=== PATIENT | female | born 1955 | race Caucasian/White ===

== ENCOUNTER → 2017-01-09 | Outpatient (CLI) | payer BC ==
--- NOTE | 2017-01-09 16:51 | CT ---
EXAMINATION TYPE: CT angio chest DATE OF EXAM: 01/09/2017 4:35 PM COMPARISON: NONE HISTORY: Follow-up study for pulmonary embolism. CT DLP: 325.30 mGycm Automated exposure control for dose reduction was used. CONTRAST: CTA scan of the thorax is performed with IV Contrast, patient injected with 80 mL of Omnipaque 350, p ulmonary embolism protocol. . FINDINGS: LUNGS: Subpleural nodule left lower lobe measuring 4 mm. Subsegmental changes are seen at both lung b ases. Changes of COPD with emphysematous changes particularly involving the upper lungs. Subsegmental changes involving the left upper lobe likely related atelectasis. MEDIASTINUM: There is satisfactory enhancement of the pulmonary artery and its branches, there is no CT evidence for pulmonary embolism. There are no greater than 1 cm hilar or mediastinal lymph nodes. No pericardial effusion is seen. OTHER: Hypertrophic and degenerative change of the spine noted. Surgical clips in the gallbladder fo ssa noted. Less than 1 cm nodularity of the left adrenal gland. IMPRESSION: 1. INTERVAL RESOLUTION OF PULMONARY EMBOLISM. 2. COPD AND PLEURAL BASED THICKENING AND AREAS OF ATELECTASIS. PLEURAL-BASED NODULE IN THE LEFT LOWER LOBE LIKELY IS POSTINFLAMMATORY.
== END | disposition home or self-care (01) ==
LOC: RADCTMAIN 16:11
PROVIDERS: ATTEND Internal Medicine Critical Care Medicine
DX: I26.99 Other pulmonary embolism without acute cor pulmonale (principal); J44.9 Chronic obstructive pulmonary disease, unspecified; J92.9 Pleural plaque without asbestos; J98.11 Atelectasis; R91.1 Solitary pulmonary nodule
CPT/HCPCS: 71275; Q9967

== ENCOUNTER → 2019-07-08 | Outpatient (CLI) | payer BC ==
--- NOTE | 2019-07-09 02:57 | MR ---
EXAMINATION TYPE: MR knee LT wo con DATE OF EXAM: 07/08/2019 COMPARISON: None HISTORY: Pain in left knee / Derangement TECHNIQUE: Multiplanar, multisequence imaging of the left knee is performed without IV contrast. FINDINGS: There is a very large knee joint effusion. The posterior cruciate ligament is intact. There is some d eformity and thickening of the anterior cruciate ligament at the attachment on the tibia. There is pr obably a complete tear at the attachment on the tibia spine. There is hypertrophic spurring on the pa tella. There is moderate hypertrophic spurring of the medial and lateral femoral and tibial condyles. There is a 1 cm area of increased fluid signal in the subchondral medial tibial condyle consistent w ith a degenerative cyst formation. There is thinning and deformity of the anterior horn of the medial meniscus. There is minimal tear of the superior surface of the posterior horn medial meniscus. There is some degenerative mild thinning of the lateral meniscus. There is horizontal tear of the ant erior horn lateral meniscus. There is subcutaneous edema over the anterior infrapatellar tendon. The collateral ligaments appear intact. There is a small 2 x 1 cm popliteal cyst. 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 Degenerative cyst in the medial tibial condyle. Complete tear of the anterior cruciate ligament. Tear of the anterior horn of the lateral meniscus. Tear of the superior surface posterior horn medial meniscus. Large complex tear of the anterior horn of the medial meniscus. Very large knee joint effusion. Moderate hypertrophic osteoarthritis at the patellofemoral joint.
== END | disposition home or self-care (01) ==
LOC: RADMRIMAIN 14:47
PROVIDERS: ATTEND Family Medicine
DX: M17.12 Unilateral primary osteoarthritis, left knee (principal); S83.512A Sprain of anterior cruciate ligament of left knee, initial encounter; S83.282A Other tear of lateral meniscus, current injury, left knee, initial encounter; S83.232A Complex tear of medial meniscus, current injury, left knee, initial encounter; M85.68 Other cyst of bone, other site

== ENCOUNTER → 2019-12-11 | Outpatient (CLI) | payer BC ==
--- NOTE | 2019-12-11 13:33 | XR ---
EXAMINATION TYPE: XR knee complete LT DATE OF EXAM: 12/11/2019 COMPARISON: NONE HISTORY: Pain TECHNIQUE: Four views are submitted. FINDINGS: Joint spaces are preserved. Postsurgical changes noted with a large suprapatellar bursal fluid collec tion.. No acute fracture seen. IMPRESSION: 1. Postsurgical change with a large suprapatellar bursal fluid collection
== END | disposition home or self-care (01) ==
LOC: RADXRYALE 13:04
PROVIDERS: ATTEND Orthopaedic Surgery
DX: Z47.1 Aftercare following joint replacement surgery (principal); Z96.652 Presence of left artificial knee joint

== ENCOUNTER → 2019-12-31 | Outpatient (CLI) | payer BC ==
--- NOTE | 2019-12-31 20:56 | CONS ---
CONSULTATION DATE OF SERVICE: 12/31/2019 64-year-old lady has been evaluated in [facility] because her oximetry showed bruxism drops during sleep. Possible obstructive sleep apnea-hypopnea syndrome. HISTORY OF PRESENT ILLNESS/SLEEP-WAKE EVALUATION: SLEEP SCHEDULE: Patient's usual sleep schedule from 8 to 10 pm to 5:30 am. FALLING ASLEEP: Sometimes patient has problems with falling asleep, has TV set in bedroom. DURING SLEEP: She snores. She wakes up from sleep about 3 times to go to bathroom at night and has gone on for many years. No history of hypnagogic hallucinations, sleep paralysis or cataplexy. DURING THE DAY/SLEEP WAKE EVALUATION: During the day the patient usually does not take any naps because she is busy and no time for it. Sparks Sleepiness Scale is 2. PAST MEDICAL HISTORY: Positive for hypertension, hyperlipidemia. PAST SURGICAL HISTORY: Total replacement of left knee in October of 2019, cholecystectomy, bladder suspension. MEDICATIONS: Metoprolol extended release, atorvastatin, Naprosyn, vitamin D, fish oil. SOCIAL HISTORY: Positive for smoking for about 20 years. Quit about 20 years ago. Alcohol consumption none at the present time. REVIEW OF SYSTEMS: No chest pain. No headache. No shortness of breath, awakenings from sleep during. PHYSICAL EXAM: A lady without distress BP more than 200/77, HR 69, RR 16, height 5 and 7, weight 197.4, body mass index 30.8, temperature 98.0, oxygen saturation at room air around 93%. Oropharynx extremely low position of soft palate. Mallampati 4. NECK: 15- 1/3 inches in circumference. Supple, no JVD. Thyroid is not palpable. LUNGS: Clear to percussion and to auscultation. Good air exchange. No wheezing or rhonchi. HEART: S1, S2 regular. No murmurs, gallops, or rubs. ABDOMEN: Soft and nontender. Bowel sounds are present. No organomegaly appreciated. EXTREMITIES: Extremities very minimal 1+. Bilateral ankle edema. INSPECTOR PLATING: Awake, alert, and oriented X3. Cranial nerves 2 to 7 intact. There is no fasciculation or atrophy. noted. No focal deficits observed. IMPRESSION: 1. Snoring, multiple awakenings from sleep, extremely low position of soft palate. The patient sometimes feels sleepy during the day, but usually does not take naps and that is probably why her Sparks Sleepiness Scale is in low range. Possible obstructive sleep apnea-hypopnea syndrome. 2. History of smoking for about 20 pack years, quit about 20 years ago. 3. Hypertension not on good control with 1 medication. 4. Hyperlipidemia. 5. Status post left knee total replacement. 6. Status post cholecystectomy. 7. Bladder suspension .. PLAN: 1. Polysomnography for evaluation of patient's breathing during sleep. 2. CPAP/BiPAP titration if sleep study confirms obstructive sleep apnea-hypopnea syndrome. 3. Preferable position during sleep on the side. 4. No driving if patient feels any sleepiness. 5. I will see patient for follow up visit to explain results of testing and following plan. Thank you very much for referring this patient for consultation. Sincerely, Serafin Ledesma MD, PhD, FAASM Diplomat of [place] [employer] [place] [employer] of [facility] MMODL / IJN: [id number] /
== END | disposition home or self-care (01) ==
LOC: SLEEP 16:03
PROVIDERS: ATTEND Internal Medicine
DX: G47.8 Other sleep disorders (principal); R06.83 Snoring; I10 Essential (primary) hypertension; E78.5 Hyperlipidemia, unspecified; Z96.652 Presence of left artificial knee joint; Z87.891 Personal history of nicotine dependence; Z90.49 Acquired absence of other specified parts of digestive tract; Z98.890 Other specified postprocedural states; Z79.1 Long term (current) use of non-steroidal anti-inflammatories (NSAID); Z79.899 Other long term (current) drug therapy
CPT/HCPCS: 99211

== ENCOUNTER → 2021-12-07 | Outpatient (CLI) | payer BC ==
--- NOTE | 2021-12-08 15:02 | MM ---
Reason for exam: screening (asymptomatic). Last mammogram was performed 6 years and 2 months ago. History: Patient is postmenopausal and has history of other cancer at age 57. Family history of breast cancer in sister at age 58. Took hormonal contraceptives for 2 years beginning at age 25. Physical Findings: A clinical breast exam by your physician is recommended on an annual basis and results should be correlated with mammographic findings. MG 3D Screening Mammo W/Cad Bilateral CC and MLO view(s) were taken. Prior study comparison: October 13, 2015, bilateral MG screening mammo w CAD. February 10, 2014, bilateral digital screening mammo w/CAD. The breast tissue is extremely dense which could obscure a lesion on mammography. There are benign appearing round calcifications bilaterally. There is no discrete abnormality. ASSESSMENT: Benign, BI-RAD 2 RECOMMENDATION: Routine screening mammogram of both breasts in 1 year.
== END | disposition home or self-care (01) ==
LOC: RADMAMWWP 07:06
PROVIDERS: ATTEND Family Medicine
DX: Z12.31 Encounter for screening mammogram for malignant neoplasm of breast (principal)
CPT/HCPCS: 77063; 77067

== ENCOUNTER → 2023-06-26 | Outpatient (CLI) | payer MEDICARE ==
--- NOTE | 2023-06-27 18:20 | MM ---
Reason for Exam: Screening (asymptomatic). Last mammogram was performed 1 year(s) and 7 month(s) ago. Patient History: Menarche at age 16. First Full-Term at age 25. Postmenopausal. Patient has history of breast feeding. Hormonal Contraceptives for 2 years from age 25 until age 27. Sister had breast cancer, age 58. Risk Values: Marina 5 year model risk: 2.9%. NCI Lifetime model risk: 10.3%. Prior Study Comparison: 02/10/2014 Bilateral Screening Mammogram, [facility]. 10/13/2015 Bilateral Screening Mammogram, [facility]. 12/07/2021 Bilateral Screening Mammogram, [facility]. Tissue Density: The breast tissue is extremely dense which could obscure a lesion on mammography. Findings: Analyzed By CAD. Pattern appears symmetrical and stable. Benign scattered punctate calcifications are present bilaterally. No significant interval changes are evident. No suspicious groups of microcalcifications, spiculated or lobular masses, architectural distortion or other secondary signs of malignancy are mammographically apparent. Overall Assessment: Benign, BI-RAD 2 Management: Screening Mammogram of both breasts in 1 year. A negative mammogram report should not preclude additional follow up of suspicious palpable abnormalities. Patient should continue monthly self breast exam. A clinical breast exam by your physician is recommended on an annual basis and results should be correlated with mammographic findings. Electronically signed and approved by: Isrrael Platt D.O. Radiologis
== END | disposition home or self-care (01) ==
LOC: RADMAMWWP 06:55
PROVIDERS: ATTEND Family Medicine
DX: Z12.31 Encounter for screening mammogram for malignant neoplasm of breast (principal); Z78.0 Asymptomatic menopausal state; Z80.3 Family history of malignant neoplasm of breast
CPT/HCPCS: 77063; 77067

== ENCOUNTER 2024-02-19 18:42 | Emergency (ER) | payer MEDICARE ==
[2024-02-19 19:03] LABS: Basophils % (A) 0 %; Eosinophils # (A) 0.3 k/uL (0-0.7); Eosinophils % (A) 2 %; HCT 53.2 % (34.0-46.0); HGB 16.8 gm/dL (11.4-16.0); Lymphocytes # (A) 2.1 k/uL (1.0-4.8); Lymphocytes % (A) 15 %; MCH 29.5 pg (25.0-35.0); MCHC 31.6 g/dL (31.0-37.0); MCV 93.6 fL (80.0-100.0); Mean Platelet Volume 8.5; Monocytes # (A) 0.7 k/uL (0-1.0); Monocytes % (A) 5 %; Neutrophils # (A) 10.9 k/uL (1.3-7.7); Neutrophils % (A) 77 %; Platelet Count 210 k/uL (150-450); RBC 5.69 m/uL (3.80-5.40); RDW 13.9 % (11.5-15.5); WBC 14.2 k/uL (3.8-10.6)
--- NOTE | 2024-02-19 19:17 | ED ---
Neuro HPI - General Chief Complaint: Neuro Symptoms/Deficit Stated Complaint: Neuro Symptoms Source: EMS Mode of arrival: EMS Limitations: physical limitation - History of Present Illness Is the patient presenting with stroke symptoms?: Yes Last Known Well Date: 02/19/24 Last Known Well Time: 14:00 Onset/Timin -: hour(s) Initial Comments: Patient is a 68-year-old woman who was brought to have evaluation for suspected stroke. The patient reportedly was texting with her who was at work at 2 PM and then shortly after that stopped texting. He arrived home at 5:30 PM and found her lying on the floor she appeared unable to move her right side and she was not speaking. He called EMS who brings the patient here. The patient is not able to add any additional history. Time: 19:07 Last Observed Normal: 14:00 Location: speech, right face, right arm, right leg, altered History of same: No Place: home Severity: severe Quality: weak Improves With: none Worsens With: none Context: sudden onset - Related Data Home Medications: Home Medications Medication Instructions Recorded Confirmed Metoprolol Succinate (ER) [Toprol 50 mg PO HS 09/06/16 09/06/16 Xl] Simvastatin [Zocor] 40 mg PO HS 09/06/16 09/06/16 Previous Rx's Medication Instructions Recorded Levofloxacin [Levaquin] 500 mg PO DAILY #5 tab 09/09/16 Allergies/Adverse Reactions: Allergies Allergy/AdvReac Type Severity Reaction Status Date / Time No Known Allergies Allergy Verified 09/06/16 18:01 Review of Systems ROS Statement: Those systems with pertinent positive or pertinent negative responses have been documented in the HPI. ROS Other: All systems not noted in ROS Statement are negative. Limitations: ROS unobtainable due to patients medical condition General Exam General appearance: alert Head exam: Present: atraumatic, normocephalic Eye exam: Present: PERRL, other (Gaze is deviated to the left). Absent: EOMI, scleral icterus, conjunctival injection ENT exam: Present: normal oropharynx, mucous membranes moist Neck exam: Present: normal inspection, full ROM. Absent: meningismus Respiratory exam: Present: respiratory distress (There is mild tachypnea), rhonchi. Absent: wheezes, rales, stridor, accessory muscle use Cardiovascular Exam: Present: regular rate, normal rhythm, normal heart sounds. Absent: systolic murmur, diastolic murmur, rubs, gallop GI/Abdominal exam: Present: soft. Absent: distended, tenderness, guarding, rebound, rigid, mass Extremities exam: Present: normal inspection, normal capillary refill. Absent: pedal edema, calf tenderness Back exam: Present: normal inspection. Absent: CVA tenderness (R), CVA tenderness (L) Neurological exam: Present: alert. Absent: oriented X3 Expanded Cranial nerves: EOM's Intact: Abnormal Right, Gag Reflex: Normal Motor strength exam: RUE: 0, LUE: 2/1, RLE: 0, LLE: 2/1 Eye Response: (4) open spontaneously Motor Response: (5) localizes to pain Verbal Response: incomprehensible sounds Skin exam: Present: warm, dry, intact, normal color. Absent: rash Stroke MDM - Lab Data Result diagrams: 02/19/24 18:54 02/19/24 19:12 Lab Results 02/19/24 02/19/24 02/19/24 Range/Units 18:46 18:54 18:54 WBC 14.2 H (3.8-10.6) k/uL RBC 5.69 H (3.80-5.40) m/uL Hgb 16.8 H (11.4-16.0) gm/dL Hct 53.2 H (34.0-46.0) % MCV 93.6 (80.0-100.0) fL MCH 29.5 (25.0-35.0) pg MCHC 31.6 (31.0-37.0) g/dL RDW 13.9 (11.5-15.5) % Plt Count 210 (150-450) k/uL MPV 8.5 Neutrophils % 77 % Lymphocytes % 15 % Monocytes % 5 % Eosinophils % 2 % Basophils % 0 % Neutrophils # 10.9 H (1.3-7.7) k/uL Lymphocytes # 2.1 (1.0-4.8) k/uL Monocytes # 0.7 (0-1.0) k/uL Eosinophils # 0.3 (0-0.7) k/uL Basophils # 0.0 (0-0.2) k/uL PT 10.6 (10.0-12.5) sec INR 1.0 (<1.2) APTT 22.8 (22.0-30.0) sec Sodium (137-145) mmol/L Potassium (3.5-5.1) mmol/L Chloride (98-107) mmol/L Carbon Dioxide (22-30) mmol/L Anion Gap mmol/L BUN (7-17) mg/dL Creatinine (0.52-1.04) mg/dL Est GFR (CKD-EPI)AfAm (>60 ml/min/1.73 sqM) Est GFR (CKD-EPI)NonAf (>60 ml/min/1.73 sqM) Glucose (74-99) mg/dL POC Glucose (mg/dL) 130 H (70-110) mg/dL POC Glu Transmitter Engineer In Charge ID Whitney Peña Calcium (8.4-10.2) mg/dL Total Bilirubin (0.2-1.3) mg/dL AST (14-36) U/L ALT (4-34) U/L Alkaline Phosphatase (38-126) U/L Creatine Kinase (30-135) U/L Total Creatine Kinase (30-223) u/L CK-MM (CK-3) (96.7-100.0) % CK-MB (CK-2) (0.0-3.3) % CK-BB (CK-1) (0.0) % Troponin I (0.000-0.034) ng/mL Total Protein (6.3-8.2) g/dL Albumin (3.5-5.0) g/dL 02/19/24 02/19/24 02/19/24 Range/Units 19:06 19:12 19:12 WBC (3.8-10.6) k/uL RBC (3.80-5.40) m/uL Hgb (11.4-16.0) gm/dL Hct (34.0-46.0) % MCV (80.0-100.0) fL MCH (25.0-35.0) pg MCHC (31.0-37.0) g/dL RDW (11.5-15.5) % Plt Count (150-450) k/uL MPV Neutrophils % % Lymphocytes % % Monocytes % % Eosinophils % % Basophils % % Neutrophils # (1.3-7.7) k/uL Lymphocytes # (1.0-4.8) k/uL Monocytes # (0-1.0) k/uL Eosinophils # (0-0.7) k/uL Basophils # (0-0.2) k/uL PT (10.0-12.5) sec INR (<1.2) APTT (22.0-30.0) sec Sodium 141 (137-145) mmol/L Potassium 4.2 (3.5-5.1) mmol/L Chloride 107 (98-107) mmol/L Carbon Dioxide 26 (22-30) mmol/L Anion Gap 8 mmol/L BUN 23 H (7-17) mg/dL Creatinine 0.88 (0.52-1.04) mg/dL Est GFR (CKD-EPI)AfAm 79 (>60 ml/min/1.73 sqM) Est GFR (CKD-EPI)NonAf 69 (>60 ml/min/1.73 sqM) Glucose 131 H (74-99) mg/dL POC Glucose (mg/dL) (70-110) mg/dL POC Glu Transmitter Engineer In Charge ID Calcium 9.4 (8.4-10.2) mg/dL Total Bilirubin 0.8 (0.2-1.3) mg/dL AST 68 H (14-36) U/L ALT 75 H (4-34) U/L Alkaline Phosphatase 142 H (38-126) U/L Creatine Kinase 72 (30-135) U/L Total Creatine Kinase 72 (30-223) u/L CK-MM (CK-3) 98.5 (96.7-100.0) % CK-MB (CK-2) 0.0 (0.0-3.3) % CK-BB (CK-1) 1.5 H (0.0) % Troponin I <0.012 (0.000-0.034) ng/mL Total Protein 7.3 (6.3-8.2) g/dL Albumin 4.1 (3.5-5.0) g/dL - Medical Decision Making Patient is 68-year-old woman brought to have evaluation for suspected stroke. On arrival she does have right-sided neglect and flaccid paralysis. The patient not able to follow commands for the remainder of the neuroexam though does have some movement to left side, however does not resist gravity. Patient sent directly to CT following the initial exam. Case discussed with Dr. Serrano, who did look at the CT scans, phoned back and requested patient to be sent directly to the interventional suite at [facility]. The patient is outside of the [facility] window. Transfer team is contacted to facilitate transfer. The patient had CT of the brain which I interpreted as negative for acute intracranial hemorrhage and negative for acute bony injury The patient had chest x-ray which I interpreted as negative for acute infiltrate, pneumothorax, congestive heart failure Was pt. sent in by a medical professional or institution (, PA, DATER ASSEMBLER, urgent care, hospital, or intermediate...) When possible be specific @ -[No] Did you speak to anyone other than the patient for history (EMS, parent, family, police, friend...)? What history was obtained from this source @ -[EMS gave history. Family gave history Did you review nursing and triage notes (agree or disagree)? Why? @ -[I reviewed and agree with nursing and triage notes] Were old charts reviewed (outside hosp., previous admission, EMS record, old EKG, old radiological studies, urgent care reports/EKG's, intermediate records)? Report findings @ -[No old charts were reviewed] Differential Diagnosis (chest pain, altered mental status, abdominal pain women, abdominal pain men, vaginal bleeding, weakness, fever, dyspnea, syncope, headache, dizziness, GI bleed, back pain, seizure, CVA, palpatations, mental health, musculoskeletal)? @ -[Differential CVA Ischemic stroke, hemorrhagic stroke, brain tumor, atypical migraine, Wernicke's encephalopathy, seizure, multiple sclerosis, meningitis, encephalitis, hypoglycemia, Guillain-Arias, electrolytes disturbance, myasthenia gravis.... This is not meant to be an all-inclusive list EKG interpreted by me (3pts min.). @ -[I interpreted as above] X-rays interpreted by me (1pt min.). @ -[I interpreted as above CT interpreted by me (1pt min.). @ -[I interpreted as above U/S interpreted by me (1pt. min.). @ -[None done] What testing was considered but not performed or refused? (CT, X-rays, U/S, l abs)? Why? @ -[None] What meds were considered but not given or refused? Why? @ -[The patient is outside of the window for thrombolytic Did you discuss the management of the patient with other professionals (professionals i.e. , PA, DATER ASSEMBLER, lab, RT, psych nurse, social studies department chair, manager perioperative, teacher, project control officer, comp field case manager)? Give summary @ -Yes, see the above notes for discussion with interventional stroke team Was smoking cessation discussed for >3mins.? @ -[No] Was critical care preformed (if so, how long)? @ -[Yes 40 minutes Were there social determinants of health that impacted care today? How? (Homelessness, low income, unemployed, alcoholism, drug addiction, transportation, low edu. Level, literacy, decrease access to med. care, nursing home, rehab)? @ -[No] Was there de-escalation of care discussed even if they declined (Discuss DNR or withdrawal of care, Hospice)? DNR status @ -[No] What co-morbidities impacted this encounter? (DM, HTN, Smoking, COPD, CAD, Cancer, CVA, ARF, Chemo, Hep., AIDS, mental health diagnosis, sleep apnea, morbid obesity)? @ -[Hypertension, hypercholesterolemia Was patient admitted / discharged? Hospital course, mention meds given and route, prescriptions, significant lab abnormalities, going to OR and other pertinent info. @ -[See above note Undiagnosed new problem with uncertain prognosis? @ -[No] Drug Therapy requiring intensive monitoring for toxicity (Heparin, Nitro, Insulin, Cardizem)? @ -[No] Were any procedures done? @ -[No] Diagnosis/symptom? @ -[Acute ischemic stroke Acute, or Chronic, or Acute on Chronic? @ -[Acute Uncomplicated (without systemic symptoms) or Complicated (systemic symptoms)? @ -[Uncomplicated Side effects of treatment? @ -[No] Exacerbation, Progression, or Severe Exacerbation? @ -[No] Poses a threat to life or bodily function? How? (Chest pain, USA, NM, pneumonia, PE, COPD, DKA, ARF, appy, cholecystitis, CVA, Diverticulitis, Homicidal, Suicidal, threat to staff... and all critical care pts) @ -[Yes patient requires further treatment for acute ischemic stroke to preserve brain function and will be transferred - EKG Data -: EKG Interpreted by Sd EKG shows normal: sinus rhythm, axis (Normal), intervals (QT interval prolonged.) Rate: normal (Rate 65 bpm) Past Medical History Past Medical History: Hyperlipidemia, Hypertension, Pneumonia Additional Past Medical History / Comment(s): MURMUR WHEN YOUNGER, MILD URINARY INCONT-WEARS A PAD. History of Any Multi-Drug Resistant Organisms: None Reported Past Surgical History: Bladder Surgery, Cholecystectomy Additional Past Surgical History / Comment(s): bladder suspension ,EGD Past Anesthesia/Blood Transfusion Reactions: No Reported Reaction Additional Past Anesthesia/Blood Transfusion Reaction / Comment(s): HAD BLOOD TRANSFUSION AFTER CHILDBIRTH-NO REACTION Past Psychological History: No Psychological Hx Reported Past Alcohol Use History: None Reported Additional Past Alcohol Use History / Comment(s): STARTED SMOKING AT AGE 15(1968_ AND QUIT 2000,SMOKED 2 PPD Past Drug Use History: None Reported - Past Family History Mother Family Medical History: Cancer Father Family Medical History: Congestive Heart Failure (CHF) Course Vital Signs 02/19/24 02/19/24 02/19/24 18:42 18:51 18:54 Pulse Rate 68 68 Respiratory 24 Rate Blood Pressure 230/128 203/81 170/136 O2 Sat by Pulse 94 L Oximetry 02/19/24 02/19/24 02/19/24 19:00 19:08 19:31 Pulse Rate 71 66 Respiratory 20 16 Rate Blood Pressure 185/89 168/141 175/92 O2 Sat by Pulse 94 L 95 Oximetry - Reevaluation(s) Reevaluation #1: 02/19/24 19:48 Case discussed with patient and with patient's family regarding transfer and patient's family is in agreement. Critical Care Time Critical Care Time: Yes (40 minutes) Disposition Clinical Impression: Cerebrovascular accident (CVA) Disposition: OTHER INSTITUTION NOT DEFINED Condition: Critical Is patient prescribed a controlled substance at d/c from ED?: No Referrals: Farzad Deluca DO [Primary Care Provider] - 1-2 days - Out of Hospital Transfer - Req. Specs Out of Hospital Transfer - Requested Specifics: Neurological ICU
[2024-02-19 19:19] LABS: Partial Thromboplastin Time 22.8 sec (22.0-30.0); Prothrombin Time 10.6 sec (10.0-12.5)
--- NOTE | 2024-02-19 19:26 | CT ---
EXAMINATION TYPE: CODE STROKE: CT brain wo contr CT DLP: 1246.6 mGycm, Automated exposure control for dose reduction was used. DATE OF EXAM: 02/19/2024 7:14 PM COMPARISON: None. CLINICAL INDICATION:Female, 68 years old with history of Neuro deficit, acute, stroke suspected, Neur o deficit, acute, stroke suspected. unresponsive TECHNIQUE: Brain: Axial CT images of the brain were obtained with coronal and sagittal reformats created and rev iewed. Contrast used: None. Oral contrast used: None. FINDINGS: Extra-axial spaces: No abnormal extra-axial fluid collections. Ventricular system: Ventricles appear dilated in proportion to the degree of cerebral atrophy. Cerebral parenchyma: No increased attenuation to suggest acute intraparenchymal hemorrhage. The gra y-white matter interface appears maintained. Mild/moderate generalized brain atrophy. Scattered hyp oattenuating areas are seen within the cerebral white matter, nonspecific but most often seen with ch ronic microvascular ischemic changes; mild/moderate in degree. Cerebellum: No acute abnormality. Mass effect: No evidence of mass effect or midline shift. Intracranial vasculature: Atherosclerotic calcifications of the larger arteries near the skull base. Soft tissues: No acute or concerning abnormality. Visualized orbits: Orbital contents appear grossly intact. Calvarium/osseous structures: No evidence of calvarial fracture. Paranasal sinuses and mastoid air cells: Mild scattered paranasal sinus mucosal thickening. No signif icant fluid. MRI is more sensitive for detecting acute processes such as infarct, and may be considered if clinica lly warranted. IMPRESSION: 1. No CT evidence of an acute intracranial abnormality. 2. Atrophy and chronic microvascular ischemic white matter changes.
[2024-02-19 19:39] LABS: ALT 75 U/L (4-34); AST 68 U/L (14-36); African American GFR (CKD) 79 (>60 ml/min/1.73 sqM); Albumin 4.1 g/dL (3.5-5.0); Alkaline Phosphatase 142 U/L (38-126); Anion Gap 8 mmol/L; Blood Urea Nitrogen 23 mg/dL (7-17); Calcium 9.4 mg/dL (8.4-10.2); Carbon Dioxide 26 mmol/L (22-30); Chloride 107 mmol/L (98-107); Creatine Kinase 72 U/L (30-135); Glucose 131 mg/dL (74-99); Non-African American GFR(CKD) 69 (>60 ml/min/1.73 sqM); Potassium 4.2 mmol/L (3.5-5.1); Sodium 141 mmol/L (137-145); Total Bilirubin 0.8 mg/dL (0.2-1.3); Total Protein 7.3 g/dL (6.3-8.2)
[2024-02-19 19:48] VITALS: BP 175/92; PULSE 66; RESP 16
--- NOTE | 2024-02-19 19:53 | CT ---
EXAMINATION TYPE: CT angio head neck DATE OF EXAM: 02/19/2024 7:21 PM COMPARISON: Same date CT head. CLINICAL INDICATION:Female, 68 years old with history of Neuro deficit, acute, stroke suspected; [facility], TECHNIQUE: Axially acquired helical CT angiogram of the head and neck was obtained with contrast. Axi al images are supplemented with 3D reconstructions [facility] NAS[facility]ET criteria used. Contrast used: 65 mL Isovue 370 IV Oral contrast used: None. CT DLP: 691.4 mGycm, Automated exposure control for dose reduction was used. FINDINGS: CTA Neck: A 3 vessel aortic arch is shown. Atherosclerotic plaque is present in the aortic arch and at the [place] gin of the left subclavian artery with about 50% diameter stenosis. No dissection flap. Right carotid system: The common carotid is patent. No significant plaque. There is no hemodynamicall y significant diameter stenosis, dissection, nor pseudoaneurysm present. Left carotid system: The common carotid is patent. Small amount of mostly calcified plaque at the bif urcation, proximal ECA and ICA. There is no hemodynamically significant diameter stenosis, dissection , nor pseudoaneurysm present. Vertebral arteries: Mild atherosclerotic calcification without significant stenosis in the proximal l eft vertebral artery. No significant plaque or significant stenosis of the proximal right vertebral a rtery. The vertebrals are then otherwise patent to the skull base. The left vertebral artery is dominant. Other: Visualized neck soft tissues show no concerning abnormality. Visualized thyroid is heterogeneo usly enhancing with subcentimeter nodule along the right-sided isthmus suggested approximately 11 mm in size. Cervical spine shows mild/moderate degenerative changes with preserved alignment and no crit ical canal/foraminal stenosis. Imaged portions of the lung apices show scarring and senescent changes . No acute infiltrate or pneumothorax.. CTA Head: There are some calcifications of the cavernous portions of the ICAs without significant stenosis. On the right, supraclinoid ICA, bifurcation, SHANEL, MCA appear normally patent. It appears the right AC A supplies both of the ACAs farther distally. Proximal left SHANEL is relatively hypoplastic. On the left, the supraclinoid ICA is patent. Hypoplastic A1 segment of the left SHANEL. Left MCA is not seen to be opacified in its M1 and M2 segments, likely occluded with thrombosis. Some reconstitution of flow seen in distal MCA branches but the MCA territory appears relatively hyperperfused. No hemorr sada is suggested. The intracranial vertebral arteries enhance normally, left is dominant and right essentially ends as the PICA. Basilar artery is patent and mildly tortuous. Normal basilar bifurcation without evidence o f aneurysm. Visualized proximal cancer program consultant are patent. Posterior communicating arteries are not clearly identified. No hemodynamically significant stenosis, aneurysm, dissection, or arteriovenous malformation is shown . The dural venous sinuses appear grossly patent without evidence of thrombosis. Other: Please refer to same-day CT head report.. IMPRESSION: CTA neck: 1. Patent CTA neck. 2. No occlusion, hemodynamically significant diameter stenosis, dissection, or pseudoaneurysm in the carotid or vertebral arteries in the neck. CTA head: OCCLUDED PROXIMAL TO MID LEFT MIDDLE CEREBRAL ARTERY.
[2024-02-19 19:55] LABS: Glucose,Whole Blood 130 mg/dL (70-110)
[2024-02-19] MEDS: LABETALOL 5 MG/ML VIAL MDV IVP STA (19:55)
--- NOTE | 2024-02-19 20:43 | XR ---
EXAMINATION TYPE: XR chest 1V portable DATE OF EXAM: 02/19/2024 7:48 PM CLINICAL INDICATION:Female, 68 years old with history of altered mental status; [facility] COMPARISON: Chest radiographs from 09/07/2016. TECHNIQUE: XR chest 1V portable Frontal view of the chest. FINDINGS: Lungs/Pleura: There is flattening of the diaphragm with increased lucency of the lungs. No evidence o f pneumothorax, pleural effusion or focal consolidation. Pulmonary vascularity: Unremarkable. Heart/mediastinum: Cardiomediastinal silhouette is unremarkable. Musculoskeletal: No acute osseous pathology. IMPRESSION: Mild pulmonary vascular congestion superimposed on COPD.
== END 2024-02-19 19:58 | disposition other institution (70) ==
LOC: EC 18:42
DX: I63.9 Cerebral infarction, unspecified (principal); I67.82 Cerebral ischemia; I10 Essential (primary) hypertension; E78.00 Pure hypercholesterolemia, unspecified; Z87.891 Personal history of nicotine dependence; Z90.49 Acquired absence of other specified parts of digestive tract
CPT/HCPCS: 36415; 93005; 82552; 80053; 82550 ×2; 84484; 85025; 85610; 85730; 71045; 70496; 70450; 70498; 99291; Q9967; J1920

== ENCOUNTER → 2024-03-11 | Outpatient (CLI) | payer MEDICARE, BC ==
--- NOTE | 2024-03-11 23:21 | CT ---
EXAMINATION TYPE: CT brain wo con DATE OF EXAM: 03/11/2024 COMPARISON: 02/19/2024 INDICATION: left mca ischemic stroke DLP: 1150.50 mGycm, Automated exposure control for dose reduction was used. CONTRAST: None CT of the brain is performed utilizing 3 mm thick sections through the posterior fossa and 3 mm thick sections through the remaining calvarium. Study is performed within 24 hours of arrival to the hosp ital. No abnormal hyperdensity is present to suggest an acute intracranial hemorrhage. No mass lesion is evident. No acute infarcts are evident. There is hypodensity within the left middle cerebral artery distributi on within the subcortical white matter. Exvacuo effect is evident on regional sulci. No mass effect i s evident. Findings can be compatible with prior subcortical infarct. Ventricles and sulci are prominent for the patient age. Paranasal sinuses and mastoid air cells within the [id number] are clear. IMPRESSION: 1. 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
== END | disposition home or self-care (01) ==
LOC: RADCTMAIN 13:43
PROVIDERS: ATTEND Psychiatry & Neurology Vascular Neurology
DX: I63.412 Cerebral infarction due to embolism of left middle cerebral artery (principal); R13.12 Dysphagia, oropharyngeal phase; E78.2 Mixed hyperlipidemia; E87.1 Hypo-osmolality and hyponatremia; G47.33 Obstructive sleep apnea (adult) (pediatric); I10 Essential (primary) hypertension; I48.0 Paroxysmal atrial fibrillation; Z86.73 Personal history of transient ischemic attack (TIA), and cerebral infarction without residual deficits
CPT/HCPCS: 70450

== ENCOUNTER 2024-03-22 04:25 | Inpatient (IN) | payer MEDICARE, BC ==
--- NOTE | 2024-03-22 05:02 | ED ---
SOB HPI - General Chief Complaint: Shortness of Breath Stated Complaint: Low oxygen saturations Time Seen by Provider: 03/22/24 04:34 Source: patient, EMS Mode of arrival: EMS Limitations: no limitations - History of Present Illness Initial Comments: This patient is a 68-year-old woman who arrives from retirement to have evaluation for dyspnea. The patient is in retirement for rehabilitation after having had stroke with right-sided weakness and expressive aphasia. The patient developed marked shortness of breath, the retirement staff noted that she was laboring somewhat and that she was appearing dusky. EMS arrived and found that the oxygen saturations were in the upper 70s. The patient was placed on oxygen and transported here. Patient had not noted fever or cough. No chest pain. In addition the patient had reportedly tested positive for COVID infection 2 days ago at the retirement. Patient appears to have history of bilateral PE in 2015, does not appear to be currently taking coagulant medication MD Complaint: shortness of breath -: hour(s) Severity: severe Severity scale (1-10): 0 Consistency: constant Improves With: oxygen Worsens With: nothing Associated Symptoms: denies other symptoms Treatments Prior to Arrival: oxygen - Related Data Home Medications Medication Instructions Recorded Confirmed Acetaminophen [Tylenol Arthritis] 650 mg PO Q4H PRN 03/22/24 03/22/24 Amiodarone [Cordarone] 200 mg PO BID@0800,17003/22/24 03/22/24 Ascorbic Acid [Vitamin C] 1,000 mg PO DAILY@0803/22/24 03/22/24 Aspirin 81 mg PO DAILY@0800 03/22/24 03/22/24 Cholecalciferol (Vitamin D3) 50 mcg PO DAILY@0803/22/24 03/22/24 [Vitamin D3 (50 Mcg = 2000 Iu)] Losartan Potassium [Cozaar] 100 mg PO DAILY@0800 03/22/24 03/22/24 Magic Cup 1 dose PO BID@1200,1700 03/22/24 03/22/24 Magnesium Hydroxide [Milk of 7,200 mg PO Q48H PRN 03/22/24 03/22/24 Magnesia Concentrate] Na Phos,M-B/Na Phos,Di-Ba [Fleet 133 ml RECTAL DAILY PRN 03/22/24 03/22/24 Adult] Zinc Sulfate [Orazinc] 220 mg PO DAILY@0800 03/22/24 03/22/24 amLODIPine [Norvasc] 5 mg PO BID@0800,1700 03/22/24 03/22/24 bisacodyL [Dulcolax] 10 mg RECTAL DAILY PRN 03/22/24 03/22/24 carvediloL [Coreg] 25 mg PO BID@0800,1700 03/22/24 03/22/24 polyethylene glycoL 3350 [Miralax] 17 gm PO DAILY@0800 03/22/24 03/22/24 Previous Rx's Medication Instructions Recorded Albuterol Inhaler [Ventolin Hfa 2 puff INHALATION RT-Q2H PRN each 04/01/24 Inhaler] Apixaban [Eliquis] 5 mg PO BID tab 04/01/24 Famotidine [Pepcid] 20 mg PO BID tab 04/01/24 Furosemide [Lasix] 40 mg PO DAILY tab 04/01/24 Pantoprazole [Protonix] 40 mg PO AC-BRKFST tab 04/01/24 predniSONE See Taper PO DIRECTED #30 tab 04/01/24 Allergies Allergy/AdvReac Type Severity Reaction Status Date / Time No Known Allergies Allergy Verified 03/22/24 10:12 Review of Systems ROS Statement: Those systems with pertinent positive or pertinent negative responses have been documented in the HPI. ROS Other: All systems not noted in ROS Statement are negative. Constitutional: Denies: fever, chills, weakness Respiratory: Reports: dyspnea. Denies: cough, wheezes, hemoptysis Cardiovascular: Denies: chest pain, palpitations, orthopnea, edema, syncope Gastrointestinal: Denies: abdominal pain, vomiting, diarrhea Genitourinary: Denies: dysuria, hematuria Musculoskeletal: Denies: back pain Skin: Denies: rash Neurological: Denies: headache, weakness, numbness Past Medical History Past Medical History: Hyperlipidemia, Hypertension, Pneumonia Additional Past Medical History / Comment(s): MURMUR WHEN YOUNGER, MILD URINARY INCONT-WEARS A PAD. History of Any Multi-Drug Resistant Organisms: None Reported Past Surgical History: Bladder Surgery, Cholecystectomy Additional Past Surgical History / Comment(s): bladder suspension ,EGD Past Anesthesia/Blood Transfusion Reactions: No Reported Reaction Additional Past Anesthesia/Blood Transfusion Reaction / Comment(s): HAD BLOOD TR ANSFUSION AFTER CHILDBIRTH-NO REACTION Past Psychological History: No Psychological Hx Reported Past Alcohol Use History: None Reported Past Drug Use History: None Reported - Past Family History Mother Family Medical History: Cancer Father Family Medical History: Congestive Heart Failure (CHF) General Exam General appearance: alert, in distress Head exam: Present: atraumatic, normocephalic Eye exam: Present: normal appearance. Absent: scleral icterus, conjunctival injection ENT exam: Present: normal oropharynx Neck exam: Present: normal inspection Respiratory exam: Present: respiratory distress, wheezes. Absent: rales, rhonchi, stridor, chest wall tenderness, accessory muscle use, decreased breath sounds Cardiovascular Exam: Present: regular rate, normal rhythm, normal heart sounds. Absent: systolic murmur, diastolic murmur, rubs, gallop GI/Abdominal exam: Present: soft. Absent: distended, tenderness, guarding, rebound, rigid, mass Extremities exam: Present: normal inspection, normal capillary refill. Absent: pedal edema, calf tenderness Back exam: Present: normal inspection. Absent: CVA tenderness (R), CVA tenderness (L) Neurological exam: Present: alert Skin exam: Present: warm, dry, intact, normal color. Absent: rash Course Vital Signs 03/22/24 03/22/24 03/22/24 04:38 04:39 04:52 Temperature 98.0 F Pulse Rate 62 61 Respiratory 20 19 Rate Blood Pressure 148/79 144/52 O2 Sat by Pulse 99 99 Oximetry Fraction of 100 Inspired Oxygen (FIO2) 03/22/24 03/22/24 03/22/24 06:23 07:18 12:45 Temperature 97.7 F Pulse Rate 60 60 63 Respiratory 17 20 18 Rate Blood Pressure 141/48 134/51 135/60 O2 Sat by Pulse 100 96 98 Oximetry Fraction of Inspired Oxygen (FIO2) 03/22/24 03/22/24 03/22/24 17:02 21:01 22:56 Temperature Pulse Rate 67 56 L 58 L Respiratory 16 14 13 Rate Blood Pressure 143/66 129/49 123/59 O2 Sat by Pulse 98 96 92 L Oximetry Fraction of Inspired Oxygen (FIO2) 03/23/24 03/23/24 03/23/24 00:44 03:00 04:30 Temperature Pulse Rate 58 L 59 L 69 Respiratory 18 13 12 Rate Blood Pressure 126/58 126/51 135/47 O2 Sat by Pulse 95 92 L 95 Oximetry Fraction of Inspired Oxygen (FIO2) 03/23/24 03/23/24 03/23/24 06:23 06:26 07:44 Temperature 97.7 F 97.7 F Pulse Rate 66 71 Respiratory 12 12 Rate Blood Pressure 138/53 138/53 O2 Sat by Pulse 95 95 96 Oximetry Fraction of Inspired Oxygen (FIO2) 03/23/24 03/23/24 03/23/24 08:25 13:37 14:00 Temperature 97.2 F L Pulse Rate 75 63 Respiratory 18 20 Rate Blood Pressure 146/60 142/53 O2 Sat by Pulse 93 L 93 L 93 L Oximetry Fraction of Inspired Oxygen (FIO2) Medical Decision Making - Medical Decision Making The patient had chest x-ray that I interpreted as negative for acute infiltrate, pneumothorax. The patient had CT scan of the chest that I interpreted as positive for pulmonary embolism. Was pt. sent in by a medical professional or institution (, PA, WAVE SOLDER OFFBEARER, urgent care, hospital, or retirement...) When possible be specific @ -Yes sent from long-term care facility to have further evaluation Did you speak to anyone other than the patient for history (EMS, parent, family, police, friend...)? What history was obtained from this source @ -[No] Did you review nursing and triage notes (agree or disagree)? Why? @ -[I reviewed and agree with nursing and triage notes] Were old charts reviewed (outside hosp., previous admission, EMS record, old EKG, old radiological studies, urgent care reports/EKG's, retirement records)? Report findings @ -[Transfer records were reviewed] Differential Diagnosis (chest pain, altered mental status, abdominal pain women, abdominal pain men, vaginal bleeding, weakness, fever, dyspnea, syncope, headache, dizziness, GI bleed, back pain, seizure, CVA, palpatations, mental health, musculoskeletal)? @ -[Differential Dyspnea: Coronary syndrome, arrhythmia, tamponade, asthma, COPD, pulmonary embolism, pneumonia, pneumothorax, pulmonary effusion, anaphylaxis, diabetic ketoacidosis, flailed chest, pulmonary contusion, diaphragmatic rupture, anemia, neuromuscular, this is not meant to be an all-inclusive list. EKG interpreted by me (3pts min.). @ -[I interpreted as above] X-rays interpreted by me (1pt min.). @ -[I interpreted as above CT interpreted by me (1pt min.). @ -[I interpreted as above U/S interpreted by me (1pt. min.). @ -[None done] What testing was considered but not performed or refused? (CT, X-rays, U/S, lab s)? Why? @ -[None] What meds were considered but not given or refused? Why? @ -[None] Did you discuss the management of the patient with other professionals (professionals i.e. , PA, WAVE SOLDER OFFBEARER, lab, RT, psych nurse, clinical social worker, gluing machine operator electronic, teacher, light armored reconnaissance officer, upper caser)? Give summary @ -[Case discussed with admitting physician and treatment recommendations incorporated Was smoking cessation discussed for >3mins.? @ -[No] Was critical care preformed (if so, how long)? @ -[Yes, 35 minutes Were there social determinants of health that impacted care today? How? (Homelessness, low income, unemployed, alcoholism, drug addiction, transportation, low edu. Level, literacy, decrease access to med. care, fci, rehab)? @ -[No] Was there de-escalation of care discussed even if they declined (Discuss DNR or withdrawal of care, Hospice)? DNR status @ -[No] What co-morbidities impacted this encounter? (DM, HTN, Smoking, COPD, CAD, Cancer, CVA, ARF, Chemo, Hep., AIDS, mental health diagnosis, sleep apnea, morbid obesity)? @ -[COPD.-Hypertension. Stroke. Was patient admitted / discharged? Hospital course, mention meds given and route, prescriptions, significant lab abnormalities, going to OR and other pertinent info. @ -[Patient is 68-year-old woman who is sent to have evaluation for dyspnea and low pulse oximetry readings. The patient does appear to have acute pulmonary embolism bilaterally. The patient is admitted and started on IV heparin and will have further pulmonology consultation, which is pending at the time of shift change. Undiagnosed new problem with uncertain prognosis? @ -[No] Drug Therapy requiring intensive monitoring for toxicity (Heparin, Nitro, Insulin, Cardizem)? @ -[IV heparin Were any procedures done? @ -[No] Diagnosis/symptom? @ -[Acute pulmonary embolism. Respiratory failure with hypoxemia Acute, or Chronic, or Acute on Chronic? @ -[Acute Uncomplicated (without systemic symptoms) or Complicated (systemic symptoms)? @ -[Complicated by hypoxemia Side effects of treatment? @ -[No] Exacerbation, Progression, or Severe Exacerbation? @ -[No] Poses a threat to life or bodily function? How? (Chest pain, USA, MD, pneumonia, PE, COPD, DKA, ARF, appy, cholecystitis, CVA, Diverticulitis, Homicidal, Suicidal, threat to staff... and all critical care pts) @ -[Yes - Lab Data Result diagrams: 03/29/24 07:59 03/29/24 07:59 Lab Results 03/22/24 03/22/24 03/22/24 Range/Units 04:46 04:46 04:46 WBC 8.2 (3.8-10.6) k/uL RBC 4.67 (3.80-5.40) m/uL Hgb 14.3 (11.4-16.0) gm/dL Hct 43.6 (34.0-46.0) % MCV 93.3 (80.0-100.0) fL MCH 30.7 (25.0-35.0) pg MCHC 32.9 (31.0-37.0) g/dL RDW 14.7 (11.5-15.5) % Plt Count 112 L (150-450) k/uL MPV 8.9 Neutrophils % 66 % Lymphocytes % 19 % Monocytes % 8 % Eosinophils % 5 % Basophils % 0 % Neutrophils # 5.5 (1.3-7.7) k/uL Lymphocytes # 1.6 (1.0-4.8) k/uL Monocytes # 0.7 (0-1.0) k/uL Eosinophils # 0.4 (0-0.7) k/uL Basophils # 0.0 (0-0.2) k/uL PT 11.3 (10.0-12.5) sec INR 1.0 (<1.2) APTT 22.1 (22.0-30.0) sec D-Dimer >35.00 H (<0.60) mg/L FEU Sodium 139 (137-145) mmol/L Potassium 5.1 (3.5-5.1) mmol/L Chloride 108 H (98-107) mmol/L Carbon Dioxide 24 (22-30) mmol/L Anion Gap 7 mmol/L BUN 41 H (7-17) mg/dL Creatinine 1.21 H (0.52-1.04) mg/dL Est GFR (CKD-EPI)AfAm 54 (>60 ml/min/1.73 sqM) Est GFR (CKD-EPI)NonAf 47 (>60 ml/min/1.73 sqM) Glucose 118 H (74-99) mg/dL Plasma Lactic Acid Adam (0.7-2.0) mmol/L Calcium 10.0 (8.4-10.2) mg/dL Total Bilirubin 0.7 (0.2-1.3) mg/dL AST 47 H (14-36) U/L ALT 90 H (4-34) U/L Alkaline Phosphatase 102 (38-126) U/L Troponin I (0.000-0.034) ng/mL NT-Pro-B Natriuret Pep 94 pg/mL Total Protein 7.4 (6.3-8.2) g/dL Albumin 3.9 (3.5-5.0) g/dL 03/22/24 03/22/24 Range/Units 04:46 04:46 WBC (3.8-10.6) k/uL RBC (3.80-5.40) m/uL Hgb (11.4-16.0) gm/dL Hct (34.0-46.0) % MCV (80.0-100.0) fL MCH (25.0-35.0) pg MCHC (31.0-37.0) g/dL RDW (11.5-15.5) % Plt Count (150-450) k/uL MPV Neutrophils % % Lymphocytes % % Monocytes % % Eosinophils % % Basophils % % Neutrophils # (1.3-7.7) k/uL Lymphocytes # (1.0-4.8) k/uL Monocytes # (0-1.0) k/uL Eosinophils # (0-0.7) k/uL Basophils # (0-0.2) k/uL PT (10.0-12.5) sec INR (<1.2) APTT (22.0-30.0) sec D-Dimer (<0.60) mg/L FEU Sodium (137-145) mmol/L Potassium (3.5-5.1) mmol/L Chloride (98-107) mmol/L Carbon Dioxide (22-30) mmol/L Anion Gap mmol/L BUN (7-17) mg/dL Creatinine (0.52-1.04) mg/dL Est GFR (CKD-EPI)AfAm (>60 ml/min/1.73 sqM) Est GFR (CKD-EPI)NonAf (>60 ml/min/1.73 sqM) Glucose (74-99) mg/dL Plasma Lactic Acid Adam 1.3 (0.7-2.0) mmol/L Calcium (8.4-10.2) mg/dL Total Bilirubin (0.2-1.3) mg/dL AST (14-36) U/L ALT (4-34) U/L Alkaline Phosphatase (38-126) U/L Troponin I <0.012 (0.000-0.034) ng/mL NT-Pro-B Natriuret Pep pg/mL Total Protein (6.3-8.2) g/dL Albumin (3.5-5.0) g/dL - EKG Data -: EKG Interpreted by Me EKG shows normal: sinus rhythm, axis (Normal), intervals (Normal), QRS complexes (Normal), ST-T waves (Normal) Rate: normal (Rate 61 bpm) Disposition Clinical Impression: COVID-19 virus infection Disposition: ADMITTED IP TO THIS [facility] Condition: Stable
[2024-03-22 05:06] LABS: Basophils % (A) 0 %; Eosinophils # (A) 0.4 k/uL (0-0.7); Eosinophils % (A) 5 %; HCT 43.6 % (34.0-46.0); HGB 14.3 gm/dL (11.4-16.0); Lymphocytes # (A) 1.6 k/uL (1.0-4.8); Lymphocytes % (A) 19 %; MCH 30.7 pg (25.0-35.0); MCHC 32.9 g/dL (31.0-37.0); MCV 93.3 fL (80.0-100.0); Mean Platelet Volume 8.9; Monocytes # (A) 0.7 k/uL (0-1.0); Monocytes % (A) 8 %; Neutrophils # (A) 5.5 k/uL (1.3-7.7); Neutrophils % (A) 66 %; Platelet Count 112 k/uL (150-450); RBC 4.67 m/uL (3.80-5.40); RDW 14.7 % (11.5-15.5); WBC 8.2 k/uL (3.8-10.6)
[2024-03-22 05:30] LABS: ALT 90 U/L (4-34); AST 47 U/L (14-36); African American GFR (CKD) 54 (>60 ml/min/1.73 sqM); Albumin 3.9 g/dL (3.5-5.0); Alkaline Phosphatase 102 U/L (38-126); Anion Gap 7 mmol/L; Blood Urea Nitrogen 41 mg/dL (7-17); Carbon Dioxide 24 mmol/L (22-30); Chloride 108 mmol/L (98-107); Glucose 118 mg/dL (74-99); Non-African American GFR(CKD) 47 (>60 ml/min/1.73 sqM); Potassium 5.1 mmol/L (3.5-5.1); Sodium 139 mmol/L (137-145); Total Bilirubin 0.7 mg/dL (0.2-1.3); Total Protein 7.4 g/dL (6.3-8.2)
[2024-03-22 05:37] LABS: NT-Pro-B-Type Natriuretic Pept 94 pg/mL
[2024-03-22 05:46] LABS: Partial Thromboplastin Time 22.1 sec (22.0-30.0); Prothrombin Time 11.3 sec (10.0-12.5)
--- NOTE | 2024-03-22 06:37 | XR ---
EXAM: XR Chest, 2 Views CLINICAL HISTORY: ITS.REASON XR Reason: difficulty breathing TECHNIQUE: Frontal and lateral views of the chest. COMPARISON: CT chest from 09/07/16. Chest radiograph from 02/19/24 FINDINGS: Lungs: Unremarkable. No consolidation. Pleural space: Unremarkable. Mediastinum: Unremarkable. Normal mediastinal contour. Bones/joints: No acute findings. IMPRESSION: No acute findings.
[2024-03-22] MEDS ORDERED: ONDANSETRON 4 MG/2 ML VIAL IVP PRN (07:45)
[2024-03-22] MEDS ORDERED: NALOXONE 0.4 MG/ML 1 ML VIAL IV PRN (07:45)
[2024-03-22] MEDS ORDERED: MAG HYDROX/AL HYDROX/SIMETH 30 ML CUP PO PRN (07:45)
--- NOTE | 2024-03-22 07:45 | CT ---
EXAMINATION TYPE: CT chest angio for PE DATE OF EXAM: 03/22/2024 COMPARISON: Radiograph 03/22/[address] 01/09/2017 HISTORY: 68-year-old female Pt presents to ED from [facility], via EMS for SOB. Elevated d-dimer >35.0 TECHNIQUE: Contiguous axial scanning of the chest performed with IV Contrast, patient injected with 8 0 mL of Isovue 370. Coronal and sagittal MIP reconstructions performed. CT DLP: 792.2 mGycm Automated exposure control for dose reduction was used. FINDINGS: Heart upper limits of normal size without pericardial effusion. No flattening of the interventricular septum or reflux of contrast into hepatic veins. Aorta normal caliber with mild atherosclerotic arch calcifications. [id number] narrowing at the origin of the left subclavian artery and also at the origin of the left vertebral artery. Large caliber to the main right and left pulmonary arteries measuring up to 2.8 cm. Exam is positive for pulmonary emboli to right upper lobar and more distal branches. Also left upper lobar, lingular, and more distal branches. Also, within the RML. No thoracic adenopathy by CT size criteria. Moderate to advanced emphysema. Patchy bibasilar dependent opacities likely reflecting prominent area s of atelectasis. Extensive motion artifact is present limiting the evaluation. No pleural effusion. Visualized upper abdomen is limited by motion. It shows cholecystectomy clips and a suspected small 7 mm right renal cortical cyst. Accentuated thoracic kyphosis. IMPRESSION: 1. EXAM POSITIVE FOR PULMONARY EMBOLI WITH OVERALL MODERATE BURDEN LOCALIZED TO THE BILATERAL UPPER L OBES WELL THE RIGHT MIDDLE LOBE. NO CT EVIDENCE FOR RIGHT STRAIGHTENING AT THIS TIME. 2. MODERATE TO ADVANCED EMPHYSEMA. DEPENDENT OPACITIES PROBABLY REPRESENTING PROMINENT DEPENDENT ATEL ECTASIS. Called to Dr. Pérez in the ER at 7:40 AM.
[2024-03-22] MEDS: HEPARIN SODIUM 1,000 UN/ML (10ML VL) IV ONE (08:07)
[2024-03-22] MEDS: HEPARIN SOD,PORK IN 0.45% NACL 25,000 UNIT in 0.45% NACL 1 250ML.BAG IV SCH (08:08)
[2024-03-22] MEDS: SODIUM CHLORIDE 0.9% 1,000 ML IV SCH (08:09)
[2024-03-22] MEDS: FAMOTIDINE 20 MG TAB PO SCH (08:19)
--- NOTE | 2024-03-22 12:46 | P.HPIM ---
History of Present Illness H&P Date: 03/22/24 History of Presenting Illness: Patient is a pleasant 68-year-old female with a past medical history of hypertension, hyperlipidemia, stage IIIa CKD and recent CVA. She is currently residing at [facility] undergoing rehab from recent stroke with deficits of right-sided weakness and expressive aphasia. While undergoing rehab, patient developed mild shortness of breath and cough and was diagnosed with COVID-19 infection on 03/18/2024. Patient reports her shortness of breath significantly worsened and nursing staff at [facility] called EMS to transport her to the emergency department. Per documentation in chart patient was found by EMS in respiratory distress on 2 L O2 with SpO2 of 80% requiring placement on nonrebreather mask at 15 L to maintain oxygen saturation in the 90s. Upon arrival to the emergency department, patient underwent evaluation. Vital signs upon arrival show blood pressure 148/79, heart rate 62, respiratory rate 20, temp 98.0 F, and SpO2 of 99% on 15 L supplemental oxygen. EKG was completed showing normal sinus rhythm at 61 bpm with no noted T wave or ST abnormalities showing no signs of acute ischemia upon personal review and interpretation. Chest x-ray completed negative for acute cardiopulmonary process. Labs were completed and reviewed. CBC showing thrombocytopenia with platelet count of 112. BMP revealing mild hyperchloremia with chloride of 108 and consistent with known stage IIIa CKD with BUN of 41, creatinine of 1.21, GFR 47. Blood glucose was 118. Troponin was negative at less than 0.012. proBNP 94. D-dimer was elevated at greater than 35. CTA chest completed showing pulmonary emboli with overall moderate burden localized to the bilateral upper lobes as well as right middle lobe with no CT evidence for right heart strain at this time along with moderate to advanced emphysema and dependent opacities reported to be likely representing prominent dependent atelectasis. Patient was started on high intensity heparin infusion for treatment of PE. She was admitted under [facility] with consultation to pulmonology. Upon evaluation at bedside, heparin was infusing. Patient now on high flow nasal cannula at 10 L/min. She reports breathing has improved since arrival to our facility. Patient was updated on findings and diagnoses received in the emergency department. All questions answered at this time. Patient denies having any headache, lightheadedness, dizziness, palpitations, nausea, vomiting, or experiencing any worsening or changes in numbness/tingling/weakness. Patient reports total flaccidity of right upper and right lower extremity from previous stroke and mild difficulties with speech. She also states chronic urinary incontinence. Review of systems: Pertinent positives and negatives as discussed in HPI, a complete review of systems was performed and all other systems are negative. Physical exam: Vital signs reviewed and stable. General: Nontoxic, no distress and appears stated age. Derm: Skin warm and dry, normal coloration for ethnicity. Head: Atraumatic, normocephalic and symmetric. Eyes: EOMs intact, no lid lag, and anicteric sclera Mouth: no lip lesions, mucus membranes moist Cardiovascular: regular rate and rhythm with normal S1S2, no murmur, positive posterior tibial pulses bilaterally, and cap refill < 2 seconds. Lungs: Respirations even, regular, and unlabored on 10 L high flow nasal cannula.. Lungs diminished, however no rhonchi, no rales, or wheezing noted. No accessory muscle usage. Abdominal: soft, nontender to palpation, no guarding, no appreciable organomegaly Ext: No gross muscle atrophy, no edema, no contractures. Right upper and lower extremity flaccidity. Neuro: Speech clear, face symmetrical and CN II-XII grossly intact with no noted focal neuro deficits Psych: Alert and oriented to person, place, time, and situation. Appropriate and pleasant affect. Assessment and Plan of Care: Acute respiratory failure with hypoxia Bilateral pulmonary emboli COVID-19 infection History of recent CVA with right-sided deficits Hypertension Hyperlipidemia -Oxygenation to be administered and titrated as needed to maintain SPO2 equal to or greater than 92% -Continuation of high intensity heparin infusion with repeat PTT every 6 hours to monitor for goal therapeutic range of 44 to 79 seconds. -Pulmonology consulted, appreciate recommendations -Telemetry monitoring. -Order placed for echocardiogram to rule out right heart strain. -Monitor pulse-oximetry -Duonebs scheduled 4 times daily and as needed for SOB and/or wheezing -Incentive Spirometry -Steroids: Solu-Medrol 40 mg IVP every 8 hours. -Patient to continue daily medication regimen with aspirin 81 mg daily, amiodarone 200 mg twice daily, amlodipine 5 mg twice daily, carvedilol 25 mg twice daily, and losartan 100 mg daily. Data and imaging reviewed: As stated above in HPI The patient is admitted with an anticipated greater than 2 midnight stay for evaluation of acute respiratory failure with hypoxia secondary to bilateral pulmonary emboli and current COVID-19 infection CODE STATUS: Full code DVT prophylaxis: Heparin Anticipated discharge date: Clinical course to determine Anticipated discharge place: Clinical course to determine Patient was seen independently by Nurse Practitioner. This document was prepared using [employer] dictation software. Please allow for errors in work checker while rare they do occur. Pan Argueta CONSUMER INSIGHT MANAGER rendered care for this patient independently, reviewed the findings and plan as documented in the note above. I did not physically speak with or examine the patient on this date. Past Medical History Past Medical History: Hyperlipidemia, Hypertension, Pneumonia Additional Past Medical History / Comment(s): MURMUR WHEN YOUNGER, MILD URINARY INCONT-WEARS A PAD. History of Any Multi-Drug Resistant Organisms: None Reported Past Surgical History: Bladder Surgery, Cholecystectomy Additional Past Surgical History / Comment(s): bladder suspension ,EGD Past Anesthesia/Blood Transfusion Reactions: No Reported Reaction Additional Past Anesthesia/Blood Transfusion Reaction / Comment(s): HAD BLOOD TRANSFUSION AFTER CHILDBIRTH-NO REACTION Past Psychological History: No Psychological Hx Reported Past Alcohol Use History: None Reported Past Drug Use History: None Reported - Past Family History Mother Family Medical History: Cancer Father Family Medical History: Congestive Heart Failure (CHF) Medications and Allergies Home Medications Medication Instructions Recorded Confirmed Type Acetaminophen [Tylenol Arthritis] 650 mg PO Q4H PRN 03/22/24 03/22/24 History Amiodarone [Cordarone] 200 mg PO BID@0800,1700 03/22/24 03/22/24 History Ascorbic Acid [Vitamin C] 1,000 mg PO DAILY@0803/22/24 03/22/24 History Aspirin 81 mg PO DAILY@79903/22/24 03/22/24 History Cholecalciferol (Vitamin D3) 50 mcg PO DAILY@0800 03/22/24 03/22/24 History [Vitamin D3 (50 Mcg = 2000 Iu)] Heparin Sodium,Porcine [Heparin 5,000 unit SQ TID@0600,1400,2200 03/22/24 03/22/24 History Sodium] Losartan Potassium [Cozaar] 100 mg PO DAILY@0800 03/22/24 03/22/24 History Magic Cup 1 dose PO BID@1200,1700 03/22/24 03/22/24 History Magnesium Hydroxide [Milk of 7,200 mg PO Q48H PRN 03/22/24 03/22/24 History Magnesia Concentrate] Na Phos,M-B/Na Phos,Di-Ba [Fleet 133 ml RECTAL DAILY PRN 03/22/24 03/22/24 History Adult] Zinc Sulfate [Orazinc] 220 mg PO DAILY@0800 03/22/24 03/22/24 History amLODIPine [Norvasc] 5 mg PO BID@0800,1700 03/22/24 03/22/24 History bisacodyL [Dulcolax] 10 mg RECTAL DAILY PRN 03/22/24 03/22/24 History carvediloL [Coreg] 25 mg PO BID@0800,1700 03/22/24 03/22/24 History polyethylene glycoL 3350 [Miralax] 17 gm PO DAILY@0800 03/22/24 03/22/24 History Allergies Allergy/AdvReac Type Severity Reaction Status Date / Time No Known Allergies Allergy Verified 03/22/24 10:12 Physical Exam Vitals: Vital Signs Temp Pulse Resp BP Pulse Ox FiO2 03/22/24 07:18 60 20 134/51 96 03/22/24 06:23 97.7 F 60 17 141/48 100 03/22/24 04:52 61 19 144/52 99 03/22/24 04:39 100 03/22/24 04:38 98.0 F 62 20 148/79 99 Intake and Output 03/21/24 03/22/24 03/22/24 22:59 06:59 14:59 Other: Weight 113.398 kg Results CBC & Chem 7: 03/23/24 05:20 03/22/24 04:46 Labs: Abnormal Lab Results - Last 24 Hours (Table) 03/22/24 03/22/24 03/22/24 Range/Units 04:46 04:46 04:46 Plt Count 112 L (150-450) k/uL D-Dimer >35.00 H (<0.60) mg/L FEU Chloride 108 H (98-107) mmol/L BUN 41 H (7-17) mg/dL Creatinine 1.21 H (0.52-1.04) mg/dL Glucose 118 H (74-99) mg/dL AST 47 H (14-36) U/L ALT 90 H (4-34) U/L
--- NOTE | 2024-03-22 14:14 | P.CNPUL ---
History of Present Illness Consult date: 03/22/24 Requesting physician: Farzad Deluca Reason for consult: dyspnea, hypoxemia, pulmonary embolism, abnormal CXR/CT, other Chief complaint: Shortness of breath. History of present illness: Pulmonary consult dated March 22, 2024. 68-year-old female brought in by EMS, [facility]. The patient apparently developed shortness of breath, and for that reason was sent in to be evaluated. [facility], having recently had a stroke, with right-sided weakness. The patient apparently developed marked shortness of breath, appeared dusky, with blue lips, and saturations in the upper 70s. The patient was placed on oxygen, and EMS was called, the patient w as transported here for further evaluation. She was seen in ER, room 3. Evaluation revealed evidence of bilateral pulmonary emboli. The patient recently tested positive for coronavirus infection, at the penitentiary, on March 20. Currently she is on IV heparin, saline at 75 cc an hour, and high flow nasal O2 at 10 L. She has a history of hyperlipidemia, hypertension, CVA, and recent coronavirus infection. Current labs include a white count 8.2, hemoglobin 14.3, hematocrit 43.6, and a platelet count of 112,000. D-dimer was greater than 35. Sodium 139, potassium 5.1, chlorides 108, CO2 24, BUN 41, and creatinine 1.21. Glucose was 118. AST 47. ALT 90. Troponin was less than 0.012. Albumin was 3.9. N-terminal proBNP was normal. Chest x-ray was unremarkable. CT angiogram was positive for bilateral pulmonary emboli, with moderate burden, localized to the bilateral upper lobes, as well as in the right middle lobe. There is no evidence on CT, of right heart strain. In addition, there was moderate to advanced emphysematous changes, with some basilar atelectasis. Review of Systems REVIEW OF SYSTEMS: CONSTITUTIONAL: [Negative.] NEUROLOGIC: [ Negative.] HEENT: [ Negative.] CARDIAC: [Negative.] PULMONARY: Shortness of breath, and low saturations. GI: [Negative.] : [Negative.] RHEUMATOLOGIC: [ Negative.] IMMUNOLOGIC: [ Negative.] ENDOCRINE: [Negative. ] DERMATOLOGIC: [Negative.] Past Medical History Past Medical History: Hyperlipidemia, Hypertension, Pneumonia Additional Past Medical History / Comment(s): MURMUR WHEN YOUNGER, MILD URINARY INCONT-WEARS A PAD. History of Any Multi-Drug Resistant Organisms: None Reported Past Surgical History: Bladder Surgery, Cholecystectomy Additional Past Surgical History / Comment(s): bladder suspension ,EGD Past Anesthesia/Blood Transfusion Reactions: No Reported Reaction Additional Past Anesthesia/Blood Transfusion Reaction / Comment(s): HAD BLOOD TRANSFUSION AFTER CHILDBIRTH-NO REACTION Past Psychological History: No Psychological Hx Reported Past Alcohol Use History: None Reported Past Drug Use History: None Reported - Past Family History Mother Family Medical History: Cancer Father Family Medical History: Congestive Heart Failure (CHF) Medications and Allergies Home Medications Medication Instructions Recorded Confirmed Type Acetaminophen [Tylenol Arthritis] 650 mg PO Q4H PRN 03/22/24 03/22/24 History Amiodarone [Cordarone] 200 mg PO BID@0800,1700 03/22/24 03/22/24 History Ascorbic Acid [Vitamin C] 1,000 mg PO DAILY@0800 03/22/24 03/22/24 History Aspirin 81 mg PO DAILY@0803/22/24 03/22/24 History Cholecalciferol (Vitamin D3) 50 mcg PO DAILY@0800 03/22/24 03/22/24 History [Vitamin D3 (50 Mcg = 2000 Iu)] Heparin Sodium,Porcine [Heparin 5,000 unit SQ TID@0600,1400,2200 03/22/24 03/22/24 History Sodium] Losartan Potassium [Cozaar] 100 mg PO DAILY@0800 03/22/24 03/22/24 History Magic Cup 1 dose PO BID@1200,1700 03/22/24 03/22/24 History Magnesium Hydroxide [Milk of 7,200 mg PO Q48H PRN 03/22/24 03/22/24 History Magnesia Concentrate] Na Phos,M-B/Na Phos,Di-Ba [Fleet 133 ml RECTAL DAILY PRN 03/22/24 03/22/24 History Adult] Zinc Sulfate [Orazinc] 220 mg PO DAILY@0800 03/22/24 03/22/24 History amLODIPine [Norvasc] 5 mg PO BID@0800,1700 03/22/24 03/22/24 History bisacodyL [Dulcolax] 10 mg RECTAL DAILY PRN 03/22/24 03/22/24 History carvediloL [Coreg] 25 mg PO BID@0800,1700 03/22/24 03/22/24 History polyethylene glycoL 3350 [Miralax] 17 gm PO DAILY@0800 03/22/24 03/22/24 History Allergies Allergy/AdvReac Type Severity Reaction Status Date / Time No Known Allergies Allergy Verified 03/22/24 10:12 Physical Exam Osteopathic Statement: *. No significant issues noted on an osteopathic structural exam other than those noted in the History and Physical/Consult. Vitals: Vital Signs Temp Pulse Resp BP Pulse Ox FiO2 03/22/24 12:45 63 18 135/60 98 03/22/24 07:18 60 20 134/51 96 03/22/24 06:23 97.7 F 60 17 141/48 100 03/22/24 04:52 61 19 144/52 99 03/22/24 04:39 100 03/22/24 04:38 98.0 F 62 20 148/79 99 Intake and Output 03/21/24 03/22/24 03/22/24 22:59 06:59 14:59 Other: Weight 113.398 kg No acute distress, oriented 3. No acute distress. Currently on 10 L high flow oxygen. The patient is a very poor historian. HEENT examination is grossly unremarkable. Mucous membranes are moist. No oral lesions. Lips are blue. Neck supple. Full range of motion. No adenopathy thyromegaly or neck vein distention. Cardiovascular examination reveals regular rhythm rate. S1-S2 normal. No S3 or S4. No discernible murmur noted. Heart rate 63 bpm. Heart sounds are distant. Lungs reveal clear breath sounds. Breath sounds are equal bilaterally. No adventitious lung sounds including wheezes rhonchi or crackles. Saturations are 98% on 10 L high flow nasal cannula. Abdomen soft bowel sounds are heard. No masses or tenderness. Extremities are intact. No cyanosis clubbing or edema. Skin is without rash or lesion. Neurologic examination is brief but nonfocal. Results - Laboratory Findings CBC and BMP: 03/22/24 04:46 03/22/24 04:46 PT/INR, D-dimer PT 11.3 sec (10.0-12.5) 03/22/24 04:46 INR 1.0 (<1.2) 03/22/24 04:46 D-Dimer >35.00 mg/L FEU (<0.60) H 03/22/24 04:46 Abnormal lab findings: Abnormal Labs 03/22/24 03/22/24 03/22/24 04:46 04:46 04:46 Plt Count 112 L D-Dimer >35.00 H Chloride 108 H BUN 41 H Creatinine 1.21 H Glucose 118 H AST 47 H ALT 90 H - Diagnostic Findings Chest x-ray: image reviewed CT scan - chest: image reviewed Assessment and Plan Assessment: Acute hypoxemic respiratory failure, secondary to bilateral pulmonary emboli. History of recent CVA with right-sided weakness. History of hypertension. History of hyperlipidemia. Plan: Plan dated March 22, 2024. The patient likely had a provoked pulmonary embolism, secondary to being sedentary, from her recent CVA, and right-sided weakness. Patient has not been moving around at all. Labs, x-rays, medications are reviewed. The patient is currently on IV heparin, via weight-based protocol, saline at 75 cc an hour, and oxygen on high flow nasal cannula 10 L. The patient recently also was apparently positive for coronavirus infection at the [facility], on March 20, which may have contributed to her developing pulmonary embolism. We will continue to follow and make recommendations along the way. Prognosis is certainly guarded. No additional recommendations. Once the patient is a bit more stable, she can be started on a factor Xa inhibitor, i.e. Xarelto or Eliquis. Time with Patient: Greater than 30
[2024-03-22] MEDS ORDERED: bisacodyL 10 MG SUPP RECTAL PRN (18:35)
[2024-03-22] MEDS ORDERED: IPRATROPIUM-ALBUTEROL 3 ML NEB INHALATION PRN (18:37)
[2024-03-22] MEDS: AMIODARONE 200 MG TAB PO SCH (19:35)
[2024-03-22] MEDS: amLODIPine 5 MG TAB PO SCH (19:35)
[2024-03-22] MEDS: carvediloL 12.5 MG TAB PO SCH (19:35)
[2024-03-22] MEDS: methylPREDNISolone SOD SUCCI 40 MG/ML 1 ML VIAL IV SCH (19:35)
[2024-03-22] MEDS ORDERED: ALBUTEROL HFA INHALER INHALATION PRN (20:56)
[2024-03-22] MEDS ORDERED: METOPROLOL SUCCINATE (ER) 50 MG TAB.ER.24H PO SCH (21:00)
[2024-03-22] MEDS ORDERED: ATORVASTATIN 20 MG TAB PO SCH (21:00)
[2024-03-22] MEDS: ALBUTEROL HFA INHALER INHALATION SCH (21:29)
[2024-03-22] MEDS: IPRATROPIUM-ALBUTEROL 3 ML NEB INHALATION SCH (21:36)
[2024-03-23 06:01] LABS: Basophils % (A) 0 %; Eosinophils % (A) 0 %; HCT 45.6 % (34.0-46.0); HGB 13.8 gm/dL (11.4-16.0); Hypochromasia Slight; Lymphocytes # (A) 0.6 k/uL (1.0-4.8); Lymphocytes % (A) 8 %; MCH 28.9 pg (25.0-35.0); MCHC 30.2 g/dL (31.0-37.0); MCV 95.8 fL (80.0-100.0); Mean Platelet Volume 8.4; Monocytes # (A) 0.1 k/uL (0-1.0); Monocytes % (A) 1 %; Neutrophils % (A) 89 %; Platelet Count 105 k/uL (150-450); RBC 4.77 m/uL (3.80-5.40); RDW 14.2 % (11.5-15.5); WBC 6.7 k/uL (3.8-10.6)
[2024-03-23] MEDS: polyethylene glycoL 3350 17 GM POWD.PACK PO SCH (08:28)
[2024-03-23] MEDS: ASCORBIC ACID 500 MG TAB PO SCH (08:29)
[2024-03-23] MEDS: CHOLECALCIFEROL 25 MCG (1000 IU) TABLET PO SCH (08:30)
[2024-03-23] MEDS: ASPIRIN 81 MG PO SCH (08:30)
[2024-03-23] MEDS: LOSARTAN 50 MG TAB PO SCH (08:31)
[2024-03-23] MEDS: ZINC SULFATE 220 MG CAP PO SCH (08:31)
--- NOTE | 2024-03-23 09:45 | CA ---
Transthoracic Echo Report Name: Emiliana Miles Age: 68 Gender: F : 1955 Exam Date: 03/22/2024 13:07 Exam Location: [facility] Ht (in): 70 Wt (lb): 250 Ordering Physician: Pan Argueta Attending/Referring Phys: Rigging Up Man Re Napier RDCS Procedure CPT: Indications: PE r/o R heart strain conc for PFO w/ recentCVA Cardiac Hx: Technical Quality: Very technically difficult study Contrast 1: Definity Total Dose (mL): 2 Contrast 2: Total Dose (mL): MEASUREMENTS (Male / Female) Normal Values 2D ECHO LVOT Diameter 2.3 cm LA Volume 80.2 cm??? 18 - 58 / 22 - 52 cm??? LA Volume Index 33.3 cm???/m??? 16 - 28 cm???/m??? DOPPLER AV Peak Velocity 148.6 cm/s AV Peak Gradient 8.8 mmHg AV Mean Velocity 98.5 cm/s AV Mean Gradient 4.5 mmHg AV Velocity Time Integral 29.8 cm LVOT Peak Velocity 126.2 cm/s LVOT Peak Gradient 6.4 mmHg LVOT Velocity Time Integral 25.3 cm LVOT Stroke Volume 105.5 cm??? LVOT Stroke Volume Index 46.0 ml/m??? LVOT Cardiac Index 2803.7 cm???/min???m??? AV Area Cont Eq vti 3.5 cm??? AV Area Cont Eq pk 3.5 cm??? MV Area PHT 2.8 cm??? Mitral E Point Velocity 71.3 cm/s Mitral A Point Velocity 86.7 cm/s Mitral E to A Ratio 0.8 MV Deceleration Time 274.1 ms FINDINGS Left Ventricle Left ventricular ejection fraction is estimated at 50-55 %. No obvious regional wall motion abnormalities. Right Ventricle Right ventricle not well visualized. Unable to estimate the right ventricular systolic pressure. Right Atrium Right atrium not well visualized. Left Atrium Mildly increased left atrial volume. Mildly increased left atrial area. Mitral Valve Structurally normal mitral valve. No mitral stenosis, regurgitation or prolapse. Aortic Valve Aortic valve not well visualized. No aortic valve stenosis or regurgitation. Tricuspid Valve Tricuspid valve not well visualized. No tricuspid stenosis, regurgitation or prolapse. Pulmonic Valve Pulmonic valve not well visualized. Pericardium No pericardial effusion. Aorta Aortic annulus normal. Ascending aorta not well visualized. CONCLUSIONS Normal LV function Right ventricle is not visualized well cannot comment on RV strain Please refer to CAT scan findings Previewed by: Dr. Bartolo Doty MD (Electronically Signed) Final Date: 23 March 2024 09:44
[2024-03-23] MEDS ORDERED: NON FORMULARY DRUG (Magic Cup 1 EACH Ml) PO SCH (12:00)
--- NOTE | 2024-03-23 13:40 | P.PN ---
Subjective Progress Note Date: 03/23/24 Principal diagnosis: Shortness of breath. Pulmonary consult dated March 22, 2024. 68-year-old female brought in by EMS, from a local skilled nursing. The patient apparently developed shortness of breath, and for that reason was sent in to be evaluated. She was in skilled nursing for rehabilitation, having recently had a stroke, with right-sided weakness. The patient apparently developed marked shortness of breath, appeared dusky, with blue lips, and saturations in the upper 70s. The patient was placed on oxygen, and EMS was called, the patient was transported here for further evaluation. She was seen in ER, room 3. Evaluation revealed evidence of bilateral pulmonary emboli. The patient recently tested positive for coronavirus infection, at the skilled nursing, on March 20. Currently she is on IV heparin, saline at 75 cc an hour, and high flow nasal O2 at 10 L. She has a history of hyperlipidemia, hypertension, CVA, and recent coronavirus infection. Current labs include a white count 8.2, hemoglobin 14.3, hematocrit 43.6, and a platelet count of 112,000. D-dimer was greater than 35. Sodium 139, potassium 5.1, chlorides 108, CO2 24, BUN 41, and creatinine 1.21. Glucose was 118. AST 47. ALT 90. Troponin was less than 0.012. Albumin was 3.9. N-terminal proBNP was normal. Chest x-ray was unremarkable. CT angiogram was positive for bilateral pulmonary emboli, with moderate burden, localized to the bilateral upper lobes, as well as in the right middle lobe. There is no evidence on CT, of right heart strain. In addition, there was moderate to advanced emphysematous changes, with some basilar atelectasis. Progress note dated March 23, 2024. The patient is seen today in ER 16, and she continues on 8 L high flow oxygen. She is receiving IV heparin. She did test positive for coronavirus, on March 19. The patient came from the skilled nursing. She is feeling better today, and feeling less short of breath. Current labs include a white count 6.7, hemoglobin 13.8, hematocrit 45.6, and a platelet count of 105,000. PTT is 84.3. Troponins were negative x 2. Objective - Vital Signs Vital signs: Vital Signs Temp 97.7 F 03/23/24 06:26 Pulse 75 04/28/24 08:25 Resp 18 03/23/24 08:25 BP 146/60 03/23/24 08:25 Pulse Ox 93 L 03/23/24 08:25 FiO2 100 03/22/24 04:39 Intake & Output 03/22/24 03/23/24 03/23/24 18:59 06:59 18:59 Intake Total 138.802 111.198 52.996 Balance 138.802 111.198 52.996 Intake: Intake, IV Titration 138.802 111.198 52.996 Amount Heparin Sod,Pork in 0.45% 138.802 111.198 52.996 NaCl 25,000 unit In 0.45 % NaCl 1 250ml.bag @ 18 UNITS/KG/HR 20.412 mls/hr IV .[id number] [facility] Rx#: [id number] - Exam No acute distress, oriented 3. Currently on 8 L high flow oxygen. No obvious respiratory distress. No conversational dyspnea. HEENT examination is grossly unremarkable. Mucous membranes are moist. No oral lesions. Neck supple. Full range of motion. No adenopathy thyromegaly or neck vein distention. Cardiovascular examination reveals regular rhythm rate. S1-S2 normal. No S3 or S4. No discernible murmur noted. Heart rate 75 bpm. Lungs reveal mild scattered rhonchi. Breath sounds equal bilaterally. No wheezes or crackles. Saturations are 96%, on 8 L high flow oxygen. Abdomen soft bowel sounds are heard. No masses or tenderness. Extremities are intact. No cyanosis clubbing or edema. Skin is without rash or lesion. Neurologic examination is brief but nonfocal. - Labs CBC & Chem 7: 03/23/24 05:20 03/22/24 04:46 Labs: Abnormal Lab Results - Last 24 Hours (Table) 03/22/24 03/22/24 03/23/24 Range/Units 13:12 22:35 05:20 MCHC 30.2 L (31.0-37.0) g/dL Plt Count 105 L (150-450) k/uL Lymphocytes # 0.6 L (1.0-4.8) k/uL APTT >200.0 H* >200.0 H* (22.0-30.0) sec 03/23/24 03/23/24 Range/Units 05:20 11:01 MCHC (31.0-37.0) g/dL Plt Count (150-450) k/uL Lymphocytes # (1.0-4.8) k/uL APTT 179.0 H* 84.3 H (22.0-30.0) sec Assessment and Plan Assessment: Acute hypoxemic respiratory failure, secondary to bilateral pulmonary emboli. History of recent CVA with right-sided weakness. History of hypertension. History of hyperlipidemia. Plan: Plan dated March 22, 2024. The patient likely had a provoked pulmonary embolism, secondary to being sede ntary, from her recent CVA, and right-sided weakness. Patient has not been moving around at all. Labs, x-rays, medications are reviewed. The patient is currently on IV heparin, via weight-based protocol, saline at 75 cc an hour, and oxygen on high flow nasal cannula 10 L. The patient recently also was apparently positive for coronavirus infection at the skilled nursing, on March 20, which may have contributed to her developing pulmonary embolism. We will continue to follow and make recommendations along the way. Prognosis is certainly guarded. No additional recommendations. Once the patient is a bit more stable, she can be started on a factor Xa inhibitor, i.e. Xarelto or Eliquis. Plan dated March 23, 2024. The patient is seen in the emergency department, room 16. She continues on IV heparin. She is getting oxygen by high flow nasal cannula at 8 L. She did test positive for coronavirus on March 19 at the skilled nursing. Labs, x-rays, and medications are reviewed. We will continue to follow the patient, and make recommendations along the way. The patient is feeling better, as mentioned above. Prognosis is certainly guarded in this patient. Time with Patient: Less than 30
--- NOTE | 2024-03-23 13:51 | P.PN ---
Subjective Progress Note Date: 03/23/24 Hospital Course: Patient is a pleasant 68-year-old female with a past medical history of hypertension, hyperlipidemia, stage IIIa CKD and recent CVA. She is currently residing at [facility] undergoing rehab from recent stroke with deficits of right-sided weakness and expressive aphasia. While undergoing rehab, patient developed mild shortness of breath and cough and was diagnosed with COVID-19 infection on 03/18/2024. Patient reports her shortness of breath significantly worsened and nursing staff at [facility] called EMS to transport her to the emergency department. Per documentation in chart patient was found by EMS in respiratory distress on 2 L O2 with SpO2 of 80% requiring placement on nonrebreather mask at 15 L to maintain oxygen saturation in the 90s. Upon arrival to the emergency department, patient underwent evaluation. Vital signs upon arrival show blood pressure 148/79, heart rate 62, respiratory rate 20, temp 98.0 F, and SpO2 of 99% on 15 L supplemental oxygen. EKG was completed showing normal sinus rhythm at 61 bpm with no noted T wave or ST abnormalities showing no signs of acute ischemia upon personal review and interpretation. Chest x-ray completed negative for acute cardiopulmonary process. Labs were com pleted and reviewed. CBC showing thrombocytopenia with platelet count of 112. BMP revealing mild hyperchloremia with chloride of 108 and consistent with known stage IIIa CKD with BUN of 41, creatinine of 1.21, GFR 47. Blood glucose was 118. Troponin was negative at less than 0.012. proBNP 94. D-dimer was elevated at greater than 35. CTA chest completed showing pulmonary emboli with overall moderate burden localized to the bilateral upper lobes as well as right middle lobe with no CT evidence for right heart strain at this time along with moderate to advanced emphysema and dependent opacities reported to be likely representing prominent dependent atelectasis. Patient was started on high intensity heparin infusion for treatment of PE. She was admitted under our services with consultation to pulmonology. Physical exam: Vital signs reviewed and stable. General: Nontoxic, no distress and appears stated age. Derm: Skin warm and dry, normal coloration for ethnicity. Head: Atraumatic, normocephalic and symmetric. Eyes: EOMs intact, no lid lag, and anicteric sclera Mouth: no lip lesions, mucus membranes moist Cardiovascular: regular rate and rhythm with normal S1S2, no murmur, positive posterior tibial pulses bilaterally, and cap refill < 2 seconds. Lungs: Respirations even, regular, and unlabored on 10 L high flow nasal cannul a.. Lungs diminished, however no rhonchi, no rales, or wheezing noted. No accessory muscle usage. Abdominal: soft, nontender to palpation, no guarding, no appreciable organomegaly Ext: No gross muscle atrophy, no edema, no contractures. Right upper and lower extremity flaccidity. Neuro: Speech clear, face symmetrical and CN II-XII grossly intact with no noted focal neuro deficits Psych: Alert and oriented to person, place, time, and situation. Appropriate and pleasant affect. Assessment and Plan of Care: Acute respiratory failure with hypoxia Bilateral pulmonary emboli COVID-19 infection History of recent CVA with right-sided deficits Hypertension Hyperlipidemia -Oxygenation to be administered and titrated as needed to maintain SPO2 equal to or greater than 92% -Continuation of high intensity heparin infusion with repeat PTT every 6 hours to monitor for goal therapeutic range of 44 to 79 seconds. -Pulmonology consulted, appreciate recommendations -Telemetry monitoring. -Order placed for echocardiogram to rule out right heart strain. -Monitor pulse-oximetry -Ventolin inhaler scheduled 4 times daily and as needed for SOB and/or wheezing -Incentive Spirometry -Steroids: Solu-Medrol 40 mg IVP every 8 hours. -Patient to continue daily medication regimen with aspirin 81 mg daily, amiodarone 200 mg twice daily, amlodipine 5 mg twice daily, carvedilol 25 mg twice daily, and losartan 100 mg daily. Data and imaging reviewed: Vital signs reviewed. Blood pressure 146/60, heart rate 75, respiratory rate 18, temp 97.7 F, and SpO2 of 93% on 8 L. Morning labs completed and reviewed. PTT slightly supratherapeutic at 84.3. CBC showing stable thrombocytopenia with platelet count of 105 otherwise normal findings. CODE STATUS: Full code DVT prophylaxis: Heparin Anticipated discharge date: Clinical course to determine Anticipated discharge place: Clinical course to determine Patient was seen independently by Nurse Practitioner. This document was prepared using [employer] dictation software. Please allow for errors in bow maker custom while rare they do occur. Pan Argueta NP rendered care for this patient independently, reviewed the findings and plan as documented in the note above. I did not physically speak with or examine the patient on this date. Objective - Vital Signs Vital signs: Vital Signs Temp 97.7 F 03/23/24 06:26 Pulse 71 03/23/24 06:26 Resp 12 03/23/24 06:26 BP 138/53 03/23/24 06:26 Pulse Ox 96 03/23/24 07:44 FiO2 100 03/22/24 04:39 Intake & Output 03/22/24 03/23/24 03/23/24 18:59 06:59 18:59 Intake Total 138.802 111.198 52.731 Balance 138.802 111.198 52.731 Intake: Intake, IV Titration 138.802 111.198 52.731 Amount Heparin Sod,Pork in 0.45% 138.802 111.198 52.731 NaCl 25,000 unit In 0.45 % NaCl 1 250ml.bag @ 18 UNITS/KG/HR 20.412 mls/hr IV .[id number] [facility] Rx#: [id number] - Labs CBC & Chem 7: 03/23/24 05:20 03/22/24 04:46 Labs: Abnormal Lab Results - Last 24 Hours (Table) 03/22/24 03/22/24 03/23/24 Range/Units 13:12 22:35 05:20 MCHC 30.2 L (31.0-37.0) g/dL Plt Count 105 L (150-450) k/uL Lymphocytes # 0.6 L (1.0-4.8) k/uL APTT >200.0 H* >200.0 H* (22.0-30.0) sec 03/23/24 Range/Units 05:20 MCHC (31.0-37.0) g/dL Plt Count (150-450) k/uL Lymphocytes # (1.0-4.8) k/uL APTT 179.0 H* (22.0-30.0) sec
[2024-03-24 07:06] LABS: HCT 39.6 % (34.0-46.0); HGB 12.6 gm/dL (11.4-16.0); MCH 30.2 pg (25.0-35.0); MCHC 31.8 g/dL (31.0-37.0); MCV 95.2 fL (80.0-100.0); Mean Platelet Volume 8.3; Platelet Count 131 k/uL (150-450); RBC 4.16 m/uL (3.80-5.40); RDW 14.4 % (11.5-15.5); WBC 11.2 k/uL (3.8-10.6)
[2024-03-24 07:49] LABS: ALT 74 U/L (4-34); AST 35 U/L (14-36); African American GFR (CKD) 72 (>60 ml/min/1.73 sqM); Albumin 3.3 g/dL (3.5-5.0); Alkaline Phosphatase 87 U/L (38-126); Anion Gap 7 mmol/L; Blood Urea Nitrogen 32 mg/dL (7-17); Calcium 9.5 mg/dL (8.4-10.2); Carbon Dioxide 21 mmol/L (22-30); Chloride 112 mmol/L (98-107); Glucose 158 mg/dL (74-99); Magnesium 1.9 mg/dL (1.6-2.3); Non-African American GFR(CKD) 63 (>60 ml/min/1.73 sqM); Potassium 4.9 mmol/L (3.5-5.1); Sodium 140 mmol/L (137-145); Total Bilirubin 0.4 mg/dL (0.2-1.3); Total Protein 6.3 g/dL (6.3-8.2)
--- NOTE | 2024-03-24 11:36 | P.PN ---
Subjective Progress Note Date: 03/24/24 Hospital Course: Patient is a pleasant 68-year-old female with a past medical history of hypertension, hyperlipidemia, stage IIIa CKD and recent CVA. She is currently residing at [facility] undergoing rehab from recent stroke with deficits of right-sided weakness and expressive aphasia. While undergoing rehab, patient developed mild shortness of breath and cough and was diagnosed with COVID-19 infection on 03/18/2024. Patient reports her shortness of breath significantly worsened and nursing staff at [facility] called EMS to transport her to the emergency department. Per documentation in chart patient was found by EMS in respiratory distress on 2 L O2 with SpO2 of 80% requiring placement on nonrebreather mask at 15 L to maintain oxygen saturation in the 90s. Upon arrival to the emergency department, patient underwent evaluation. Vital signs upon arrival show blood pressure 148/79, heart rate 62, respiratory rate 20, temp 98.0 F, and SpO2 of 99% on 15 L supplemental oxygen. EKG was completed showing normal sinus rhythm at 61 bpm with no noted T wave or ST abnormalities showing no signs of acute ischemia upon personal review and interpretation. Chest x-ray completed negative for acute cardiopulmonary process. Labs were com pleted and reviewed. CBC showing thrombocytopenia with platelet count of 112. BMP revealing mild hyperchloremia with chloride of 108 and consistent with known stage IIIa CKD with BUN of 41, creatinine of 1.21, GFR 47. Blood glucose was 118. Troponin was negative at less than 0.012. proBNP 94. D-dimer was elevated at greater than 35. CTA chest completed showing pulmonary emboli with overall moderate burden localized to the bilateral upper lobes as well as right middle lobe with no CT evidence for right heart strain at this time along with moderate to advanced emphysema and dependent opacities reported to be likely representing prominent dependent atelectasis. Patient was started on high intensity heparin infusion for treatment of PE. She was admitted under our services with consultation to pulmonology.Echocardiogram completed revealing an EF of 50 to 55%, right ventricle was not well-visualized on echocardiogram forklift technician recommending referring to CT scan findings showing no signs of RV strain. Physical exam: Patient seen and fully evaluated at the bedside this morning. Family member visiting at bedside. Patient remains on high flow nasal cannula. She reports continued weakness and shortness of breath this morning and overall just feeling poorly. She denies experiencing any pain or discomfort. Vital signs reviewed and stable. General: Nontoxic, no distress and appears stated age. Derm: Skin warm and dry, normal coloration for ethnicity. Head: Atraumatic, normocephalic and symmetric. Eyes: EOMs intact, no lid lag, and anicteric sclera Mouth: no lip lesions, mucus membranes moist Cardiovascular: regular rate and rhythm with normal S1S2, no murmur, positive posterior tibial pulses bilaterally, and cap refill < 2 seconds. Lungs: Respirations even, regular, and unlabored on high flow nasal cannula with FiO2 of 70%.. Lungs diminished, however no rhonchi, no rales, or wheezing noted. No accessory muscle usage. Abdominal: soft, nontender to palpation, no guarding, no appreciable organomegaly Ext: No gross muscle atrophy, no edema, no contractures. Right upper and lower extremity flaccidity. Neuro: Speech clear, face symmetrical and CN II-XII grossly intact with no noted focal neuro deficits Psych: Alert and oriented to person, place, time, and situation. Appropriate and pleasant affect. Assessment and Plan of Care: Acute respiratory failure with hypoxia Bilateral pulmonary emboli COVID-19 infection History of recent CVA with right-sided deficits Elevated liver enzymes Hypertension Hyperlipidemia -Oxygenation to be administered and titrated as needed to maintain SPO2 equal to or greater than 92% -Continuation of high intensity heparin infusion with repeat PTT every 6 hours to monitor for goal therapeutic range of 44 to 79 seconds. TTE currently therapeutic at 50.6. -Pulmonology following, reviewed documentation in chart. -Telemetry monitoring. -Echocardiogram completed revealing an EF of 50 to 55%, right ventricle was not well-visualized on echocardiogram forklift technician recommending referring to CT scan findings showing no signs of RV strain. -Monitor pulse-oximetry -Ventolin inhaler scheduled 4 times daily and as needed for SOB and/or wheezing -Incentive Spirometry -Steroids: Solu-Medrol 40 mg IVP every 8 hours. -Patient to continue daily medication regimen with aspirin 81 mg daily, amiodarone 200 mg twice daily, amlodipine 5 mg twice daily, carvedilol 25 mg twice daily, and losartan 100 mg daily. Acute kidney injury, resolved -Renal function initially showing BUN of 41, creatinine 1.21, GFR of 47. This is resolved with current BUN of 32, creatinine 0.95, and GFR of 63. Data and imaging reviewed: Vital signs reviewed. Blood pressure 137/66, heart rate 63, respiratory rate 19, temp 98.1 F, and SpO2 of 94% on high flow cannula with 70% FiO2 Morning labs completed and reviewed. PTT therapeutic at 50.6. CBC showing mild leukocytosis with WBC count of 11.2 likely reactive secondary to IV steroid use and stable thrombocytopenia with platelet count of 131. BMP showing hyperchloremia with chloride of 112 and hypocarbia with bicarb of 21. Renal function improving with BUN of 32, creatinine of 0.95, GFR of 63. Liver profile also showing improvement with AST of 35, ALT of 74, and alkaline phosphatase of 87. CODE STATUS: Full code DVT prophylaxis: Heparin Anticipated discharge date: Clinical course to determine Anticipated discharge place: Clinical course to determine Patient was seen independently by Nurse Practitioner. This document was prepared using Telly dictation software. Please allow for errors in assistant surveyor while rare they do occur. Pan Argueta KNITTING SUPERVISOR rendered care for this patient independently, reviewed the findings and plan as documented in the note above. I did not physically speak with or examine the patient on this date. Objective - Vital Signs Vital signs: Vital Signs Temp 98.1 F 03/24/24 04:00 Pulse 63 03/24/24 04:00 Resp 19 03/24/24 04:00 BP 137/66 03/24/24 04:00 Pulse Ox 94 L 03/24/24 04:00 FiO2 70 03/24/24 04:12 Intake & Output 03/23/24 03/24/24 03/24/24 18:59 06:59 18:59 Intake Total 228.017 Output Total 300 Balance 228.017 -300 Weight 113.398 kg Intake: Intake, IV Titration 110.017 Amount Heparin Sod,Pork in 0.45% 110.017 NaCl 25,000 unit In 0.45 % NaCl 1 250ml.bag @ 18 UNITS/KG/HR 20.412 mls/hr IV .[id number] [facility] Rx#: [id number] Oral 118 Output: Urine 300 - Labs CBC & Chem 7: 03/24/24 06:46 03/24/24 06:46 Labs: Abnormal Lab Results - Last 24 Hours (Table) 03/23/24 03/23/24 03/23/24 Range/Units 11:01 13:13 17:23 WBC (3.8-10.6) k/uL Plt Count (150-450) k/uL APTT 84.3 H 68.0 H 62.4 H (22.0-30.0) sec 03/23/24 03/24/24 03/24/24 Range/Units 23:56 06:46 06:46 WBC 11.2 H (3.8-10.6) k/uL Plt Count 131 L (150-450) k/uL APTT 55.1 H 50.6 H (22.0-30.0) sec
--- NOTE | 2024-03-24 12:57 | XR ---
EXAMINATION TYPE: XR chest 1V DATE OF EXAM: 03/24/2024 COMPARISON: 03/22/2024 HISTORY: Shortness of breath TECHNIQUE: Single frontal view of the chest is obtained. FINDINGS: Limited inspiration with bilateral lower lobe consolidation greater on the left with small effusions greater on the left. No pneumothorax or overt failure. Heart enlarged. Atherosclerotic prem nge aorta. Diffuse osteopenia, arthropathy of the shoulders and degenerative change spine. IMPRESSION: Bilateral lower lobe infiltrate and small effusion. No overt failure.
[2024-03-24 13:10] LABS: C Reactive Protein <0.5 mg/dL (<1.0); LDH 265 U/L (120-246)
--- NOTE | 2024-03-24 13:42 | US ---
EXAMINATION TYPE: US venous doppler duplex LE DATE OF EXAM: 03/24/2024 11:43 AM COMPARISON: NONE CLINICAL INDICATION: Female, 68 years old with history of PE; On heparin. Bilateral PE. SIDE PERFORMED: Bilateral TECHNIQUE: The lower extremity deep venous system is examined utilizing real time linear array sonog aquilino with graded compression, doppler sonography and color-flow sonography. VESSELS IMAGED: Common Femoral Vein Deep Femoral Vein Greater Saphenous Vein * Femoral Vein Popliteal Vein Small Saphenous Vein * Proximal Calf Veins (* superficial vessels) Right Leg: Positive for DVT from mid popliteal to calf veins. Report called to the patients nurse Micah keith at 1:38 PM 03/24/2024. Left Leg: Negative for DVT IMPRESSION: 1. Exam is positive acute DVT right mid popliteal vein extending into the calf veins.
--- NOTE | 2024-03-24 16:20 | P.PN ---
Subjective Progress Note Date: 03/24/24 68-year-old female brought in by EMS, from a local correction. The patient apparently developed shortness of breath, and for that reason was sent in to be evaluated. She was in correction for rehabilitation, having recently had a stroke, with right-sided weakness. The patient apparently developed marked shortness of breath, appeared dusky, with blue lips, and saturations in the upper 70s. The patient was placed on oxygen, and EMS was called, the patient was transported here for further evaluation. She was seen in ER, room 3. Evaluation revealed evidence of bilateral pulmonary emboli. The patient recently tested positive for coronavirus infection, at the correction, on March 20. Currently she is on IV heparin, saline at 75 cc an hour, and high flow nasal O2 at 10 L. She has a history of hyperlipidemia, hypertension, CVA, and recent coronavirus infection. Current labs include a white count 8.2, hemoglobin 14.3, hematocrit 43.6, and a platelet count of 112,000. D-dimer was greater than 35. Sodium 139, potassium 5.1, chlorides 108, CO2 24, BUN 41, and creatinine 1.21. Glucose was 118. AST 47. ALT 90. Troponin was less than 0.012. Albumin was 3.9. N-terminal proBNP was normal. Chest x-ray was unremarkable. CT angiogram was positive for bilateral pulmonary emboli, with moderate burden, localized to the bilateral upper lobes, as well as in the right middle lobe. There is no evidence on CT, of right heart strain. In addition, there was moderate to advanced emphysematous changes, with some basilar atelectasis. Progress note dated March 23, 2024. The patient is seen today in ER 16, and she continues on 8 L high flow oxygen. She is receiving IV heparin. She did test positive for coronavirus, on March 19. The patient came from the correction. She is feeling better today, and feeling less short of breath. Current labs include a white count 6.7, hem oglobin 13.8, hematocrit 45.6, and a platelet count of 105,000. PTT is 84.3. Troponins were negative x 2. On today's evaluation of 03/24/2024, the patient is being seen for a follow-up that has been progressive worsening in the patient's oxygenation since yesterday. This morning, the patient is on a high flow oxygen at 40 L with an FiO2 of Hearing 70%. The patient is running a pulse ox of 97% and according to her she was dropped down to 60%. She is hemodynamically stable. She has expressive aphasia has quite difficult to communicate with the patient. She does have bilateral pulmonary embolism as discussed on a CT scan of the chest and the patient also has a positive DVT in the right mid popliteal vein extending to the calfs. Based on that, the patient was admitted on IV heparin. She also has a component of COPD exacerbation. She has extensive bilateral emphysematous changes on the CAT scan of the chest and the patient is currently on a combination of bronchodilators and IV Solu-Medrol. She also tested positive for COVID 19. Her sodium level is at 140, potassium is 4.9, bicarb is 21 BUN of 32 with a creatinine of 0.9. WBC 11.2 with a hemoglobin 12.6. The patient is not using accessory muscles of breathing. She is quite comfortable at this point in time. Echocardiogram that was done on 03/22/2024 showed a normal ejection fraction. RV was not visualized to comment on this strain pattern. Objective - Vital Signs Vital signs: Vital Signs Temp 98.1 F 03/24/24 04:00 Pulse 63 03/24/24 04:00 Resp 19 03/24/24 04:00 BP 137/66 03/24/24 04:00 Pulse Ox 97 03/24/24 09:19 FiO2 70 03/24/24 09:19 Intake & Output 03/23/24 03/24/24 03/24/24 18:59 06:59 18:59 Intake Total 228.017 120 Output Total 300 Balance 228.017 -300 120 Weight 113.398 kg Intake: Intake, IV Titration 110.017 Amount Heparin Sod,Pork in 0.45% 110.017 NaCl 25,000 unit In 0.45 % NaCl 1 250ml.bag @ 18 UNITS/KG/HR 20.412 mls/hr IV .[id number] [facility] Rx#: [id number] Oral 118 120 Output: Urine 300 - Exam No acute distress, oriented 3. Currently on Airvo with 60 L and FiO2 of 80%, not using accessory muscles of breathing at this point in time. Head exam was generally normal. There was no scleral icterus or corneal arcus. Mucous membranes were moist. , HEENT examination is grossly unremarkable. Mucous membranes are moist. No oral lesions. Neck supple. Full range of motion. No adenopathy thyromegaly or neck vein distention. Cardiovascular examination reveals regular rhythm rate. S1-S2 normal. No S3 or S4. No discernible murmur noted. Lungs reveal mild scattered rhonchi. Breath sounds equal bilaterally. No wheezes or crackles. Abdomen soft bowel sounds are heard. No masses or tenderness. Extremities are intact. No cyanosis clubbing or edema. Skin is without rash or lesion. Neurologic examination is brief but nonfocal. - Labs CBC & Chem 7: 03/24/24 06:46 03/24/24 06:46 Labs: Abnormal Lab Results - Last 24 Hours (Table) 03/23/24 03/23/24 03/23/24 Range/Units 11:01 13:13 17:23 WBC (3.8-10.6) k/uL Plt Count (150-450) k/uL APTT 84.3 H 68.0 H 62.4 H (22.0-30.0) sec Chloride (98-107) mmol/L Carbon Dioxide (22-30) mmol/L BUN (7-17) mg/dL Glucose (74-99) mg/dL ALT (4-34) U/L Albumin (3.5-5.0) g/dL 03/23/24 03/24/24 03/24/24 Range/Units 23:56 06:46 06:46 WBC 11.2 H (3.8-10.6) k/uL Plt Count 131 L (150-450) k/uL APTT 55.1 H 50.6 H (22.0-30.0) sec Chloride (98-107) mmol/L Carbon Dioxide (22-30) mmol/L BUN (7-17) mg/dL Glucose (74-99) mg/dL ALT (4-34) U/L Albumin (3.5-5.0) g/dL 03/24/24 Range/Units 06:46 WBC (3.8-10.6) k/uL Plt Count (150-450) k/uL APTT (22.0-30.0) sec Chloride 112 H (98-107) mmol/L Carbon Dioxide 21 L (22-30) mmol/L BUN 32 H (7-17) mg/dL Glucose 158 H (74-99) mg/dL ALT 74 H (4-34) U/L Albumin 3.3 L (3.5-5.0) g/dL Assessment and Plan Plan: Acute hypoxic respiratory failure DVT. Multifactorial. The patient has bilateral pulm embolism and right lower extremity DVT addition to COPD exacerbation. No clear indication for COVID-19 related pneumonia. Acute right lower extremity DVT Acute bilateral pulmonary embolism, currently on IV heparin Acute s COPD exacerbation COVID 19, 03/19/2024, and apparently this is the patient's second COVID-19 infection. History of recent CVA with right-sided weakness. The patient has expressive aphasia History of hypertension. History of hyperlipidemia. Obesity Plan: Keep the patient on Airvo 40 L with FiO2 of 60% and gradually wean down FiO2 as tolerated Continue DuoNeb treatments [id number] IV Solu-Medrol 40 mg every 8 hours IV heparin Check CRP and LDH levels D-dimer has been quite elevated Provide the patient incentive spirometer Will monitor the patient's progress closely on the medical floor.
[2024-03-25] MEDS: HEPARIN SODIUM 1,000 UN/ML (10ML VL) IV PRN (09:53)
--- NOTE | 2024-03-25 12:37 | P.PN ---
Subjective Progress Note Date: 03/25/24 Hospital Course: Patient is a pleasant 68-year-old female with a past medical history of hypertension, hyperlipidemia, stage IIIa CKD and recent CVA. She is currently residing at [facility] undergoing rehab from recent stroke with deficits of right-sided weakness and expressive aphasia. While undergoing rehab, patient developed mild shortness of breath and cough and was diagnosed with COVID-19 infection on 03/18/2024. Patient reports her shortness of breath significantly worsened and nursing staff at [facility] called EMS to transport her to the emergency department. Per documentation in chart patient was found by EMS in respiratory distress on 2 L O2 with SpO2 of 80% requiring placement on nonrebreather mask at 15 L to maintain oxygen saturation in the 90s. Upon arrival to the emergency department, patient underwent evaluation. Vital signs upon arrival show blood pressure 148/79, heart rate 62, respiratory rate 20, temp 98.0 F, and SpO2 of 99% on 15 L supplemental oxygen. EKG was completed showing normal sinus rhythm at 61 bpm with no noted T wave or ST abnormalities showing no signs of acute ischemia upon personal review and interpretation. Chest x-ray completed negative for acute cardiopulmonary process. Labs were com pleted and reviewed. CBC showing thrombocytopenia with platelet count of 112. BMP revealing mild hyperchloremia with chloride of 108 and consistent with known stage IIIa CKD with BUN of 41, creatinine of 1.21, GFR 47. Blood glucose was 118. Troponin was negative at less than 0.012. proBNP 94. D-dimer was elevated at greater than 35. CTA chest completed showing pulmonary emboli with overall moderate burden localized to the bilateral upper lobes as well as right middle lobe with no CT evidence for right heart strain at this time along with moderate to advanced emphysema and dependent opacities reported to be likely representing prominent dependent atelectasis. Patient was started on high intensity heparin infusion for treatment of PE. She was admitted under our services with consultation to pulmonology.Echocardiogram completed revealing an EF of 50 to 55%, right ventricle was not well-visualized on echocardiogram block paver recommending referring to CT scan findings showing no signs of RV strain. Bilateral lower extremity Dopplers completed. Left lower extremity negative for DVT right leg positive for DVT from mid popliteal to calf veins. Physical exam: Patient seen and fully evaluated at the bedside this morning. She remains on high flow nasal cannula. She reports feeling miserable with continued weakness, fatigue and shortness of breath. She denies experiencing any pain or discomfort. Vital signs reviewed and stable. General: Nontoxic, no distress and appears stated age. Derm: Skin warm and dry, normal coloration for ethnicity. Head: Atraumatic, normocephalic and symmetric. Eyes: EOMs intact, no lid lag, and anicteric sclera Mouth: no lip lesions, mucus membranes moist Cardiovascular: regular rate and rhythm with normal S1S2, no murmur, positive posterior tibial pulses bilaterally, and cap refill < 2 seconds. Lungs: Respirations even, regular, and unlabored on Airvo at 40 L with FiO2 of 60%.. Lungs diminished with diffuse rhonchi, no rales, or wheezing noted. Abdominal: soft, nontender to palpation, no guarding, no appreciable organomegaly Ext: No gross muscle atrophy, no edema, no contractures. Right upper and lower extremity flaccidity. Neuro: Speech clear, face symmetrical and CN II-XII grossly intact with no noted focal neuro deficits Psych: Alert and oriented to person, place, time, and situation. Appropriate and pleasant affect. Assessment and Plan of Care: Acute respiratory failure with hypoxia Bilateral pulmonary emboli Right lower extremity DVT COVID-19 infection History of recent CVA with right-sided deficits Elevated liver enzymes Thrombocytopenia Hypertension Hyperlipidemia -Oxygenation to be administered and titrated as needed to maintain SPO2 equal to or greater than 92% -Bilateral lower extremity Dopplers completed. Left lower extremity negative for DVT right leg positive for DVT from mid popliteal to calf veins. -Continuation of high intensity heparin infusion with repeat PTT every 6 hours to monitor for goal therapeutic range of 44 to 79 seconds. PTT currently subtherapeutic at 36.8, heparin infusion increased from 7 units/kg/h to 9 units/kg/h. -Pulmonology following, reviewed documentation in chart. -Telemetry monitoring. -Echocardiogram completed revealing an EF of 50 to 55%, right ventricle was not well-visualized on echocardiogram block paver recommending referring to CT scan findings showing no signs of RV strain. -Monitor pulse-oximetry -Ventolin inhaler scheduled 4 times daily and as needed for SOB and/or wheezing -Incentive Spirometry -Steroids: Solu-Medrol 40 mg IVP every 8 hours. -Patient to continue daily medication regimen with aspirin 81 mg daily, amiodarone 200 mg twice daily, amlodipine 5 mg twice daily, carvedilol 25 mg twice daily, and losartan 100 mg daily. Acute kidney injury, resolved -Renal function initially showing BUN of 41, creatinine 1.21, GFR of 47. This is resolved with current BUN of 32, creatinine 0.95, and GFR of 63. Data and imaging reviewed: Vital signs reviewed. Blood pressure 131/62, heart rate 62, respiratory rate 18, temp 98.4 F, and SpO2 of 97% on Airvo at 40 L with FiO2 of 60%. Laboratory values reviewed. PTT subtherapeutic at 36.8. LDH elevated at 265. CBC showing mild leukocytosis with WBC count of 11.2 likely reactive secondary to IV steroid use and stable thrombocytopenia with platelet count of 131. BMP showing hyperchloremia with chloride of 112 and hypocarbia with bicarb of 21. Renal function improving with BUN of 32, creatinine of 0.95, GFR of 63. Liver profile also showing improvement with AST of 35, ALT of 74, and alkaline phosphatase of 87. Bilateral lower extremity Dopplers completed. Left lower extremity negative for DVT right leg positive for DVT from mid popliteal to calf veins. Prognosis is guarded. CODE STATUS: Full code DVT prophylaxis: Heparin Anticipated discharge date: Clinical course to determine Anticipated discharge place: Clinical course to determine Patient was seen independently by Nurse Practitioner. This document was prepared using wavecatch dictation software. Please allow for errors in sales enablement specialist while rare they do occur. Pan Argueta NP rendered care for this patient independently, reviewed the findings and plan as documented in the note above. I did not physically speak with or examine the patient on this date. Objective - Vital Signs Vital signs: Vital Signs Temp 98.4 F 03/25/24 04:00 Pulse 60 03/25/24 04:00 Resp 19 03/25/24 04:00 BP 135/55 03/25/24 04:00 Pulse Ox 96 03/25/24 04:49 FiO2 64 03/25/24 04:49 Intake & Output 03/24/24 03/25/24 03/25/24 18:59 06:59 18:59 Intake Total 401.126 Output Total 900 Balance 401.126 -900 Intake: Intake, IV Titration 163.126 Amount Heparin Sod,Pork in 0.45% 163.126 NaCl 25,000 unit In 0.45 % NaCl 1 250ml.bag @ 18 UNITS/KG/HR 20.412 mls/hr IV .[id number] [facility] Rx#: [id number] Oral 238 Output: Urine 900 - Labs CBC & Chem 7: 03/24/24 06:46 03/24/24 06:46 Labs: Abnormal Lab Results - Last 24 Hours (Table) 03/24/24 03/24/24 Range/Units 06:46 06:46 Chloride 112 H (98-107) mmol/L Carbon Dioxide 21 L (22-30) mmol/L BUN 32 H (7-17) mg/dL Glucose 158 H (74-99) mg/dL ALT 74 H (4-34) U/L Lactate Dehydrogenase 265 H (120-246) U/L Albumin 3.3 L (3.5-5.0) g/dL
--- NOTE | 2024-03-25 15:06 | P.PN ---
Subjective Progress Note Date: 03/25/24 68-year-old female brought in by EMS, from a local [facility]. The patient apparently developed shortness of breath, and for that reason was sent in to be evaluated. She was in [facility]dc for rehabilitation, having recently had a stroke, with right-sided weakness. The patient apparently developed marked shortness of breath, appeared dusky, with blue lips, and saturations in the upper 70s. The patient was placed on oxygen, and EMS was called, the patient was transported here for further evaluation. She was seen in ER, room 3. Evaluation revealed evidence of bilateral pulmonary emboli. The patient recently tested positive for coronavirus infection, at the [facility]dc, on March 20. Currently she is on IV heparin, saline at 75 cc an hour, and high flow nasal O2 at 10 L. She has a history of hyperlipidemia, hypertension, CVA, and recent coronavirus infection. Current labs include a white count 8.2, hemoglobin 14.3, hematocrit 43.6, and a platelet count of 112,000. D-dimer was greater than 35. Sodium 139, potassium 5.1, chlorides 108, CO2 24, BUN 41, and creatinine 1.21. Glucose was 118. AST 47. ALT 90. Troponin was less than 0.012. Albumin was 3.9. N-terminal proBNP was normal. Chest x-ray was unremarkable. CT angiogram was positive for bilateral pulmonary emboli, with moderate burden, localized to the bilateral upper lobes, as well as in the right middle lobe. There is no evidence on CT, of right heart strain. In addition, there was moderate to advanced emphysematous changes, with some basilar atelectasis. Progress note dated March 23, 2024. The patient is seen today in ER 16, and she continues on 8 L high flow oxygen. She is receiving IV heparin. She did test positive for coronavirus, on March 19. The patient came from the [facility]. She is feeling better today, and feeling less short of breath. Current labs include a white count 6.7, hem oglobin 13.8, hematocrit 45.6, and a platelet count of 105,000. PTT is 84.3. Troponins were negative x 2. On today's evaluation of 03/24/2024, the patient is being seen for a follow-up that has been progressive worsening in the patient's oxygenation since yesterday. This morning, the patient is on a high flow oxygen at 40 L with an FiO2 of Hearing 70%. The patient is running a pulse ox of 97% and according to her she was dropped down to 60%. She is hemodynamically stable. She has expressive aphasia has quite difficult to communicate with the patient. She does have bilateral pulmonary embolism as discussed on a CT scan of the chest and the patient also has a positive DVT in the right mid popliteal vein extending to the calfs. Based on that, the patient was admitted on IV heparin. She also has a component of COPD exacerbation. She has extensive bilateral emphysematous changes on the CAT scan of the chest and the patient is currently on a combination of bronchodilators and IV Solu-Medrol. She also tested positive for COVID 19. Her sodium level is at 140, potassium is 4.9, bicarb is 21 BUN of 32 with a creatinine of 0.9. WBC 11.2 with a hemoglobin 12.6. The patient is not using accessory muscles of breathing. She is quite comfortable at this point in time. Echocardiogram that was done on 03/22/2024 showed a normal ejection fraction. RV was not visualized to comment on this strain pattern. On today's evaluation of 03/25/2024, the patient is being seen for a follow-up. The patient has bilateral pulm embolism and right lower extremity DVT. The patient became progressively more hypoxic and the patient had to be placed on Airvo. On today's evaluation, she remains on Airvo at 40 L with an FiO2 of 60%. The patient is pulse oximetry 95 to 98%. Will try to utilize high flow oxygen at 15 L and discontinue therefore. Less bronchospastic and wheezy on today's evaluation. Remains on DuoNeb updrafts. Remains on IV Solu-Medrol. Remains on IV heparin. IV Solu-Medrol is being administered to 40 mg every 8 hours. WBC count is 11.2 with hemoglobin 12.6 and a platelet count of 131. Those labs are from yesterday. No new labs are available from today. Objective - Vital Signs Vital signs: Vital Signs Temp 98.4 F 03/25/24 04:00 Pulse 62 03/25/24 08:00 Resp 18 03/25/24 08:00 BP 131/62 03/25/24 08:00 Pulse Ox 98 03/25/24 09:17 FiO2 70 03/25/24 09:17 Intake & Output 03/24/24 03/25/24 03/25/24 18:59 06:59 18:59 Intake Total 401.126 290.784 Output Total 900 Balance 401.126 -900 290.784 Intake: Intake, IV Titration 163.126 172.784 Amount Heparin Sod,Pork in 0.45% 163.126 172.784 NaCl 25,000 unit In 0.45 % NaCl 1 250ml.bag @ 18 UNITS/KG/HR 20.412 mls/hr IV .[id number] [facility] Rx#: [id number] Oral 238 118 Output: Urine 900 - Exam No acute distress, oriented 3. Currently on Airvo with 40 L with an FiO2 of 60 %, not using accessory muscles of breathing at this point in time. Head exam was generally normal. There was no scleral icterus or corneal arcus. Mucous membranes were moist. , HEENT examination is grossly unremarkable. Mucous membranes are moist. No oral lesions. Neck supple. Full range of motion. No adenopathy thyromegaly or neck vein distention. Cardiovascular examination reveals regular rhythm rate. S1-S2 normal. No S3 or S4. No discernible murmur noted. Lungs reveal mild scattered rhonchi. Breath sounds equal bilaterally. No wheezes or crackles. Abdomen soft bowel sounds are heard. No masses or tenderness. Extremities are intact. No cyanosis clubbing or edema. Skin is without rash or lesion. Neurologic examination is brief but nonfocal. - Labs CBC & Chem 7: 03/24/24 06:46 03/24/24 06:46 Labs: Abnormal Lab Results - Last 24 Hours (Table) 03/24/24 03/25/24 Range/Units 06:46 09:09 APTT 36.8 H (22.0-30.0) sec Lactate Dehydrogenase 265 H (120-246) U/L Assessment and Plan Plan: Acute hypoxic respiratory failure DVT. Multifactorial. The patient has bilateral pulm embolism and right lower extremity DVT addition to COPD exa cerbation. No clear indication for COVID-19 related pneumonia. The patient is currently on Airvo 40 L with FiO2 of 60% Acute right lower extremity DVT Acute bilateral pulmonary embolism, currently on IV heparin Acute s COPD exacerbation COVID 19, 03/19/2024, and apparently this is the patient's second COVID-19 infection. History of recent CVA with right-sided weakness. The patient has expressive aphasia History of hypertension. History of hyperlipidemia. Obesity Plan: Keep the patient on Airvo 40 L with FiO2 of 60% and gradually wean down FiO2 as tolerated, will try the patient on high flow oxygen 15 L and appropriate instructions were given to the nursing staff and respiratory therapy. Continue DuoNeb treatments [id number] IV Solu-Medrol 40 mg every 8 hours and this will be continued for another 24 hours. IV heparin Check CRP and LDH levels and the levels were low. D-dimer has been quite elevated Provide the patient incentive spirometer Will monitor the patient's progress closely on the medical floor. Goal is to titrate FiO2 as tolerated to maintain saturation above 90%.
[2024-03-26 11:57] LABS: Glucose,Whole Blood 160 mg/dL (70-110)
[2024-03-26] MEDS: APIXABAN 5 MG TAB PO SCH (12:16)
--- NOTE | 2024-03-26 14:38 | P.PN ---
Subjective Progress Note Date: 03/26/24 68-year-old female brought in by EMS, from a local [facility]. The patient apparently developed shortness of breath, and for that reason was sent in to be evaluated. [facility] was in [facility] for [facility], having recently had a stroke, with right-sided weakness. The patient apparently developed marked shortness of breath, appeared dusky, with blue lips, and saturations in the upper 70s. The patient was placed on oxygen, and EMS was called, the patient was transported here for further evaluation. She was seen in ER, room 3. Evaluation revealed evidence of bilateral pulmonary emboli. The patient recently tested positive for coronavirus infection, at the [facility], on March 20. Currently she is on IV heparin, saline at 75 cc an hour, and high flow nasal O2 at 10 L. She has a history of hyperlipidemia, hypertension, CVA, and recent coronavirus infection. Current labs include a white count 8.2, hemoglobin 14.3, hematocrit 43.6, and a platelet count of 112,000. D-dimer was greater than 35. Sodium 139, potassium 5.1, chlorides 108, CO2 24, BUN 41, and creatinine 1.21. Glucose was 118. AST 47. ALT 90. Troponin was less than 0.012. Albumin was 3.9. N-terminal proBNP was normal. Chest x-ray was unremarkable. CT angiogram was positive for bilateral pulmonary emboli, with moderate burden, localized to the bilateral upper lobes, as well as in the right middle lobe. There is no evidence on CT, of right heart strain. In addition, there was moderate to advanced emphysematous changes, with some basilar atelectasis. Progress note dated March 23, 2024. The patient is seen today in ER 16, and she continues on 8 L high flow oxygen. She is receiving IV heparin. She did test positive for coronavirus, on March 19. The patient came from the [facility]. She is feeling better today, and feeling less short of breath. Current labs include a white count 6.7, hem oglobin 13.8, hematocrit 45.6, and a platelet count of 105,000. PTT is 84.3. Troponins were negative x 2. On today's evaluation of 03/24/2024, the patient is being seen for a follow-up that has been progressive worsening in the patient's oxygenation since yesterday. This morning, the patient is on a high flow oxygen at 40 L with an FiO2 of Hearing 70%. The patient is running a pulse ox of 97% and according to her she was dropped down to 60%. She is hemodynamically stable. She has expressive aphasia has quite difficult to communicate with the patient. She does have bilateral pulmonary embolism as discussed on a CT scan of the chest and the patient also has a positive DVT in the right mid popliteal vein extending to the calfs. Based on that, the patient was admitted on IV heparin. She also has a component of COPD exacerbation. She has extensive bilateral emphysematous changes on the CAT scan of the chest and the patient is currently on a combination of bronchodilators and IV Solu-Medrol. She also tested positive for COVID 19. Her sodium level is at 140, potassium is 4.9, bicarb is 21 BUN of 32 with a creatinine of 0.9. WBC 11.2 with a hemoglobin 12.6. The patient is not using accessory muscles of breathing. She is quite comfortable at this point in time. Echocardiogram that was done on 03/22/2024 showed a normal ejection fraction. RV was not visualized to comment on this strain pattern. On today's evaluation of 03/25/2024, the patient is being seen for a follow-up. The patient has bilateral pulm embolism and right lower extremity DVT. The patient became progressively more hypoxic and the patient had to be placed on Airvo. On today's evaluation, she remains on Airvo at 40 L with an FiO2 of 60%. The patient is pulse oximetry 95 to 98%. Will try to utilize high flow oxygen at 15 L and discontinue therefore. Less bronchospastic and wheezy on today's evaluation. Remains on DuoNeb updrafts. Remains on IV Solu-Medrol. Remains on IV heparin. IV Solu-Medrol is being administered to 40 mg every 8 hours. WBC count is 11.2 with hemoglobin 12.6 and a platelet count of 131. Those labs are from yesterday. No new labs are available from today. On 03/26/2024, the patient is being seen for a follow-up. The patient is doing well. No specific complaints. She has expressive aphasia. Unable to communicate effectively. Note that the patient was taken off the Airvo yesterday and the patient is currently on 8 L of oxygen by nasal cannula with a pulse ox of 92%. She remains on IV heparin. I am going to discontinue the IV heparin and start the patient on anticoagulation with Eliquis. She was started 2010 mg p.o. twice a day. She remains on bronchodilators. She remains on IV Solu-Medrol regarding her COPD exacerbation. No new labs are available from today. The patient is hemodynamically stable. No significant tachycardia. No fever. Objective - Vital Signs Vital signs: Vital Signs Temp 97.7 F 03/26/24 04:00 Pulse 58 L 03/26/24 04:00 Resp 18 03/26/24 04:00 BP 132/65 03/26/24 04:00 Pulse Ox 92 L 03/26/24 09:06 FiO2 60 03/25/24 12:20 Intake & Output 03/25/24 03/26/24 03/26/24 18:59 06:59 18:59 Intake Total 608.000 240 Output Total 800 675 Balance -192.000 -675 240 Intake: Intake, IV Titration 250.000 Amount Heparin Sod,Pork in 0.45% 250.000 NaCl 25,000 unit In 0.45 % NaCl 1 250ml.bag @ 18 UNITS/KG/HR 20.412 mls/hr IV .[id number] [facility] Rx#: [id number] Oral 358 240 Output: Urine 800 675 - Exam No acute distress, oriented 3. Currently on 8 L of oxygen by nasal cannula Head exam was generally normal. There was no scleral icterus or corneal arcus. Mucous membranes were moist. , HEENT examination is grossly unremarkable. Mucous membranes are moist. No oral lesions. Neck supple. Full range of motion. No adenopathy thyromegaly or neck vein distention. Cardiovascular examination reveals regular rhythm rate. S1-S2 normal. No S3 or S4. No discernible murmur noted. Lungs reveal mild scattered rhonchi. Breath sounds equal bilaterally. No wheezes or crackles. Abdomen soft bowel sounds are heard. No masses or tenderness. Extremities are intact. No cyanosis clubbing or edema. Skin is without rash or lesion. Neurologic examination is brief but nonfocal. - Labs CBC & Chem 7: 03/24/24 06:46 03/24/24 06:46 Labs: Abnormal Lab Results - Last 24 Hours (Table) 03/25/24 03/26/24 Range/Units 19:04 09:29 APTT 74.8 H 63.8 H (22.0-30.0) sec Assessment and Plan Plan: Acute hypoxic respiratory failure DVT. Multifactorial. The patient has bilateral pulm embolism and right lower extremity DVT addition to COPD exacerbation. No clear indication for COVID-19 related pneumonia. The patient is currently off Airvo and the patient is currently on high flow oxygen at 8 L Acute right lower extremity DVT Acute bilateral pulmonary embolism, currently on IV heparin Acute s COPD exacerbation COVID 19, 03/19/2024, and apparently this is the patient's second COVID-19 infection. History of recent CVA with right-sided weakness. The patient has expressive aphasia History of hypertension. History of hyperlipidemia. Obesity Plan: Oxygenation is improved and the patient is currently on 8 L of O2 nasal cannula and Airvo has been discontinued. Continue DuoNeb treatments [id number] IV Solu-Medrol 40 mg every 8 hours and this will be continued for another 24 hours. Start the patient on prednisone burst taper as of tomorrow. IV heparin To be discontinued and the patient will be started on Eliquis 10 mg p.o. twice a day. Check CRP and LDH levels and the levels were low. D-dimer has been quite elevated Provide the patient incentive spirometer Will monitor the patient's progress closely on the medical floor. Goal is to titrate FiO2 as tolerated to maintain saturation above 90%.
--- NOTE | 2024-03-26 15:46 | P.PN ---
Subjective Progress Note Date: 03/26/24 Hospital Course: Patient is a pleasant 68-year-old female with a past medical history of hypertension, hyperlipidemia, stage IIIa CKD and recent CVA. She is currently residing at [facility] undergoing rehab from recent stroke with deficits of right-sided weakness and expressive aphasia. While undergoing rehab, patient developed mild shortness of breath and cough and was diagnosed with COVID-19 infection on 03/18/2024. Patient reports her shortness of breath significantly worsened and nursing staff at [facility] called EMS to transport her to the emergency department. Per documentation in chart patient was found by EMS in respiratory distress on 2 L O2 with SpO2 of 80% requiring placement on nonrebreather mask at 15 L to maintain oxygen saturation in the 90s. Upon arrival to the emergency department, patient underwent evaluation. Vital signs upon arrival show blood pressure 148/79, heart rate 62, respiratory rate 20, temp 98.0 F, and SpO2 of 99% on 15 L supplemental oxygen. EKG was completed showing normal sinus rhythm at 61 bpm with no noted T wave or ST abnormalities showing no signs of acute ischemia upon personal review and interpretation. Chest x-ray completed negative for acute cardiopulmonary process. Labs were com pleted and reviewed. CBC showing thrombocytopenia with platelet count of 112. BMP revealing mild hyperchloremia with chloride of 108 and consistent with known stage IIIa CKD with BUN of 41, creatinine of 1.21, GFR 47. Blood glucose was 118. Troponin was negative at less than 0.012. proBNP 94. D-dimer was elevated at greater than 35. CTA chest completed showing pulmonary emboli with overall moderate burden localized to the bilateral upper lobes as well as right middle lobe with no CT evidence for right heart strain at this time along with moderate to advanced emphysema and dependent opacities reported to be likely representing prominent dependent atelectasis. Patient was started on high intensity heparin infusion for treatment of PE. She was admitted under our services with consultation to pulmonology.Echocardiogram completed revealing an EF of 50 to 55%, right ventricle was not well-visualized on echocardiogram chute tender recommending referring to CT scan findings showing no signs of RV strain. Bilateral lower extremity Dopplers completed. Left lower extremity negative for DVT right leg positive for DVT from mid popliteal to calf veins. Physical exam: Patient seen and fully evaluated at the bedside this morning. She remains on high flow nasal cannula. She reports feeling slightly better this morning but states continued weakness, fatigue and shortness of breath. She denies experiencing any pain or discomfort at this time. Vital signs reviewed and stable. General: Nontoxic, no distress and appears stated age. Derm: Skin warm and dry, normal coloration for ethnicity. Head: Atraumatic, normocephalic and symmetric. Eyes: EOMs intact, no lid lag, and anicteric sclera Mouth: no lip lesions, mucus membranes moist Cardiovascular: regular rate and rhythm with normal S1S2, no murmur, positive posterior tibial pulses bilaterally, and cap refill < 2 seconds. Lungs: Respirations even, regular, and unlabored on high flow nasal cannula 8 L.. Lungs diminished with diffuse rhonchi, no rales, or wheezing noted. Abdominal: soft, nontender to palpation, no guarding, no appreciable organomegaly Ext: No gross muscle atrophy, no edema, no contractures. Right upper and lower extremity flaccidity. Neuro: Speech clear mild expressive aphasia at times, right-sided facial droop. GCS 15. Psych: Alert and oriented to person, place, time, and situation. Appropriate and pleasant affect. Assessment and Plan of Care: Acute respiratory failure with hypoxia Bilateral pulmonary emboli Right lower extremity DVT COVID-19 infection History of recent CVA with right-sided deficits Elevated liver enzymes Thrombocytopenia Hypertension Hyperlipidemia -Oxygenation to be administered and titrated as needed to maintain SPO2 equal to or greater than 92% -Bilateral lower extremity Dopplers completed. Left lower extremity negative for DVT right leg positive for DVT from mid popliteal to calf veins. -Continuation of high intensity heparin infusion with repeat PTT every 6 hours to monitor for goal therapeutic range of 44 to 79 seconds. PTT therapeutic at 63.8 seconds.. -Pulmonology following, reviewed documentation in chart. -Telemetry monitoring. -Echocardiogram completed revealing an EF of 50 to 55%, right ventricle was not well-visualized on echocardiogram chute tender recommending referring to CT scan findings showing no signs of RV strain. -Monitor pulse-oximetry -Ventolin inhaler scheduled 4 times daily and as needed for SOB and/or wheezing -Incentive Spirometry -Steroids: Solu-Medrol 40 mg IVP every 8 hours. -Patient to continue daily medication regimen with aspirin 81 mg daily, amiodarone 200 mg twice daily, amlodipine 5 mg twice daily, carvedilol 25 mg twice daily, and losartan 100 mg daily. Acute kidney injury, resolved -Renal function initially showing BUN of 41, creatinine 1.21, GFR of 47. This is resolved with current BUN of 32, creatinine 0.95, and GFR of 63. Data and imaging reviewed: Vital signs reviewed. Blood pressure 153/71, heart rate 64, respiratory rate 18, temp 98.4 F, and SpO2 of 93% on 8 L high flow nasal cannula. Laboratory values reviewed. PTT therapeutic at 63.8 seconds.. Prognosis is guarded. CODE STATUS: Full code DVT prophylaxis: Heparin Anticipated discharge date: Clinical course to determine Anticipated discharge place: Clinical course to determine Patient was seen independently by Nurse Practitioner. This document was prepared using [employer] dictation software. Please allow for errors in printed circuit board panels developer while rare they do occur. Pan Argueta NP rendered care for this patient independently, reviewed the findings and plan as documented in the note above. I did not physically speak with or examine the patient on this date. Objective - Vital Signs Vital signs: Vital Signs Temp 97.7 F 03/26/24 04:00 Pulse 58 L 03/26/24 04:00 Resp 18 03/26/24 04:00 BP 132/65 03/26/24 04:00 Pulse Ox 93 L 03/26/24 04:00 FiO2 60 03/25/24 12:20 Intake & Output 03/25/24 03/26/24 03/26/24 18:59 06:59 18:59 Intake Total 608.000 Output Total 800 675 Balance -192.000 -675 Intake: Intake, IV Titration 250.000 Amount Heparin Sod,Pork in 0.45% 250.000 NaCl 25,000 unit In 0.45 % NaCl 1 250ml.bag @ 18 UNITS/KG/HR 20.412 mls/hr IV .[id number] [facility] Rx#: [id number] Oral 358 Output: Urine 800 675 - Labs CBC & Chem 7: 03/24/24 06:46 03/24/24 06:46 Labs: Abnormal Lab Results - Last 24 Hours (Table) 03/25/24 03/25/24 Range/Units 09:09 19:04 APTT 36.8 H 74.8 H (22.0-30.0) sec
[2024-03-26 17:05] LABS: Glucose,Whole Blood 184 mg/dL (70-110)
[2024-03-26 20:20] LABS: Glucose,Whole Blood 189 mg/dL (70-110)
[2024-03-27 06:25] LABS: Glucose,Whole Blood 147 mg/dL (70-110)
[2024-03-27 09:32] LABS: HCT 39.1 % (34.0-46.0); HGB 12.2 gm/dL (11.4-16.0); MCH 29.5 pg (25.0-35.0); MCHC 31.3 g/dL (31.0-37.0); MCV 94.5 fL (80.0-100.0); Mean Platelet Volume 8.5; Platelet Count 152 k/uL (150-450); RBC 4.13 m/uL (3.80-5.40); RDW 14.7 % (11.5-15.5)
[2024-03-27 10:27] LABS: ALT 119 U/L (4-34); AST 46 U/L (14-36); African American GFR (CKD) >90 (>60 ml/min/1.73 sqM); Albumin 3.1 g/dL (3.5-5.0); Alkaline Phosphatase 74 U/L (38-126); Anion Gap 4 mmol/L; Blood Urea Nitrogen 30 mg/dL (7-17); Calcium 9.7 mg/dL (8.4-10.2); Carbon Dioxide 26 mmol/L (22-30); Chloride 111 mmol/L (98-107); Glucose 144 mg/dL (74-99); Magnesium 2.1 mg/dL (1.6-2.3); Non-African American GFR(CKD) 90 (>60 ml/min/1.73 sqM); Potassium 4.5 mmol/L (3.5-5.1); Sodium 141 mmol/L (137-145); Total Bilirubin 0.7 mg/dL (0.2-1.3)
[2024-03-27 11:53] LABS: Glucose,Whole Blood 131 mg/dL (70-110)
[2024-03-27 13:07] VITALS: BMI 35.9
--- NOTE | 2024-03-27 15:43 | P.PN ---
Subjective Progress Note Date: 03/27/24 Pt is doing well, has no new complaints. Remains stable on 8L NC, saturating 94%. Plan is to titrate down oxygen as able. Gen: In NAD, non-toxic HEENT: normocephalic, atraumatic, hearing acuity is intant, mucous membranes moist CVS: perfusing all extremities well, no pitting edema, Respiratory: symmetric chest expansion, no accessory muscle use, GI: soft, NTTP, ND, : no suprapubic tenderness, no CVA tenderness MSK/Derm: no rashes, cyanosis Neuro: CN II-XII intact, no motor weakness, Psych: cooperative, euthymic mood, judgment and insight is intact Hospital Course: Patient is a pleasant 68-year-old female with a past medical history of hypertension, hyperlipidemia, stage IIIa CKD and recent CVA who presented for hypoxia and cyanosis. Upon arrival to the emergency department, patient underwent evaluation. Vital signs upon arrival show blood pressure 148/79, heart rate 62, respiratory rate 20, temp 98.0 F, and SpO2 of 99% on 15 L supple mental oxygen. EKG was completed showing normal sinus rhythm at 61 bpm with no noted T wave or ST abnormalities showing no signs of acute ischemia upon personal review and interpretation. Chest x-ray completed negative for acute cardiopulmonary process. Labs were completed and reviewed. CBC showing thrombocytopenia with platelet count of 112. BMP revealing mild hyperchloremia with chloride of 108 and consistent with known stage IIIa CKD with BUN of 41, creatinine of 1.21, GFR 47. Blood glucose was 118. Troponin was negative at less than 0.012. proBNP 94. D-dimer was elevated at greater than 35. CTA chest completed showing pulmonary emboli with overall moderate burden localized to the bilateral upper lobes as well as right middle lobe with no CT evidence for right heart strain at this time along with moderate to advanced emphysema and dependent opacities reported to be likely representing prominent dependent atelectasis. Patient was started on high intensity heparin infusion for treatment of PE. She was admitted under our services with consultation to pulmonology.Echocardiogram completed revealing an EF of 50 to 55%, right ventricle was not well-visualized on echocardiogram producer assistant recommending referring to CT scan findings showing no signs of RV strain. Bilateral lower extremity Dopplers completed. Left lower extremity negative for DVT right leg positive for DVT from mid popliteal to calf veins. Assessment and Plan of Care: Acute respiratory failure with hypoxia Bilateral pulmonary emboli Right lower extremity DVT -Oxygen as needed, target saturation 92% or higher, currently at 8 L of nasal cannula -Heparin drip transition to apixaban -Encourage PT/OT -Pulmonology following -Albuterol as needed, encourage incentive spirometry COVID-19 infection COPD exacerbation -Solu-Medrol -No indication for antibiotics History of recent CVA with right-sided deficits Elevated liver enzymes Thrombocytopenia Hypertension Hyperlipidemia -Patient to continue daily medication regimen with aspirin 81 mg daily, amiodarone 200 mg twice daily, amlodipine 5 mg twice daily, carvedilol 25 mg twice daily, and losartan 100 mg daily. Acute kidney injury, resolved CODE STATUS: Full code DVT prophylaxis: Heparin This document was prepared using [employer] dictation software. Please allow for errors in utility accounts director while rare they do occur. Objective - Vital Signs Vital signs: Vital Signs Temp 98.1 F 03/27/24 12:00 Pulse 66 03/27/24 12:00 Resp 19 03/27/24 12:00 BP 139/71 03/27/24 12:00 Pulse Ox 91 L 03/27/24 12:00 FiO2 60 03/25/24 12:20 Intake & Output 03/26/24 03/27/24 03/27/24 18:59 06:59 18:59 Intake Total 600 750 358 Output Total 400 1750 600 Balance 200 -1000 -242 Weight 113.398 kg Intake: Intake, IV Titration 750 Amount Sodium Chloride 0.9% 1, 750 000 ml @ 75 mls/hr IV . [id number] [facility] Rx#:[id number] Oral 600 358 Output: Urine 400 1750 600 Other: Voiding Method External Catheter External Catheter External Catheter # Bowel Movements 1 1 - Labs CBC & Chem 7: 03/27/24 08:46 03/27/24 08:46 Labs: Abnormal Lab Results - Last 24 Hours (Table) 03/26/24 03/26/24 03/27/24 Range/Units 17:03 20:19 06:24 WBC (3.8-10.6) k/uL Chloride (98-107) mmol/L BUN (7-17) mg/dL Glucose (74-99) mg/dL POC Glucose (mg/dL) 184 H 189 H 147 H (70-110) mg/dL AST (14-36) U/L ALT (4-34) U/L Total Protein (6.3-8.2) g/dL Albumin (3.5-5.0) g/dL 03/27/24 03/27/24 03/27/24 Range/Units 08:46 08:46 11:51 WBC 12.0 H (3.8-10.6) k/uL Chloride 111 H (98-107) mmol/L BUN 30 H (7-17) mg/dL Glucose 144 H (74-99) mg/dL POC Glucose (mg/dL) 131 H (70-110) mg/dL AST 46 H (14-36) U/L ALT 119 H (4-34) U/L Total Protein 6.0 L (6.3-8.2) g/dL Albumin 3.1 L (3.5-5.0) g/dL
[2024-03-27 16:43] LABS: Glucose,Whole Blood 189 mg/dL (70-110)
[2024-03-27 19:43] LABS: Glucose,Whole Blood 171 mg/dL (70-110)
--- NOTE | 2024-03-27 19:52 | P.PN ---
Subjective Progress Note Date: 03/27/24 68-year-old female brought in by EMS, from a local [facility]. The patient apparently developed shortness of breath, and for that reason was sent in to be evaluated. [facility] was in [facility] for [facility], having recently had a stroke, with right-sided weakness. The patient apparently developed marked shortness of breath, appeared dusky, with blue lips, and saturations in the upper 70s. The patient was placed on oxygen, and EMS was called, the patient was transported here for further evaluation. She was seen in ER, room 3. Evaluation revealed evidence of bilateral pulmonary emboli. The patient recently tested positive for coronavirus infection, at the [facility], on March 20. Currently she is on IV heparin, saline at 75 cc an hour, and high flow nasal O2 at 10 L. She has a history of hyperlipidemia, hypertension, CVA, and recent coronavirus infection. Current labs include a white count 8.2, hemoglobin 14.3, hematocrit 43.6, and a platelet count of 112,000. D-dimer was greater than 35. Sodium 139, potassium 5.1, chlorides 108, CO2 24, BUN 41, and creatinine 1.21. Glucose was 118. AST 47. ALT 90. Troponin was less than 0.012. Albumin was 3.9. N-terminal proBNP was normal. Chest x-ray was unremarkable. CT angiogram was positive for bilateral pulmonary emboli, with moderate burden, localized to the bilateral upper lobes, as well as in the right middle lobe. There is no evidence on CT, of right heart strain. In addition, there was moderate to advanced emphysematous changes, with some basilar atelectasis. Progress note dated March 23, 2024. The patient is seen today in ER 16, and she continues on 8 L high flow oxygen. She is receiving IV heparin. She did test positive for coronavirus, on March 19. The patient came from the [facility]. She is feeling better today, and feeling less short of breath. Current labs include a white count 6.7, hem oglobin 13.8, hematocrit 45.6, and a platelet count of 105,000. PTT is 84.3. Troponins were negative x 2. On today's evaluation of 03/24/2024, the patient is being seen for a follow-up that has been progressive worsening in the patient's oxygenation since yesterday. This morning, the patient is on a high flow oxygen at 40 L with an FiO2 of Hearing 70%. The patient is running a pulse ox of 97% and according to her she was dropped down to 60%. She is hemodynamically stable. She has expressive aphasia has quite difficult to communicate with the patient. She does have bilateral pulmonary embolism as discussed on a CT scan of the chest and the patient also has a positive DVT in the right mid popliteal vein extending to the calfs. Based on that, the patient was admitted on IV heparin. She also has a component of COPD exacerbation. She has extensive bilateral emphysematous changes on the CAT scan of the chest and the patient is currently on a combination of bronchodilators and IV Solu-Medrol. She also tested positive for COVID 19. Her sodium level is at 140, potassium is 4.9, bicarb is 21 BUN of 32 with a creatinine of 0.9. WBC 11.2 with a hemoglobin 12.6. The patient is not using accessory muscles of breathing. She is quite comfortable at this point in time. Echocardiogram that was done on 03/22/2024 showed a normal ejection fraction. RV was not visualized to comment on this strain pattern. On today's evaluation of 03/25/2024, the patient is being seen for a follow-up. The patient has bilateral pulm embolism and right lower extremity DVT. The patient became progressively more hypoxic and the patient had to be placed on Airvo. On today's evaluation, she remains on Airvo at 40 L with an FiO2 of 60%. The patient is pulse oximetry 95 to 98%. Will try to utilize high flow oxygen at 15 L and discontinue therefore. Less bronchospastic and wheezy on today's evaluation. Remains on DuoNeb updrafts. Remains on IV Solu-Medrol. Remains on IV heparin. IV Solu-Medrol is being administered to 40 mg every 8 hours. WBC count is 11.2 with hemoglobin 12.6 and a platelet count of 131. Those labs are from yesterday. No new labs are available from today. On 03/26/2024, the patient is being seen for a follow-up. The patient is doing well. No specific complaints. She has expressive aphasia. Unable to communicate effectively. Note that the patient was taken off the Airvo yesterday and the patient is currently on 8 L of oxygen by nasal cannula with a pulse ox of 92%. She remains on IV heparin. I am going to discontinue the IV heparin and start the patient on anticoagulation with Eliquis. She was started 2010 mg p.o. twice a day. She remains on bronchodilators. She remains on IV Solu-Medrol regarding her COPD exacerbation. No new labs are available from today. The patient is hemodynamically stable. No significant tachycardia. No fever. 03/27/2024, the patient is being seen for a follow-up. The patient is currently on 8 L of oxygen by nasal cannula. No significant interval improvement in oxygenation. I believe that the patient should be able to gradually wean off the FiO2. She remains on anticoagulation she is currently on Eliquis. She is on IV Solu-Medrol and bronchodilators. IV Solu-Medrol will be discontinued and the patient will be started on a prednisone burst taper today. She has expressive aphasia. Unable to communicate. White cell count of 12 with a hemoglobin 12.2, BUN is at 30 with a creatinine of 0.7. LFTs are unchanged. No fever. No chills. No other significant events. She is bedridden with right-sided hemiplegia and expressive aphasia related to a previous CVA. Objective - Vital Signs Vital signs: Vital Signs Temp 98.1 F 03/27/24 16:51 Pulse 65 03/27/24 16:51 Resp 18 03/27/24 16:51 BP 151/66 03/27/24 16:51 Pulse Ox 90 L 03/27/24 16:51 FiO2 60 03/25/24 12:20 Intake & Output 03/26/24 03/27/24 03/27/24 18:59 06:59 18:59 Intake Total 600 750 358 Output Total 400 1750 600 Balance 200 -1000 -242 Weight 113.398 kg Intake: Intake, IV Titration 750 Amount Sodium Chloride 0.9% 1, 750 000 ml @ 75 mls/hr IV . [id number] [facility] Rx#:[id number] Oral 600 358 Output: Urine 400 1750 600 Other: Voiding Method External Catheter External Catheter External Catheter # Bowel Movements 1 1 - Exam No acute distress, oriented 3. Currently on 8 L of oxygen by nasal cannula Head exam was generally normal. There was no scleral icterus or corneal arcus. Mucous membranes were moist. , HEENT examination is grossly unremarkable. Mucous membranes are moist. No oral lesions. Neck supple. Full range of motion. No adenopathy thyromegaly or neck vein distention. Cardiovascular examination reveals regular rhythm rate. S1-S2 normal. No S3 or S4. No discernible murmur noted. Lungs reveal mild scattered rhonchi. Breath sounds equal bilaterally. No wheezes or crackles. Abdomen soft bowel sounds are heard. No masses or tenderness. Extremities are intact. No cyanosis clubbing or edema. Skin is without rash or lesion. Neurologic examination is brief but nonfocal. - Labs CBC & Chem 7: 03/27/24 08:46 03/27/24 08:46 Labs: Abnormal Lab Results - Last 24 Hours (Table) 03/26/24 03/27/24 03/27/24 Range/Units 20:19 06:24 08:46 WBC 12.0 H (3.8-10.6) k/uL Chloride (98-107) mmol/L BUN (7-17) mg/dL Glucose (74-99) mg/dL POC Glucose (mg/dL) 189 H 147 H (70-110) mg/dL AST (14-36) U/L ALT (4-34) U/L Total Protein (6.3-8.2) g/dL Albumin (3.5-5.0) g/dL 03/27/24 03/27/24 03/27/24 Range/Units 08:46 11:51 16:41 WBC (3.8-10.6) k/uL Chloride 111 H (98-107) mmol/L BUN 30 H (7-17) mg/dL Glucose 144 H (74-99) mg/dL POC Glucose (mg/dL) 131 H 189 H (70-110) mg/dL AST 46 H (14-36) U/L ALT 119 H (4-34) U/L Total Protein 6.0 L (6.3-8.2) g/dL Albumin 3.1 L (3.5-5.0) g/dL Assessment and Plan Plan: Acute hypoxic respiratory failure DVT. Multifactorial. The patient has bilateral pulm embolism and right lower extremity DVT addition to COPD exacerbation. No clear indication for COVID-19 related pneumonia. The patient is currently off Airvo and the patient is currently on high flow oxygen at 8 L Acute right lower extremity DVT Acute bilateral pulmonary embolism, currently on IV heparin Acute s COPD exacerbation COVID 19, 03/19/2024, and apparently this is the patient's second COVID-19 infection. History of recent CVA with right-sided weakness. The patient has expressive aphasia History of hypertension. History of hyperlipidemia. Obesity Plan: Condition is essentially stable and remains on oxygen 80s per minute nasal cannula Oxygenation is improved and the patient is currently on 8 L of O2 nasal cannula and Airvo has been discontinued. Discontinued IV Solu-Medrol start the patient on oral prednisone 50 mg p.o. daily Continue Eliquis 10 mg p.o. twice a day. Check CRP and LDH levels and the levels were low. D-dimer has been quite elevated Provide the patient incentive spirometer Will monitor the patient's progress closely on the medical floor. Goal is to titrate FiO2 as tolerated to maintain saturation above 90%.
[2024-03-28 06:02] LABS: Glucose,Whole Blood 135 mg/dL (70-110)
--- NOTE | 2024-03-28 07:56 | XR ---
EXAMINATION TYPE: XR chest 1V portable DATE OF EXAM: 03/28/2024 COMPARISON: 03/24/2024 HISTORY: Hypoxia TECHNIQUE: Single frontal view of the chest is obtained. FINDINGS: Increasing infiltrate within the left lung. Stable subsegmental changes medial margin righ t lung. Underlying COPD. No sizable pneumothorax. Trace amount of pleural fluid not excluded. Heart i s enlarged. Osseous structures stable. IMPRESSION: Increasing patchy infiltrate in the left lung correlate for pneumonia or asymmetric veno us congestion.
[2024-03-28] MEDS: predniSONE 50 MG TAB PO SCH (08:23)
[2024-03-28] MEDS: FUROSEMIDE 10 MG/ML 4 ML VIAL IV SCH (11:48)
[2024-03-28 12:03] LABS: Glucose,Whole Blood 135 mg/dL (70-110)
--- NOTE | 2024-03-28 14:36 | P.PN ---
Subjective Progress Note Date: 03/28/24 68-year-old female brought in by EMS, from a local care home. The patient apparently developed shortness of breath, and for that reason was sent in to be evaluated. She was in care home for rehabilitation, having recently had a stroke, with right-sided weakness. The patient apparently developed marked shortness of breath, appeared dusky, with blue lips, and saturations in the upper 70s. The patient was placed on oxygen, and EMS was called, the patient was transported here for further evaluation. She was seen in ER, room 3. Evaluation revealed evidence of bilateral pulmonary emboli. The patient recently tested positive for coronavirus infection, at the care home, on March 20. Currently she is on IV heparin, saline at 75 cc an hour, and high flow nasal O2 at 10 L. She has a history of hyperlipidemia, hypertension, CVA, and recent coronavirus infection. Current labs include a white count 8.2, hemoglobin 14.3, hematocrit 43.6, and a platelet count of 112,000. D-dimer was greater than 35. Sodium 139, potassium 5.1, chlorides 108, CO2 24, BUN 41, and creatinine 1.21. Glucose was 118. AST 47. ALT 90. Troponin was less than 0.012. Albumin was 3.9. N-terminal proBNP was normal. Chest x-ray was unremarkable. CT angiogram was positive for bilateral pulmonary emboli, with moderate burden, localized to the bilateral upper lobes, as well as in the right middle lobe. There is no evidence on CT, of right heart strain. In addition, there was moderate to advanced emphysematous changes, with some basilar atelectasis. Progress note dated March 23, 2024. The patient is seen today in ER 16, and she continues on 8 L high flow oxygen. She is receiving IV heparin. She did test positive for coronavirus, on March 19. The patient came from the care home. She is feeling better today, and feeling less short of breath. Current labs include a white count 6.7, hem oglobin 13.8, hematocrit 45.6, and a platelet count of 105,000. PTT is 84.3. Troponins were negative x 2. On today's evaluation of 03/24/2024, the patient is being seen for a follow-up that has been progressive worsening in the patient's oxygenation since yesterday. This morning, the patient is on a high flow oxygen at 40 L with an FiO2 of Hearing 70%. The patient is running a pulse ox of 97% and according to her she was dropped down to 60%. She is hemodynamically stable. She has expressive aphasia has quite difficult to communicate with the patient. She does have bilateral pulmonary embolism as discussed on a CT scan of the chest and the patient also has a positive DVT in the right mid popliteal vein extending to the calfs. Based on that, the patient was admitted on IV heparin. She also has a component of COPD exacerbation. She has extensive bilateral emphysematous changes on the CAT scan of the chest and the patient is currently on a combination of bronchodilators and IV Solu-Medrol. She also tested positive for COVID 19. Her sodium level is at 140, potassium is 4.9, bicarb is 21 BUN of 32 with a creatinine of 0.9. WBC 11.2 with a hemoglobin 12.6. The patient is not using accessory muscles of breathing. She is quite comfortable at this point in time. Echocardiogram that was done on 03/22/2024 showed a normal ejection fraction. RV was not visualized to comment on this strain pattern. On today's evaluation of 03/25/2024, the patient is being seen for a follow-up. The patient has bilateral pulm embolism and right lower extremity DVT. The patient became progressively more hypoxic and the patient had to be placed on Airvo. On today's evaluation, she remains on Airvo at 40 L with an FiO2 of 60%. The patient is pulse oximetry 95 to 98%. Will try to utilize high flow oxygen at 15 L and discontinue therefore. Less bronchospastic and wheezy on today's evaluation. Remains on DuoNeb updrafts. Remains on IV Solu-Medrol. Remains on IV heparin. IV Solu-Medrol is being administered to 40 mg every 8 hours. WBC count is 11.2 with hemoglobin 12.6 and a platelet count of 131. Those labs are from yesterday. No new labs are available from today. On 03/26/2024, the patient is being seen for a follow-up. The patient is doing well. No specific complaints. She has expressive aphasia. Unable to communicate effectively. Note that the patient was taken off the Airvo yesterday and the patient is currently on 8 L of oxygen by nasal cannula with a pulse ox of 92%. She remains on IV heparin. I am going to discontinue the IV heparin and start the patient on anticoagulation with Eliquis. She was started 2010 mg p.o. twice a day. She remains on bronchodilators. She remains on IV Solu-Medrol regarding her COPD exacerbation. No new labs are available from today. The patient is hemodynamically stable. No significant tachycardia. No fever. 03/27/2024, the patient is being seen for a follow-up. The patient is currently on 8 L of oxygen by nasal cannula. No significant interval improvement in oxygenation. I believe that the patient should be able to gradually wean off the FiO2. She remains on anticoagulation she is currently on Eliquis. She is on IV Solu-Medrol and bronchodilators. IV Solu-Medrol will be discontinued and the patient will be started on a prednisone burst taper today. She has expressive aphasia. Unable to communicate. White cell count of 12 with a hemoglobin 12.2, BUN is at 30 with a creatinine of 0.7. LFTs are unchanged. No fever. No chills. No other significant events. She is bedridden with right-sided hemiplegia and expressive aphasia related to a previous CVA. On today's evaluation of 03/28/2024, the patient is being seen for a follow-up. She remains on 8 L of oxygen by nasal cannula. A repeat chest x-ray was done today and shows a component of pulm vascular congestion and increased patchy in filtrate in the left and this could be potentially an asymmetric venous congestion. The patient remains on oral anticoagulation. The patient was taken off the IV heparin. The patient was also taken off the IV Solu-Medrol started on a prednisone burst taper. She has expressive aphasia. She is calm and comfortable. No signs of any significant respite distress. No labs are available from today. Yesterday labs were essentially within normal limits. Made recommendations to gradually wean off the FiO2 and I am going to diurese this patient with IV Lasix. Objective - Vital Signs Vital signs: Vital Signs Temp 98.6 F 03/28/24 08:21 Pulse 74 03/28/24 08:21 Resp 22 03/28/24 08:21 BP 147/69 03/28/24 08:21 Pulse Ox 91 L 03/28/24 08:21 FiO2 60 04/30/24 12:20 Intake & Output 03/27/24 03/28/24 03/28/24 18:59 06:59 18:59 Intake Total 358 240 Output Total 600 750 Balance -242 -750 240 Weight 113.398 kg Intake: Oral 358 240 Output: Urine 600 750 Other: Voiding Method External Catheter External Catheter External Catheter # Bowel Movements 1 - Exam No acute distress, oriented 3. Currently on 8 L of oxygen by nasal cannula Head exam was generally normal. There was no scleral icterus or corneal arcus. Mucous membranes were moist. , HEENT examination is grossly unremarkable. Mucous membranes are moist. No oral lesions. Neck supple. Full range of motion. No adenopathy thyromegaly or neck vein distention. Cardiovascular examination reveals regular rhythm rate. S1-S2 normal. No S3 or S4. No discernible murmur noted. Lungs reveal mild scattered rhonchi. Breath sounds equal bilaterally. No w heezes or crackles. Abdomen soft bowel sounds are heard. No masses or tenderness. Extremities are intact. No cyanosis clubbing or edema. Skin is without rash or lesion. Neurologic examination is brief but nonfocal. - Labs CBC & Chem 7: 03/27/24 08:46 03/27/24 08:46 Labs: Abnormal Lab Results - Last 24 Hours (Table) 03/27/24 03/27/24 03/27/24 Range/Units 11:51 16:41 19:41 POC Glucose (mg/dL) 131 H 189 H 171 H (70-110) mg/dL 03/28/24 Range/Units 06:01 POC Glucose (mg/dL) 135 H (70-110) mg/dL Assessment and Plan Plan: Acute hypoxic respiratory failure DVT. Multifactorial. The patient has bilateral pulm embolism and right lower extremity DVT addition to COPD exacerbation. No clear indication for COVID-19 related pneumonia. The patient is currently off Airvo and the patient is currently on high flow oxygen at 8 L, overall condition is stable and the chest x-ray from today was noted. Acute right lower extremity DVT Acute bilateral pulmonary embolism, currently on oral anticoagulation with Eliquis Acute s COPD exacerbation, currently improving and the patient remains on DuoNeb and prednisone burst taper COVID 19, 03/19/2024, and apparently this is the patient's second COVID-19 infection. History of recent CVA with right-sided weakness. The patient has expressive aphasia History of hypertension. History of hyperlipidemia. Obesity Plan: Start the patient on Lasix 40 mg IV every 12 hours. There may be some asymmet eduardo pulm vessel congestion/edema Condition is essentially stable and remains on oxygen 8 per minute nasal cannula Oxygenation is improved and the patient is currently on 8 L of O2 nasal cannula and Airvo has been discontinued. Continue prednisone 50 mg p.o. daily Continue Eliquis 10 mg p.o. twice a day. Check CRP and LDH levels and the levels were low. D-dimer has been quite elevated Provide the patient incentive spirometer Will monitor the patient's progress closely on the medical floor. Goal is to titrate FiO2 as tolerated to maintain saturation above 90%.
--- NOTE | 2024-03-28 15:29 | P.PN ---
Subjective Progress Note Date: 03/28/24 Pt is doing well, has no new complaints. Remains stable on 8L NC, saturating 91%. Plan is to titrate down oxygen as able. Pulm starting lasix 40mg IV q12h Gen: In NAD, non-toxic HEENT: normocephalic, atraumatic, hearing acuity is intant, mucous membranes moist CVS: perfusing all extremities well, no pitting edema, Respiratory: symmetric chest expansion, no accessory muscle use, GI: soft, NTTP, ND, : no suprapubic tenderness, no CVA tenderness MSK/Derm: no rashes, cyanosis Neuro: CN II-XII intact, no motor weakness, Psych: cooperative, euthymic mood, judgment and insight is intact Hospital Course: Patient is a pleasant 68-year-old female with a past medical history of hypertension, hyperlipidemia, stage IIIa CKD and recent CVA who presented for hypoxia and cyanosis. Upon arrival to the emergency department, patient underwent evaluation. Vital signs upon arrival show blood pressure 148/79, heart rate 62, respiratory rate 20, temp 98.0 F, and SpO2 of 99% on 15 L supplemental oxygen. EKG was completed showing normal sinus rhythm at 61 bpm with no noted T wave or ST abnormalities showing no signs of acute ischemia upon personal review and interpretation. Chest x-ray completed negative for acute cardiopulmonary process. Labs were completed and reviewed. CBC showing thrombocytopenia with platelet count of 112. BMP revealing mild hyperchloremia with chloride of 108 and consistent with known stage IIIa CKD with BUN of 41, creatinine of 1.21, GFR 47. Blood glucose was 118. Troponin was negative at less than 0.012. proBNP 94. D-dimer was elevated at greater than 35. CTA chest completed showing pulmonary emboli with overall moderate burden localized to the bilateral upper lobes as well as right middle lobe with no CT evidence for right heart strain at this time along with moderate to advanced emphysema and dependent opacities reported to be likely representing prominent dependent atelectasis. Patient was started on high intensity heparin infusion for treatment of PE. She was admitted under our services with consultation to pulmonology.Echocardiogram completed revealing an EF of 50 to 55%, right ventricle was not well-visualized on echocardiogram choir accompanist recommending referring to CT scan findings showing no signs of RV strain. Bilateral lower extremity Dopplers completed. Left lower extremity negative for DVT right leg positive for DVT from mid popliteal to calf veins. Assessment and Plan of Care: Acute respiratory failure with hypoxia Bilateral pulmonary emboli Right lower extremity DVT -Oxygen as needed, target saturation 92% or higher, currently at 8 L of nasal cannula -Continue apixaban -Encourage PT/OT -Pulmonology following, started lasix 40mg q12h -Albuterol as needed, encourage incentive spirometry COVID-19 infection COPD exacerbation -Solu-Medrol -No indication for antibiotics History of recent CVA with right-sided deficits Elevated liver enzymes Thrombocytopenia Hypertension Hyperlipidemia -Patient to continue daily medication regimen with aspirin 81 mg daily, amiodarone 200 mg twice daily, amlodipine 5 mg twice daily, carvedilol 25 mg twice daily, and losartan 100 mg daily. Acute kidney injury, resolved CODE STATUS: Full code DVT prophylaxis: Heparin This document was prepared using [employer] dictation software. Please allow for errors in barrel bung remover and dumper while rare they do occur. Objective - Vital Signs Vital signs: Vital Signs Temp 98.5 F 03/28/24 11:38 Pulse 69 03/28/24 11:38 Resp 22 03/28/24 11:38 BP 169/63 03/28/24 11:38 Pulse Ox 91 L 03/28/24 11:38 FiO2 60 03/25/24 12:20 Intake & Output 03/27/24 03/28/24 03/28/24 18:59 06:59 18:59 Intake Total 358 358 Output Total 600 750 Balance -242 -750 358 Weight 113.398 kg Intake: Oral 358 358 Output: Urine 600 750 Other: Voiding Method External Catheter External Catheter External Catheter # Bowel Movements 1 - Labs CBC & Chem 7: 03/27/24 08:46 03/27/24 08:46 Labs: Abnormal Lab Results - Last 24 Hours (Table) 03/27/24 03/27/24 03/28/24 Range/Units 16:41 19:41 06:01 POC Glucose (mg/dL) 189 H 171 H 135 H (70-110) mg/dL 03/28/24 Range/Units 12:01 POC Glucose (mg/dL) 135 H (70-110) mg/dL
[2024-03-28 16:16] LABS: Glucose,Whole Blood 184 mg/dL (70-110)
[2024-03-28 20:12] LABS: Glucose,Whole Blood 240 mg/dL (70-110)
[2024-03-28] MEDS: ACETAMINOPHEN TAB 325 MG TAB PO PRN (23:31)
[2024-03-29 06:22] LABS: Glucose,Whole Blood 116 mg/dL (70-110)
[2024-03-29 08:12] LABS: Basophils # (A) 0.1 k/uL (0-0.2); Basophils % (A) 0 %; Eosinophils # (A) 0.3 k/uL (0-0.7); Eosinophils % (A) 2 %; HCT 39.5 % (34.0-46.0); HGB 12.8 gm/dL (11.4-16.0); Lymphocytes # (A) 0.7 k/uL (1.0-4.8); Lymphocytes % (A) 5 %; MCH 30.3 pg (25.0-35.0); MCHC 32.3 g/dL (31.0-37.0); MCV 93.8 fL (80.0-100.0); Mean Platelet Volume 8.4; Monocytes # (A) 0.8 k/uL (0-1.0); Monocytes % (A) 7 %; Neutrophils # (A) 10.6 k/uL (1.3-7.7); Neutrophils % (A) 85 %; Platelet Count 184 k/uL (150-450); RBC 4.21 m/uL (3.80-5.40); RDW 14.9 % (11.5-15.5); WBC 12.6 k/uL (3.8-10.6)
[2024-03-29 08:37] LABS: African American GFR (CKD) >90 (>60 ml/min/1.73 sqM); Anion Gap 8 mmol/L; Blood Urea Nitrogen 41 mg/dL (7-17); Calcium 9.4 mg/dL (8.4-10.2); Carbon Dioxide 26 mmol/L (22-30); Chloride 107 mmol/L (98-107); Glucose 185 mg/dL (74-99); Non-African American GFR(CKD) 85 (>60 ml/min/1.73 sqM); Potassium 3.9 mmol/L (3.5-5.1); Sodium 141 mmol/L (137-145)
[2024-03-29 11:30] LABS: Glucose,Whole Blood 155 mg/dL (70-110)
--- NOTE | 2024-03-29 13:50 | P.PN ---
Subjective Progress Note Date: 03/29/24 Pt is doing well, has no new complaints. Remains stable on 6L NC, saturating 92%. Plan is to titrate down oxygen as able. Gen: In NAD, non-toxic HEENT: normocephalic, atraumatic, hearing acuity is intant, mucous membranes moist CVS: perfusing all extremities well, no pitting edema, Respiratory: symmetric chest expansion, no accessory muscle use, GI: soft, NTTP, ND, : no suprapubic tenderness, no CVA tenderness MSK/Derm: no rashes, cyanosis Neuro: CN II-XII intact, no motor weakness, Psych: cooperative, euthymic mood, judgment and insight is intact Hospital Course: Patient is a pleasant 68-year-old female with a past medical history of hyperte nsion, hyperlipidemia, stage IIIa CKD and recent CVA who presented for hypoxia and cyanosis. Upon arrival to the emergency department, patient underwent evaluation. Vital signs upon arrival show blood pressure 148/79, heart rate 62, respiratory rate 20, temp 98.0 F, and SpO2 of 99% on 15 L supplemental oxygen. EKG was completed showing normal sinus rhythm at 61 bpm with no noted T wave or ST abnormalities showing no signs of acute ischemia upon personal review and interpretation. Chest x-ray completed negative for acute cardiopulmonary process. Labs were completed and reviewed. CBC showing thrombocytopenia with platelet count of 112. BMP revealing mild hyperchloremia with chloride of 108 and consistent with known stage IIIa CKD with BUN of 41, creatinine of 1.21, GFR 47. Blood glucose was 118. Troponin was negative at less than 0.012. proBNP 94. D-dimer was elevated at greater than 35. CTA chest completed showing pulmonary emboli with overall moderate burden localized to the bilateral upper lobes as well as right middle lobe with no CT evidence for right heart strain at this time along with moderate to advanced emphysema and dependent opacities reported to be likely representing prominent dependent atelectasis. Patient was started on high intensity heparin infusion for treatment of PE. She was admitted under our services with consultation to pulmonology.Echocardiogram completed revealing an EF of 50 to 55%, right ventricle was not well-visualized on echocardiogram welder and fitter recommending referring to CT scan findings showing no signs of RV strain. Bilateral lower extremity Dopplers completed. Left lower extremity negative for DVT right leg positive for DVT from mid popliteal to calf veins. Assessment and Plan of Care: Acute respiratory failure with hypoxia Bilateral pulmonary emboli Right lower extremity DVT -Oxygen as needed, target saturation 92% or higher, currently at 8 L of nasal cannula -Continue apixaban -Encourage PT/OT -Pulmonology following, continue lasix 40mg q12h -Albuterol as needed, encouraged and educated on use of incentive spirometry COVID-19 infection COPD exacerbation -Solu-Medrol -No indication for antibiotics History of recent CVA with right-sided deficits Elevated liver enzymes Thrombocytopenia Hypertension Hyperlipidemia -Patient to continue daily medication regimen with aspirin 81 mg daily, amiodarone 200 mg twice daily, amlodipine 5 mg twice daily, carvedilol 25 mg twice daily, and losartan 100 mg daily. Acute kidney injury, resolved CODE STATUS: Full code DVT prophylaxis: Heparin This document was prepared using [employer] dictation software. Please allow for errors in real estate site analyst while rare they do occur. Objective - Vital Signs Vital signs: Vital Signs Temp 99.1 F 03/29/24 11:26 Pulse 71 03/29/24 11:26 Resp 20 03/29/24 11:26 BP 117/64 03/29/24 11:26 Pulse Ox 90 L 03/29/24 12:40 FiO2 60 03/25/24 12:20 Intake & Output 03/28/24 03/29/24 03/29/24 18:59 06:59 18:59 Intake Total 991 240 776 Output Total 700 1650 450 Balance 291 -1410 326 Intake: Intake, IV Titration 515 Amount Sodium Chloride 0.9% 1, 515 000 ml @ 75 mls/hr IV . [id number] [facility] Rx#:[id number] Oral 476 240 776 Output: Urine 700 1650 450 Other: Voiding Method External Catheter External Catheter External Catheter # Bowel Movements 1 - Labs CBC & Chem 7: 03/29/24 07:59 03/29/24 07:59 Labs: Abnormal Lab Results - Last 24 Hours (Table) 03/28/24 03/28/24 03/29/24 Range/Units 16:15 20:11 06:20 WBC (3.8-10.6) k/uL Neutrophils # (1.3-7.7) k/uL Lymphocytes # (1.0-4.8) k/uL BUN (7-17) mg/dL Glucose (74-99) mg/dL POC Glucose (mg/dL) 184 H 240 H 116 H (70-110) mg/dL 03/29/24 03/29/24 03/29/24 Range/Units 07:59 07:59 11:28 WBC 12.6 H (3.8-10.6) k/uL Neutrophils # 10.6 H (1.3-7.7) k/uL Lymphocytes # 0.7 L (1.0-4.8) k/uL BUN 41 H (7-17) mg/dL Glucose 185 H (74-99) mg/dL POC Glucose (mg/dL) 155 H (70-110) mg/dL
--- NOTE | 2024-03-29 13:56 | P.PN ---
Subjective Progress Note Date: 03/29/24 68-year-old female brought in by EMS, from a local senior care. The patient apparently developed shortness of breath, and for that reason was sent in to be evaluated. She was in senior care for rehabilitation, having recently had a stroke, with right-sided weakness. The patient apparently developed marked shortness of breath, appeared dusky, with blue lips, and saturations in the upper 70s. The patient was placed on oxygen, and EMS was called, the patient was transported here for further evaluation. She was seen in ER, room 3. Evaluation revealed evidence of bilateral pulmonary emboli. The patient recently tested positive for coronavirus infection, at the senior care, on March 20. Currently she is on IV heparin, saline at 75 cc an hour, and high flow nasal O2 at 10 L. She has a history of hyperlipidemia, hypertension, CVA, and recent coronavirus infection. Current labs include a white count 8.2, hemoglobin 14.3, hematocrit 43.6, and a platelet count of 112,000. D-dimer was greater than 35. Sodium 139, potassium 5.1, chlorides 108, CO2 24, BUN 41, and creatinine 1.21. Glucose was 118. AST 47. ALT 90. Troponin was less than 0.012. Albumin was 3.9. N-terminal proBNP was normal. Chest x-ray was unremarkable. CT angiogram was positive for bilateral pulmonary emboli, with moderate burden, localized to the bilateral upper lobes, as well as in the right middle lobe. There is no evidence on CT, of right heart strain. In addition, there was moderate to advanced emphysematous changes, with some basilar atelectasis. Progress note dated March 23, 2024. The patient is seen today in ER 16, and she continues on 8 L high flow oxygen. She is receiving IV heparin. She did test positive for coronavirus, on March 19. The patient came from the senior care. She is feeling better today, and feeling less short of breath. Current labs include a white count 6.7, hem oglobin 13.8, hematocrit 45.6, and a platelet count of 105,000. PTT is 84.3. Troponins were negative x 2. On today's evaluation of 03/24/2024, the patient is being seen for a follow-up that has been progressive worsening in the patient's oxygenation since yesterday. This morning, the patient is on a high flow oxygen at 40 L with an FiO2 of Hearing 70%. The patient is running a pulse ox of 97% and according to her she was dropped down to 60%. She is hemodynamically stable. She has expressive aphasia has quite difficult to communicate with the patient. She does have bilateral pulmonary embolism as discussed on a CT scan of the chest and the patient also has a positive DVT in the right mid popliteal vein extending to the calfs. Based on that, the patient was admitted on IV heparin. She also has a component of COPD exacerbation. She has extensive bilateral emphysematous changes on the CAT scan of the chest and the patient is currently on a combination of bronchodilators and IV Solu-Medrol. She also tested positive for COVID 19. Her sodium level is at 140, potassium is 4.9, bicarb is 21 BUN of 32 with a creatinine of 0.9. WBC 11.2 with a hemoglobin 12.6. The patient is not using accessory muscles of breathing. She is quite comfortable at this point in time. Echocardiogram that was done on 03/22/2024 showed a normal ejection fraction. RV was not visualized to comment on this strain pattern. On today's evaluation of 03/25/2024, the patient is being seen for a follow-up. The patient has bilateral pulm embolism and right lower extremity DVT. The patient became progressively more hypoxic and the patient had to be placed on Airvo. On today's evaluation, she remains on Airvo at 40 L with an FiO2 of 60%. The patient is pulse oximetry 95 to 98%. Will try to utilize high flow oxygen at 15 L and discontinue therefore. Less bronchospastic and wheezy on today's evaluation. Remains on DuoNeb updrafts. Remains on IV Solu-Medrol. Remains on IV heparin. IV Solu-Medrol is being administered to 40 mg every 8 hours. WBC count is 11.2 with hemoglobin 12.6 and a platelet count of 131. Those labs are from yesterday. No new labs are available from today. On 03/26/2024, the patient is being seen for a follow-up. The patient is doing well. No specific complaints. She has expressive aphasia. Unable to communicate effectively. Note that the patient was taken off the Airvo yesterday and the patient is currently on 8 L of oxygen by nasal cannula with a pulse ox of 92%. She remains on IV heparin. I am going to discontinue the IV heparin and start the patient on anticoagulation with Eliquis. She was started 2010 mg p.o. twice a day. She remains on bronchodilators. She remains on IV Solu-Medrol regarding her COPD exacerbation. No new labs are available from today. The patient is hemodynamically stable. No significant tachycardia. No fever. 03/27/2024, the patient is being seen for a follow-up. The patient is currently on 8 L of oxygen by nasal cannula. No significant interval improvement in oxygenation. I believe that the patient should be able to gradually wean off the FiO2. She remains on anticoagulation she is currently on Eliquis. She is on IV Solu-Medrol and bronchodilators. IV Solu-Medrol will be discontinued and the patient will be started on a prednisone burst taper today. She has expressive aphasia. Unable to communicate. White cell count of 12 with a hemoglobin 12.2, BUN is at 30 with a creatinine of 0.7. LFTs are unchanged. No fever. No chills. No other significant events. She is bedridden with right-sided hemiplegia and expressive aphasia related to a previous CVA. On today's evaluation of 03/28/2024, the patient is being seen for a follow-up. She remains on 8 L of oxygen by nasal cannula. A repeat chest x-ray was done today and shows a component of pulm vascular congestion and increased patchy in filtrate in the left and this could be potentially an asymmetric venous congestion. The patient remains on oral anticoagulation. The patient was taken off the IV heparin. The patient was also taken off the IV Solu-Medrol started on a prednisone burst taper. She has expressive aphasia. She is calm and comfortable. No signs of any significant respite distress. No labs are available from today. Yesterday labs were essentially within normal limits. Made recommendations to gradually wean off the FiO2 and I am going to diurese this patient with IV Lasix. 03/29/2024, the patient is being seen for a follow-up. She is currently on 7 L of oxygen by nasal cannula. No respiratory distress. She is being diuresed and the patient is producing excess amount of urine output, fluid balance is neg ative at least 1.5 L over the past 24 hours. Calm and comfortable. Remains on anticoagulation. She is currently on Eliquis. White cell count is 12.6 with a hemoglobin of 12.8 and a platelet count of 184, BUN is at 41 with a creatinine of 0.7 and a sodium levels at 141. She has expressive aphasia. No signs of a significant respiratory distress. Objective - Vital Signs Vital signs: Vital Signs Temp 99.2 F 03/29/24 10:03 Pulse 74 03/29/24 10:03 Resp 20 03/29/24 10:03 BP 149/62 03/29/24 10:03 Pulse Ox 90 L 03/29/24 10:03 FiO2 60 03/25/24 12:20 Intake & Output 03/28/24 03/29/24 03/29/24 18:59 06:59 18:59 Intake Total 991 240 658 Output Total 700 1650 350 Balance 291 -1410 308 Intake: Intake, IV Titration 515 Amount Sodium Chloride 0.9% 1, 515 000 ml @ 75 mls/hr IV . [id number] [facility] Rx#:[id number] Oral 476 240 658 Output: Urine 700 1650 350 Other: Voiding Method External Catheter External Catheter External Catheter - Exam No acute distress, oriented 3. Currently on 7 L of oxygen by nasal cannula Head exam was generally normal. There was no scleral icterus or corneal arcus. Mucous membranes were moist. , HEENT examination is grossly unremarkable. Mucous membranes are moist. No oral lesions. Neck supple. Full range of motion. No adenopathy thyromegaly or neck vein distention. Cardiovascular examination reveals regular rhythm rate. S1-S2 normal. No S3 or S4. No discernible murmur noted. Lungs reveal mild scattered rhonchi. Breath sounds equal bilaterally. No w heezes or crackles. Abdomen soft bowel sounds are heard. No masses or tenderness. Extremities are intact. No cyanosis clubbing or edema. Skin is without rash or lesion. Neurologic examination is brief but nonfocal. - Labs CBC & Chem 7: 03/29/24 07:59 03/29/24 07:59 Labs: Abnormal Lab Results - Last 24 Hours (Table) 03/28/24 03/28/24 03/28/24 Range/Units 12:01 16:15 20:11 WBC (3.8-10.6) k/uL Neutrophils # (1.3-7.7) k/uL Lymphocytes # (1.0-4.8) k/uL BUN (7-17) mg/dL Glucose (74-99) mg/dL POC Glucose (mg/dL) 135 H 184 H 240 H (70-110) mg/dL 03/29/24 03/29/24 03/29/24 Range/Units 06:20 07:59 07:59 WBC 12.6 H (3.8-10.6) k/uL Neutrophils # 10.6 H (1.3-7.7) k/uL Lymphocytes # 0.7 L (1.0-4.8) k/uL BUN 41 H (7-17) mg/dL Glucose 185 H (74-99) mg/dL POC Glucose (mg/dL) 116 H (70-110) mg/dL Assessment and Plan Plan: Acute hypoxic respiratory failure DVT. Multifactorial. The patient has bilateral pulm embolism and right lower extremity DVT addition to COPD exacerbation. No clear indication for COVID-19 related pneumonia. The patient is currently off Airvo and the patient is currently on high flow oxygen at 7 L, overall condition is stable and the chest x-ray from today was noted. Diuretics was started yesterday and the patient remains in negative fluid balance for now. Acute right lower extremity DVT Acute bilateral pulmonary embolism, currently on oral anticoagulation with Eliquis Acute s COPD exacerbation, currently improving and the patient remains on DuoNeb and prednisone burst taper COVID 19, 03/19/2024, and apparently this is the patient's second COVID-19 infection. History of recent CVA with right-sided weakness. The patient has expressive a phasia History of hypertension. History of hyperlipidemia. Obesity Plan: Continue, the patient is negative fluid balance. Repeat chest x-ray will be obtained for tomorrow. The patient on Lasix 40 mg IV every 12 hours. There may be some asymmetric pulm vessel congestion/edema Condition is essentially stable and remains on oxygen 7 per minute nasal cannula Oxygenation is improved and the patient is currently on 7 L of O2 nasal cannula and Airvo has been discontinued. Continue prednisone 50 mg p.o. daily Continue Eliquis 10 mg p.o. twice a day. Check CRP and LDH levels and the levels were low. D-dimer has been quite elevated Provide the patient incentive spirometer Will monitor the patient's progress closely on the medical floor. Goal is to titrate FiO2 as tolerated to maintain saturation above 90%.
[2024-03-30] MEDS ORDERED: MENTHOL-ZINC OXIDE OINT 113 GM TUBE TOPICAL PRN (11:50)
--- NOTE | 2024-03-30 11:52 | P.PN ---
Subjective Progress Note Date: 03/30/24 Pt is doing well, has no new complaints. Remains stable on 6L NC, saturating 92%. Plan is to titrate down oxygen as able. Gen: In NAD, non-toxic HEENT: normocephalic, atraumatic, hearing acuity is intant, mucous membranes moist CVS: perfusing all extremities well, no pitting edema, Respiratory: symmetric chest expansion, no accessory muscle use, GI: soft, NTTP, ND, : no suprapubic tenderness, no CVA tenderness MSK/Derm: no rashes, cyanosis Neuro: CN II-XII intact, no motor weakness, Psych: cooperative, euthymic mood, judgment and insight is intact Hospital Course: Patient is a pleasant 68-year-old female with a past medical history of hyperte nsion, hyperlipidemia, stage IIIa CKD and recent CVA who presented for hypoxia and cyanosis. Upon arrival to the emergency department, patient underwent evaluation. Vital signs upon arrival show blood pressure 148/79, heart rate 62, respiratory rate 20, temp 98.0 F, and SpO2 of 99% on 15 L supplemental oxygen. EKG was completed showing normal sinus rhythm at 61 bpm with no noted T wave or ST abnormalities showing no signs of acute ischemia upon personal review and interpretation. Chest x-ray completed negative for acute cardiopulmonary process. Labs were completed and reviewed. CBC showing thrombocytopenia with platelet count of 112. BMP revealing mild hyperchloremia with chloride of 108 and consistent with known stage IIIa CKD with BUN of 41, creatinine of 1.21, GFR 47. Blood glucose was 118. Troponin was negative at less than 0.012. proBNP 94. D-dimer was elevated at greater than 35. CTA chest completed showing pulmonary emboli with overall moderate burden localized to the bilateral upper lobes as well as right middle lobe with no CT evidence for right heart strain at this time along with moderate to advanced emphysema and dependent opacities reported to be likely representing prominent dependent atelectasis. Patient was started on high intensity heparin infusion for treatment of PE. She was admitted under our services with consultation to pulmonology.Echocardiogram completed revealing an EF of 50 to 55%, right ventricle was not well-visualized on echocardiogram energy conservation director recommending referring to CT scan findings showing no signs of RV strain. Bilateral lower extremity Dopplers completed. Left lower extremity negative for DVT right leg positive for DVT from mid popliteal to calf veins. Assessment and Plan of Care: Acute respiratory failure with hypoxia Bilateral pulmonary emboli Right lower extremity DVT -Oxygen as needed, target saturation 92% or higher, currently at 8 L of nasal cannula -Continue apixaban -Encourage PT/OT -Pulmonology following, continue lasix 40mg q12h -Albuterol as needed, encouraged and educated on use of incentive spirometry COVID-19 infection COPD exacerbation -Solu-Medrol -No indication for antibiotics History of recent CVA with right-sided deficits Elevated liver enzymes Thrombocytopenia Hypertension Hyperlipidemia -Patient to continue daily medication regimen with aspirin 81 mg daily, amiodarone 200 mg twice daily, amlodipine 5 mg twice daily, carvedilol 25 mg twice daily, and losartan 100 mg daily. Acute kidney injury, resolved CODE STATUS: Full code DVT prophylaxis: Heparin This document was prepared using [employer] dictation software. Please allow for errors in sales engineer engineered products while rare they do occur. Objective - Vital Signs Vital signs: Vital Signs Temp 98.0 F 03/30/24 11:19 Pulse 69 03/30/24 11:19 Resp 18 03/30/24 11:19 BP 146/67 03/30/24 11:19 Pulse Ox 90 L 03/30/24 11:19 FiO2 60 03/25/24 12:20 Intake & Output 03/29/24 03/30/24 03/30/24 18:59 06:59 18:59 Intake Total 1494 240 360 Output Total 1250 825 Balance 244 -585 360 Intake: Intake, IV Titration 240 240 Amount Sodium Chloride 0.9% 1, 240 240 000 ml @ 75 mls/hr IV . [id number] [facility] Rx#:[id number] Oral 1254 240 120 Output: Urine 1250 825 Other: Voiding Method External Catheter External Catheter External Catheter # Bowel Movements 1 1 - Labs CBC & Chem 7: 03/29/24 07:59 03/29/24 07:59
--- NOTE | 2024-03-30 12:08 | P.PN ---
Subjective Progress Note Date: 03/30/24 68-year-old female brought in by EMS, from a local assisted. The patient apparently developed shortness of breath, and for that reason was sent in to be evaluated. She was in assisted for rehabilitation, having recently had a stroke, with right-sided weakness. The patient apparently developed marked shortness of breath, appeared dusky, with blue lips, and saturations in the upper 70s. The patient was placed on oxygen, and EMS was called, the patient was transported here for further evaluation. She was seen in ER, room 3. Evaluation revealed evidence of bilateral pulmonary emboli. The patient recently tested positive for coronavirus infection, at the assisted, on March 20. Currently she is on IV heparin, saline at 75 cc an hour, and high flow nasal O2 at 10 L. She has a history of hyperlipidemia, hypertension, CVA, and recent coronavirus infection. Current labs include a white count 8.2, hemoglobin 14.3, hematocrit 43.6, and a platelet count of 112,000. D-dimer was greater than 35. Sodium 139, potassium 5.1, chlorides 108, CO2 24, BUN 41, and creatinine 1.21. Glucose was 118. AST 47. ALT 90. Troponin was less than 0.012. Albumin was 3.9. N-terminal proBNP was normal. Chest x-ray was unremarkable. CT angiogram was positive for bilateral pulmonary emboli, with moderate burden, localized to the bilateral upper lobes, as well as in the right middle lobe. There is no evidence on CT, of right heart strain. In addition, there was moderate to advanced emphysematous changes, with some basilar atelectasis. Progress note dated March 23, 2024. The patient is seen today in ER 16, and she continues on 8 L high flow oxygen. She is receiving IV heparin. She did test positive for coronavirus, on March 19. The patient came from the assisted. She is feeling better today, and feeling less short of breath. Current labs include a white count 6.7, hem oglobin 13.8, hematocrit 45.6, and a platelet count of 105,000. PTT is 84.3. Troponins were negative x 2. On today's evaluation of 03/24/2024, the patient is being seen for a follow-up that has been progressive worsening in the patient's oxygenation since yesterday. This morning, the patient is on a high flow oxygen at 40 L with an FiO2 of Hearing 70%. The patient is running a pulse ox of 97% and according to her she was dropped down to 60%. She is hemodynamically stable. She has expressive aphasia has quite difficult to communicate with the patient. She does have bilateral pulmonary embolism as discussed on a CT scan of the chest and the patient also has a positive DVT in the right mid popliteal vein extending to the calfs. Based on that, the patient was admitted on IV heparin. She also has a component of COPD exacerbation. She has extensive bilateral emphysematous changes on the CAT scan of the chest and the patient is currently on a combination of bronchodilators and IV Solu-Medrol. She also tested positive for COVID 19. Her sodium level is at 140, potassium is 4.9, bicarb is 21 BUN of 32 with a creatinine of 0.9. WBC 11.2 with a hemoglobin 12.6. The patient is not using accessory muscles of breathing. She is quite comfortable at this point in time. Echocardiogram that was done on 03/22/2024 showed a normal ejection fraction. RV was not visualized to comment on this strain pattern. On today's evaluation of 03/25/2024, the patient is being seen for a follow-up. The patient has bilateral pulm embolism and right lower extremity DVT. The patient became progressively more hypoxic and the patient had to be placed on Airvo. On today's evaluation, she remains on Airvo at 40 L with an FiO2 of 60%. The patient is pulse oximetry 95 to 98%. Will try to utilize high flow oxygen at 15 L and discontinue therefore. Less bronchospastic and wheezy on today's evaluation. Remains on DuoNeb updrafts. Remains on IV Solu-Medrol. Remains on IV heparin. IV Solu-Medrol is being administered to 40 mg every 8 hours. WBC count is 11.2 with hemoglobin 12.6 and a platelet count of 131. Those labs are from yesterday. No new labs are available from today. On 03/26/2024, the patient is being seen for a follow-up. The patient is doing well. No specific complaints. She has expressive aphasia. Unable to communicate effectively. Note that the patient was taken off the Airvo yesterday and the patient is currently on 8 L of oxygen by nasal cannula with a pulse ox of 92%. She remains on IV heparin. I am going to discontinue the IV heparin and start the patient on anticoagulation with Eliquis. She was started 2010 mg p.o. twice a day. She remains on bronchodilators. She remains on IV Solu-Medrol regarding her COPD exacerbation. No new labs are available from today. The patient is hemodynamically stable. No significant tachycardia. No fever. 03/27/2024, the patient is being seen for a follow-up. The patient is currently on 8 L of oxygen by nasal cannula. No significant interval improvement in oxygenation. I believe that the patient should be able to gradually wean off the FiO2. She remains on anticoagulation she is currently on Eliquis. She is on IV Solu-Medrol and bronchodilators. IV Solu-Medrol will be discontinued and the patient will be started on a prednisone burst taper today. She has expressive aphasia. Unable to communicate. White cell count of 12 with a hemoglobin 12.2, BUN is at 30 with a creatinine of 0.7. LFTs are unchanged. No fever. No chills. No other significant events. She is bedridden with right-sided hemiplegia and expressive aphasia related to a previous CVA. On today's evaluation of 03/28/2024, the patient is being seen for a follow-up. She remains on 8 L of oxygen by nasal cannula. A repeat chest x-ray was done today and shows a component of pulm vascular congestion and increased patchy in filtrate in the left and this could be potentially an asymmetric venous congestion. The patient remains on oral anticoagulation. The patient was taken off the IV heparin. The patient was also taken off the IV Solu-Medrol started on a prednisone burst taper. She has expressive aphasia. She is calm and comfortable. No signs of any significant respite distress. No labs are available from today. Yesterday labs were essentially within normal limits. Made recommendations to gradually wean off the FiO2 and I am going to diurese this patient with IV Lasix. 03/29/2024, the patient is being seen for a follow-up. She is currently on 7 L of oxygen by nasal cannula. No respiratory distress. She is being diuresed and the patient is producing excess amount of urine output, fluid balance is neg ative at least 1.5 L over the past 24 hours. Calm and comfortable. Remains on anticoagulation. She is currently on Eliquis. White cell count is 12.6 with a hemoglobin of 12.8 and a platelet count of 184, BUN is at 41 with a creatinine of 0.7 and a sodium levels at 141. She has expressive aphasia. No signs of a significant respiratory distress. 03/30/2024, the patient is being seen for a follow-up. Having difficulty in weaning down FiO2 any further. She has chronic cyanosis in her lips. I suspect this hypoxemia is essentially chronic. She is currently on 5 L with a pulse ox of 86%. Placed back on 6 L. She has diuresed adequately with IV Lasix and the patient will be switched to oral Lasix. The patient remains anticoagulation with Eliquis. The patient is also on prednisone regarding a stroke exacerbation she remains on bronchodilators. No other new complaints otherwise for now. The WBC count 12.6 with hemoglobin 12.8. She gets 41 with a creatinine of 0.7 and sodium is at 141. She has been negative fluid balance over the past several days. Repeat chest x-ray will be obtained in a.m. Objective - Vital Signs Vital signs: Vital Signs Temp 98.7 F 03/30/24 07:47 Pulse 78 03/30/24 07:47 Resp 18 03/30/24 07:47 BP 145/63 03/30/24 07:47 Pulse Ox 90 L 03/30/24 09:19 FiO2 60 03/25/24 12:20 Intake & Output 03/29/24 03/30/24 03/30/24 18:59 06:59 18:59 Intake Total 1494 240 360 Output Total 1250 825 Balance 244 -585 360 Intake: Intake, IV Titration 240 240 Amount Sodium Chloride 0.9% 1, 240 240 000 ml @ 75 mls/hr IV . [id number] [facility] Rx#:[id number] Oral 1254 240 120 Output: Urine 1250 825 Other: Voiding Method External Catheter External Catheter External Catheter # Bowel Movements 1 1 - Exam No acute distress, oriented 3. Currently on 7 L of oxygen by nasal cannula Head exam was generally normal. There was no scleral icterus or corneal arcus. Mucous membranes were moist. , HEENT examination is grossly unremarkable. Mucous membranes are moist. No oral lesions. Neck supple. Full range of motion. No adenopathy thyromegaly or neck vein distention. Cardiovascular examination reveals regular rhythm rate. S1-S2 normal. No S3 or S4. No discernible murmur noted. Lungs reveal mild scattered rhonchi. Breath sounds equal bilaterally. No wheezes or crackles. Abdomen soft bowel sounds are heard. No masses or tenderness. Extremities are intact. No cyanosis clubbing or edema. Skin is without rash or lesion. Neurologic examination is brief but nonfocal. - Labs CBC & Chem 7: 03/29/24 07:59 03/29/24 07:59 Labs: Abnormal Lab Results - Last 24 Hours (Table) 03/29/24 Range/Units 11:28 POC Glucose (mg/dL) 155 H (70-110) mg/dL Assessment and Plan Plan: Acute hypoxic respiratory failure DVT. Multifactorial. The patient has bilateral pulm embolism and right lower extremity DVT addition to COPD exacerbation. No clear indication for COVID-19 related pneumonia. The patient is currently off Airvo and the patient is currently on high flow oxygen at 6 L, overall condition is stable and the chest, possibly asymmetric pulm edema the patient was diuresed with limited improvement in oxygenation. Suspect her hyp oxemia is essentially chronic. She has chronic cyanosis. Acute right lower extremity DVT Acute bilateral pulmonary embolism, currently on oral anticoagulation with Eliquis Acute s COPD exacerbation, currently improving and the patient remains on DuoNeb and prednisone burst taper COVID 19, 03/19/2024, and apparently this is the patient's second COVID-19 infection. History of recent CVA with right-sided weakness. The patient has expressive aphasia History of hypertension. History of hyperlipidemia. Obesity Plan: Continue, the patient is negative fluid balance. Repeat chest x-ray will be obtained for tomorrow. The patient was switched to oral Lasix. Condition is essentially stable and remains on oxygen 6 per minute nasal cannula Oxygenation is improved and the patient is currently on 6 L of O2 nasal cannula and Airvo has been discontinued. Continue prednisone 50 mg p.o. daily Continue Eliquis 10 mg p.o. twice a day. Check CRP and LDH levels and the levels were low. D-dimer has been quite elevated Provide the patient incentive spirometer Will monitor the patient's progress closely on the medical floor. Goal is to titrate FiO2 as tolerated to maintain saturation above 90%.
[2024-03-30 18:40] LABS: Appearance,Urine Cloudy (Clear); Bacteria,Urine Moderate /hpf; Bilirubin,Urine Negative (Negative); Blood,Urine Moderate (Negative); Color,Urine Light Yellow; Glucose,Urine (UA) Negative (Negative); Ketones,Urine Negative (Negative); Leukocyte Esterase,Urine Large (Negative); Nitrite,Urine Positive (Negative); PH, Urine 8.5 (5.0-8.0); Protein,Urine Trace (Negative); RBC,Urine 5 /hpf (0-5); Specific Gravity,Urine 1.016 (1.001-1.035); Squamous Epithelial Cell,Urine 1 /hpf (0-4); Uric Acid Crystals,Urine Few /hpf; Urobilinogen,Urine <2.0 mg/dL (<2.0); WBC,Urine 25 /hpf (0-5)
--- NOTE | 2024-03-31 07:46 | XR ---
EXAMINATION TYPE: XR chest 1V DATE OF EXAM: 03/31/2024 COMPARISON: 03/28/2024 HISTORY: Pneumonia TECHNIQUE: Single frontal view of the chest is obtained. FINDINGS: Stable infiltrate within the left lung. Stable subsegmental changes medial margin right aundrea ng. Underlying COPD. No sizable pneumothorax. Tiny bilateral pleural effusions. Heart is enlarged. Os seous structures stable. IMPRESSION: Stable left-sided infiltrate and tiny bilateral pleural effusions.
[2024-03-31] MEDS: FUROSEMIDE 40 MG TAB PO SCH (09:06)
--- NOTE | 2024-03-31 13:31 | P.PN ---
Subjective Progress Note Date: 03/31/24 68-year-old female brought in by EMS, from a local snf. The patient apparently developed shortness of breath, and for that reason was sent in to be evaluated. She was in snf for rehabilitation, having recently had a stroke, with right-sided weakness. The patient apparently developed marked shortness of breath, appeared dusky, with blue lips, and saturations in the upper 70s. The patient was placed on oxygen, and EMS was called, the patient was transported here for further evaluation. She was seen in ER, room 3. Evaluation revealed evidence of bilateral pulmonary emboli. The patient recently tested positive for coronavirus infection, at the snf, on March 20. Currently she is on IV heparin, saline at 75 cc an hour, and high flow nasal O2 at 10 L. She has a history of hyperlipidemia, hypertension, CVA, and recent coronavirus infection. Current labs include a white count 8.2, hemoglobin 14.3, hematocrit 43.6, and a platelet count of 112,000. D-dimer was greater than 35. Sodium 139, potassium 5.1, chlorides 108, CO2 24, BUN 41, and creatinine 1.21. Glucose was 118. AST 47. ALT 90. Troponin was less than 0.012. Albumin was 3.9. N-terminal proBNP was normal. Chest x-ray was unremarkable. CT angiogram was positive for bilateral pulmonary emboli, with moderate burden, localized to the bilateral upper lobes, as well as in the right middle lobe. There is no evidence on CT, of right heart strain. In addition, there was moderate to advanced emphysematous changes, with some basilar atelectasis. Progress note dated March 23, 2024. The patient is seen today in ER 16, and she continues on 8 L high flow oxygen. She is receiving IV heparin. She did test positive for coronavirus, on March 19. The patient came from the snf. She is feeling better today, and feeling less short of breath. Current labs include a white count 6.7, hemo globin 13.8, hematocrit 45.6, and a platelet count of 105,000. PTT is 84.3. Troponins were negative x 2. On today's evaluation of 03/24/2024, the patient is being seen for a follow-up that has been progressive worsening in the patient's oxygenation since yesterday. This morning, the patient is on a high flow oxygen at 40 L with an FiO2 of Hearing 70%. The patient is running a pulse ox of 97% and according to her she was dropped down to 60%. She is hemodynamically stable. She has expressive aphasia has quite difficult to communicate with the patient. She does have bilateral pulmonary embolism as discussed on a CT scan of the chest and the patient also has a positive DVT in the right mid popliteal vein extending to the calfs. Based on that, the patient was admitted on IV heparin. She also has a component of COPD exacerbation. She has extensive bilateral emphysematous changes on the CAT scan of the chest and the patient is currently on a combination of bronchodilators and IV Solu-Medrol. She also tested positive for COVID 19. Her sodium level is at 140, potassium is 4.9, bicarb is 21 BUN of 32 with a creatinine of 0.9. WBC 11.2 with a hemoglobin 12.6. The patient is not using accessory muscles of breathing. She is quite comfortable at this point in time. Echocardiogram that was done on 03/22/2024 showed a normal ejection fraction. RV was not visualized to comment on this strain pattern. On today's evaluation of 03/25/2024, the patient is being seen for a follow-up. The patient has bilateral pulm embolism and right lower extremity DVT. The patient became progressively more hypoxic and the patient had to be placed on Airvo. On today's evaluation, she remains on Airvo at 40 L with an FiO2 of 60%. The patient is pulse oximetry 95 to 98%. Will try to utilize high flow oxygen at 15 L and discontinue therefore. Less bronchospastic and wheezy on today's e valuation. Remains on DuoNeb updrafts. Remains on IV Solu-Medrol. Remains on IV heparin. IV Solu-Medrol is being administered to 40 mg every 8 hours. WBC count is 11.2 with hemoglobin 12.6 and a platelet count of 131. Those labs are from yesterday. No new labs are available from today. On 03/26/2024, the patient is being seen for a follow-up. The patient is doing well. No specific complaints. She has expressive aphasia. Unable to communicate effectively. Note that the patient was taken off the Airvo yesterday and the patient is currently on 8 L of oxygen by nasal cannula with a pulse ox of 92%. She remains on IV heparin. I am going to discontinue the IV heparin and start the patient on anticoagulation with Eliquis. She was started 2010 mg p.o. twice a day. She remains on bronchodilators. She remains on IV Solu-Medrol regarding her COPD exacerbation. No new labs are available from today. The patient is hemodynamically stable. No significant tachycardia. No fever. 03/27/2024, the patient is being seen for a follow-up. The patient is currently on 8 L of oxygen by nasal cannula. No significant interval improvement in oxygenation. I believe that the patient should be able to gradually wean off the FiO2. She remains on anticoagulation she is currently on Eliquis. She is on IV Solu-Medrol and bronchodilators. IV Solu-Medrol will be discontinued and the patient will be started on a prednisone burst taper today. She has expressive aphasia. Unable to communicate. White cell count of 12 with a hemoglobin 12.2, BUN is at 30 with a creatinine of 0.7. LFTs are unchanged. No fever. No chills. No other significant events. She is bedridden with right-sided hemiplegia and expressive aphasia related to a previous CVA. On today's evaluation of 03/28/2024, the patient is being seen for a follow-up. She remains on 8 L of oxygen by nasal cannula. A repeat chest x-ray was done today and shows a component of pulm vascular congestion and increased patchy inf iltrate in the left and this could be potentially an asymmetric venous congestion. The patient remains on oral anticoagulation. The patient was taken off the IV heparin. The patient was also taken off the IV Solu-Medrol started on a prednisone burst taper. She has expressive aphasia. She is calm and comfortable. No signs of any significant respite distress. No labs are available from today. Yesterday labs were essentially within normal limits. Made recommendations to gradually wean off the FiO2 and I am going to diurese this patient with IV Lasix. 03/29/2024, the patient is being seen for a follow-up. She is currently on 7 L of oxygen by nasal cannula. No respiratory distress. She is being diuresed and the patient is producing excess amount of urine output, fluid balance is nega tive at least 1.5 L over the past 24 hours. Calm and comfortable. Remains on anticoagulation. She is currently on Eliquis. White cell count is 12.6 with a hemoglobin of 12.8 and a platelet count of 184, BUN is at 41 with a creatinine of 0.7 and a sodium levels at 141. She has expressive aphasia. No signs of a significant respiratory distress. 03/30/2024, the patient is being seen for a follow-up. Having difficulty in weaning down FiO2 any further. She has chronic cyanosis in her lips. I suspect this hypoxemia is essentially chronic. She is currently on 5 L with a pulse ox of 86%. Placed back on 6 L. She has diuresed adequately with IV Lasix and the patient will be switched to oral Lasix. The patient remains anticoagulation with Eliquis. The patient is also on prednisone regarding a stroke exacerbation she remains on bronchodilators. No other new complaints otherwise for now. The WBC count 12.6 with hemoglobin 12.8. She gets 41 with a creatinine of 0.7 and sodium is at 141. She has been negative fluid balance over the past several days. Repeat chest x-ray will be obtained in a.m. The patient is seen today March 31, 2024 in follow-up on the regular medical floor. She is resting in bed. She is still on 6 L high flow nasal cannula. Follow-up chest x-ray continues show infiltrate of the left lung base is stable with tiny bilateral pleural effusions. She remains on prednisone. Anticoagulated with Eliquis. Remains on oral diuretics. Objective - Vital Signs Vital signs: Vital Signs Temp 98.4 F 03/31/24 08:00 Pulse 63 03/31/24 08:00 Resp 17 03/31/24 08:00 BP 150/63 03/31/24 08:00 Pulse Ox 90 L 03/31/24 08:00 FiO2 60 03/25/24 12:20 Intake & Output 03/30/24 03/31/24 03/31/24 18:59 06:59 18:59 Intake Total 420 360 Output Total 200 Balance 420 160 Intake: Intake, IV Titration 240 Amount Sodium Chloride 0.9% 1, 240 000 ml @ 75 mls/hr IV . [id number] [facility] Rx#:[id number] Oral 180 360 Output: Urine 200 Other: Voiding Method External Catheter External Catheter # Bowel Movements 1 - Exam A 68-year-old female patient. No acute distress, oriented 3. Currently on 6 L of oxygen by nasal cannula Head exam was generally normal. There was no scleral icterus or corneal arcus. Mucous membranes were moist. HEENT examination is grossly unremarkable. Mucous membranes are moist. No oral lesions. Neck supple. Full range of motion. No adenopathy thyromegaly or neck vein distention. Cardiovascular examination reveals regular rhythm rate. S1-S2 normal. No S3 or S4. No discernible murmur noted. Lungs reveal mild scattered rhonchi. Breath sounds equal bilaterally. No wheezes or crackles. Abdomen soft bowel sounds are heard. No masses or tenderness. Extremities are intact. No cyanosis clubbing or edema. Skin is without rash or lesion. Neurologic examination is brief but nonfocal. - Labs CBC & Chem 7: 03/29/24 07:59 03/29/24 07:59 Labs: Abnormal Lab Results - Last 24 Hours (Table) 03/30/24 Range/Units 18:24 Urine Appearance Cloudy H (Clear) Urine pH 8.5 H (5.0-8.0) Urine Protein Trace H (Negative) Urine Blood Moderate H (Negative) Urine Nitrite Positive H (Negative) Ur Leukocyte Esterase Large H (Negative) Urine WBC 25 H (0-5) /hpf Uric Acid Crystals Few H (None) /hpf Urine Bacteria Moderate H (None) /hpf Assessment and Plan Assessment: Acute hypoxic respiratory failure DVT. Multifactorial. The patient has bilateral pulm embolism and right lower extremity DVT addition to COPD exacerbation. No clear indication for COVID-19 related pneumonia. The patient is currently off Airvo and the patient is currently on high flow oxygen at 6 L, overall condition is stable and the chest, possibly asymmetric pulm edema the patient was diuresed with limited improvement in oxygenation. Suspect her hypoxemia is essentially chronic. She has chronic cyanosis. Acute right lower extremity DVT Acute bilateral pulmonary embolism, currently on oral anticoagulation with Eliquis Acute s COPD exacerbation, currently improving and the patient remains on DuoNeb and prednisone burst taper COVID 19, 03/19/2024, and apparently this is the patient's second COVID-19 infection. History of recent CVA with right-sided weakness. The patient has expressive aphasia History of hypertension. History of hyperlipidemia. Obesity Plan: The patient was seen and evaluated Chest x-ray, labs and medications reviewed Titrate down the FiO2 as tolerated Increase her activity as tolerated Remains on Eliquis Plan is to return to [facility] at discharge I have personally seen and examined the patient, performed the documentation and the assessment and plan as written. Number of minutes spent on the visit: 10.
--- NOTE | 2024-03-31 16:03 | P.PN ---
Subjective Progress Note Date: 03/31/24 Pt is doing well, has no new complaints. Remains stable on 6L NC, saturating 92%. Plan is to titrate down oxygen as able. Gen: In NAD, non-toxic HEENT: normocephalic, atraumatic, hearing acuity is intant, mucous membranes moist CVS: perfusing all extremities well, no pitting edema, Respiratory: symmetric chest expansion, no accessory muscle use, GI: soft, NTTP, ND, : no suprapubic tenderness, no CVA tenderness MSK/Derm: no rashes, cyanosis Neuro: CN II-XII intact, no motor weakness, Psych: cooperative, euthymic mood, judgment and insight is intact Hospital Course: Patient is a pleasant 68-year-old female with a past medical history of hyperte nsion, hyperlipidemia, stage IIIa CKD and recent CVA who presented for hypoxia and cyanosis. Upon arrival to the emergency department, patient underwent evaluation. Vital signs upon arrival show blood pressure 148/79, heart rate 62, respiratory rate 20, temp 98.0 F, and SpO2 of 99% on 15 L supplemental oxygen. EKG was completed showing normal sinus rhythm at 61 bpm with no noted T wave or ST abnormalities showing no signs of acute ischemia upon personal review and interpretation. Chest x-ray completed negative for acute cardiopulmonary process. Labs were completed and reviewed. CBC showing thrombocytopenia with platelet count of 112. BMP revealing mild hyperchloremia with chloride of 108 and consistent with known stage IIIa CKD with BUN of 41, creatinine of 1.21, GFR 47. Blood glucose was 118. Troponin was negative at less than 0.012. proBNP 94. D-dimer was elevated at greater than 35. CTA chest completed showing pulmonary emboli with overall moderate burden localized to the bilateral upper lobes as well as right middle lobe with no CT evidence for right heart strain at this time along with moderate to advanced emphysema and dependent opacities reported to be likely representing prominent dependent atelectasis. Patient was started on high intensity heparin infusion for treatment of PE. She was admitted under our services with consultation to pulmonology.Echocardiogram completed revealing an EF of 50 to 55%, right ventricle was not well-visualized on echocardiogram mechanism inspector recommending referring to CT scan findings showing no signs of RV strain. Bilateral lower extremity Dopplers completed. Left lower extremity negative for DVT right leg positive for DVT from mid popliteal to calf veins. Assessment and Plan of Care: Acute respiratory failure with hypoxia Bilateral pulmonary emboli Right lower extremity DVT -Oxygen as needed, target saturation 92% or higher, currently at 8 L of nasal cannula -Continue apixaban -Encourage PT/OT -Pulmonology following, continue lasix 40mg q12h -Albuterol as needed, encouraged and educated on use of incentive spirometry COVID-19 infection COPD exacerbation -Solu-Medrol -No indication for antibiotics History of recent CVA with right-sided deficits Elevated liver enzymes Thrombocytopenia Hypertension Hyperlipidemia -Patient to continue daily medication regimen with aspirin 81 mg daily, amiodarone 200 mg twice daily, amlodipine 5 mg twice daily, carvedilol 25 mg twice daily, and losartan 100 mg daily. Acute kidney injury, resolved CODE STATUS: Full code DVT prophylaxis: Heparin This document was prepared using [employer] dictation software. Please allow for errors in ship erector while rare they do occur. Objective - Vital Signs Vital signs: Vital Signs Temp 98.1 F 03/31/24 14:00 Pulse 56 L 03/31/24 14:00 Resp 18 03/31/24 14:00 BP 130/67 03/31/24 14:00 Pulse Ox 92 L 03/31/24 14:00 FiO2 60 03/25/24 12:20 Intake & Output 03/30/24 03/31/24 03/31/24 18:59 06:59 18:59 Intake Total 420 360 Output Total 200 500 Balance 420 160 -500 Intake: Intake, IV Titration 240 Amount Sodium Chloride 0.9% 1, 240 000 ml @ 75 mls/hr IV . [id number] [facility] Rx#:[id number] Oral 180 360 Output: Urine 200 500 Other: Voiding Method External Catheter External Catheter # Bowel Movements 1 - Labs CBC & Chem 7: 03/29/24 07:59 03/29/24 07:59 Labs: Abnormal Lab Results - Last 24 Hours (Table) 03/30/24 Range/Units 18:24 Urine Appearance Cloudy H (Clear) Urine pH 8.5 H (5.0-8.0) Urine Protein Trace H (Negative) Urine Blood Moderate H (Negative) Urine Nitrite Positive H (Negative) Ur Leukocyte Esterase Large H (Negative) Urine WBC 25 H (0-5) /hpf Uric Acid Crystals Few H (None) /hpf Urine Bacteria Moderate H (None) /hpf
--- NOTE | 2024-04-01 11:15 | P.PN ---
Subjective Progress Note Date: 04/01/24 68-year-old female with a past medical history of hypertension, hyperlipidemia, stage IIIa CKD and recent CVA who presented for hypoxia and cyanosis. Upon arrival to the emergency department, patient underwent evaluation. Vital signs upon arrival show blood pressure 148/79, heart rate 62, respiratory rate 20, temp 98.0 F, and SpO2 of 99% on 15 L supplemental oxygen. EKG was completed showing normal sinus rhythm at 61 bpm with no noted T wave or ST abnormalities. Chest x-ray negative for acute cardiopulmonary process. CBC showing platelet count of 112. BMP chloride of 108, BUN of 41, creatinine of 1.21, GFR 47. Blood glucose was 118. Troponin was negative at less than 0.012. proBNP 94. D-dimer was elevated at greater than 35. CTA chest completed showing pulmonary emboli with overall moderate burden localized to the bilateral upper lobes as well as right middle lobe with no CT evidence for right heart strain at this time along with moderate to advanced emphysema and dependent opacities reported to be likely representing prominent dependent atelectasis. Patient was started on high intensity heparin infusion for treatment of PE. She was admitted under our services with consultation to pulmonology.Echocardiogram completed revealing an EF of 50 to 55%, right ventricle was not well-visualized on echocardiogram lightout examiner recommending referring to CT scan findings showing no signs of RV strain. Bilateral lower extremity Dopplers completed. Left lower extremity negative for DVT right leg positive for DVT from mid popliteal to calf veins. 04/01 Patient was seen and examined. Currently on 5L NC saturating 91%. Breathing improved. No chest pain. General: non toxic, no distress, appears at stated age Derm: warm, dry Head: atraumatic, normocephalic, symmetric Eyes: EOMI, no lid lag, anicteric sclera Mouth: no lip lesion, mucus membranes moist Cardiovascular: S1S2 reg, no murmur Lungs: Decreased BS bilateral, no rhonchi, no rales , no accessory muscle use Ext: no gross muscle atrophy, no edema, no contractures Neuro: no focal neuro deficits Psych: Alert, oriented, appropriate affect Acute respiratory failure with hypoxia Bilateral pulmonary emboli: Eliquis 10 mg PO BID. Right lower extremity DVT: AC as above. COVID-19 infection: Currenly on Prednisone 50 mg PO QD. COPD exacerbation: Albuterol INH 2 puff Q2H PRN SOB/wheezing. Pulmonary on board. History of recent CVA with right-sided deficits: ASA 81 mg PO QD. Would benefit from statin. AFib: Amiodarone 200 mg PO BID. Coreg 25 mg PO BID. Hypertension: Losartan 100 mg PO QD. Coreg as above. Hyperlipidemia: Would benefit from statin. CODE STATUS: FULL CODE DVT Prophylaxis: Eliquis GI Prophylaxis: Protonix Designated medical POA if patient is not able to make medical decisions for themselves: I have reviewed the following environmental consultant notes: Pulmonary I have reviewed the results of the following tests: I have ordered the following tests: CBC and BMP I have discussed the care of this patient with the following independent historian: I have independently interpreted the following test below: I have discussed the management of this patient with the following physician: Objective - Vital Signs Vital signs: Vital Signs Temp 97.9 F 04/01/24 07:29 Pulse 65 04/01/24 07:29 Resp 17 04/01/24 07:29 BP 135/72 04/01/24 07:29 Pulse Ox 91 L 04/01/24 07:29 FiO2 60 03/25/24 12:20 Intake & Output 03/31/24 04/01/24 04/01/24 18:59 06:59 18:59 Output Total 1100 1400 Balance -1100 -1400 Output: Urine 1100 1400 Other: Voiding Method External Catheter - Labs CBC & Chem 7: 03/29/24 07:59 03/29/24 07:59
--- NOTE | 2024-04-01 13:27 | P.DS ---
Providers Date of admission: 03/22/24 07:45 Expected date of discharge: 04/01/24 Attending physician: Eliseo Mijares MD Consults: 03/22/24 07:45 Consult Physician Routine Consulting Provider: Enoc Barber Consult Reason/Comments: Pulmonary embolism Do you want consulting provider notified?: Yes Primary care physician: [place] Hospital Course: 68-year-old female with a past medical history of hypertension, hyperlipidemia, stage IIIa CKD and recent CVA who presented for hypoxia and cyanosis. Upon arrival to the emergency department, patient underwent evaluation. Vital signs upon arrival show blood pressure 148/79, heart rate 62, respiratory rate 20, temp 98.0 F, and SpO2 of 99% on 15 L supplemental oxygen. EKG was completed showing normal sinus rhythm at 61 bpm with no noted T wave or ST abnormalities. Chest x-ray negative for acute cardiopulmonary process. CBC showing platelet count of 112. BMP chloride of 108, BUN of 41, creatinine of 1.21, GFR 47. Blood glucose was 118. Troponin was negative at less than 0.012. proBNP 94. D-dimer was elevated at greater than 35. CTA chest completed showing pulmonary emboli with overall moderate burden localized to the bilateral upper lobes as well as right middle lobe with no CT evidence for right heart strain at this time along with moderate to advanced emphysema and dependent opacities reported to be likely representing prominent dependent atelectasis. Patient was started on high intensity heparin infusion for treatment of PE. She was admitted under our services with consultation to pulmonology.Echocardiogram completed revealing an EF of 50 to 55%, right ventricle was not well-visualized on echocardiogram teleradiologist recommending referring to CT scan findings showing no signs of RV strain. Bilateral lower extremity Dopplers completed. Left lower extremity negative for DVT right leg positive for DVT from mid popliteal to calf veins. 04/01 Patient was seen and examined. Currently on 5L NC saturating 91%. Breathing improved. No chest pain. Discussed with case management, plans for [facility] today. Continue Eliquis 10 mg tonight followed by 5 mg PO BID. Start Prednisone taper (40 mg PO QD x 3 days, 30 mg PO QD x 3 days, 20 mg PO QD x 3 days, 10 mg PO QD x 3 days). Follow up with PCP within 1-2 days and Pulmonary within 1 week of discharge. General: non toxic, no distress, appears at stated age Derm: warm, dry Head: atraumatic, normocephalic, symmetric Eyes: EOMI, no lid lag, anicteric sclera Mouth: no lip lesion, mucus membranes moist Cardiovascular: S1S2 reg, no murmur Lungs: Decreased BS bilateral, no rhonchi, no rales , no accessory muscle use Ext: no gross muscle atrophy, no edema, no contractures Neuro: no focal neuro deficits Psych: Alert, oriented, appropriate affect Discharge Diagnosis: Acute respiratory failure with hypoxia Bilateral pulmonary emboli Right lower extremity DVT COVID-19 infection COPD exacerbation History of recent CVA with right-sided deficits AFib Hypertension Hyperlipidemia This complex discharge took 35 minutes to complete. Patient Condition at Discharge: Stable Plan - Discharge Summary New Discharge Prescriptions: New Furosemide [Lasix] 40 mg PO DAILY tab Pantoprazole [Protonix] 40 mg PO AC-BRKFST tab Albuterol Inhaler [Ventolin Hfa Inhaler] 2 puff INHALATION RT-Q2H PRN each PRN Reason: Shortness Of Breath Or Wheezing Apixaban [Eliquis] 5 mg PO BID tab Famotidine [Pepcid] 20 mg PO BID tab predniSONE See Taper PO DIRECTED #30 tab Continue bisacodyL [Dulcolax] 10 mg RECTAL DAILY PRN PRN Reason: Constipation carvediloL [Coreg] 25 mg PO BID@0800,1700 Magic Cup 1 dose PO BID@1200,1700 Zinc Sulfate [Orazinc] 220 mg PO DAILY@0800 polyethylene glycoL 3350 [Miralax] 17 gm PO DAILY@0800 Ascorbic Acid [Vitamin C] 1,000 mg PO DAILY@0800 Losartan Potassium [Cozaar] 100 mg PO DAILY@0800 Na Phos,M-B/Na Phos,Di-Ba [Fleet Adult] 133 ml RECTAL DAILY PRN PRN Reason: Constipation Magnesium Hydroxide [Milk of Magnesia Concentrate] 7,200 mg PO Q48H PRN PRN Reason: Constipation Acetaminophen [Tylenol Arthritis] 650 mg PO Q4H PRN PRN Reason: GENERAL DISCOMFORT amLODIPine [Norvasc] 5 mg PO BID@0800,1700 Amiodarone [Cordarone] 200 mg PO BID@0800,1700 Cholecalciferol (Vitamin D3) [Vitamin D3 (50 Mcg = 2000 Iu)] 50 mcg PO DAILY@0800 Aspirin 81 mg PO DAILY@0800 Discontinued Heparin Sodium,Porcine [Heparin Sodium] 5,000 unit SQ TID@0600,1400,2200 Discharge Medication List Acetaminophen [Tylenol Arthritis] 650 mg PO Q4H PRN 03/22/24 [History] Amiodarone [Cordarone] 200 mg PO BID@0800,1700 03/22/24 [History] Ascorbic Acid [Vitamin C] 1,000 mg PO DAILY@0800 03/22/24 [History] Aspirin 81 mg PO DAILY@0800 03/22/24 [History] Cholecalciferol (Vitamin D3) [Vitamin D3 (50 Mcg = 2000 Iu)] 50 mcg PO DAILY@0800 03/22/24 [History] Losartan Potassium [Cozaar] 100 mg PO DAILY@0800 03/22/24 [History] Magic Cup 1 dose PO BID@1200,1700 03/22/24 [History] Magnesium Hydroxide [Milk of Magnesia Concentrate] 7,200 mg PO Q48H PRN 03/22/24 [History] Na Phos,M-B/Na Phos,Di-Ba [Fleet Adult] 133 ml RECTAL DAILY PRN 03/22/24 [History] Zinc Sulfate [Orazinc] 220 mg PO DAILY@0800 03/22/24 [History] amLODIPine [Norvasc] 5 mg PO BID@0800,1700 03/22/24 [History] bisacodyL [Dulcolax] 10 mg RECTAL DAILY PRN 03/22/24 [History] carvediloL [Coreg] 25 mg PO BID@0800,1700 03/22/24 [History] polyethylene glycoL 3350 [Miralax] 17 gm PO DAILY@0800 03/22/24 [History] Albuterol Inhaler [Ventolin Hfa Inhaler] 2 puff INHALATION RT-Q2H PRN each 04/01/24 [Rx] Apixaban [Eliquis] 5 mg PO BID tab 04/01/24 [Rx] Famotidine [Pepcid] 20 mg PO BID tab 04/01/24 [Rx] Furosemide [Lasix] 40 mg PO DAILY tab 04/01/24 [Rx] Pantoprazole [Protonix] 40 mg PO AC-BRKFST tab 05/07/24 [Rx] predniSONE See Taper PO DIRECTED #30 tab 04/01/24 [Rx] Follow up Appointment(s)/Referral(s): Bar Mendoza, [NON-STAFF] - As Needed Farzad Deluca DO [Primary Care Provider] - 1-2 days Merry Rubin MD [STAFF PHYSICIAN] - 1 Week Discharge Disposition: TRANSFER TO SNF/ECF
--- NOTE | 2024-04-01 13:41 | P.PN ---
Subjective Progress Note Date: 04/01/24 68-year-old female brought in by EMS, from a local skilled nursing. The patient apparently developed shortness of breath, and for that reason was sent in to be evaluated. She was in skilled nursing for rehabilitation, having recently had a stroke, with right-sided weakness. The patient apparently developed marked shortness of breath, appeared dusky, with blue lips, and saturations in the upper 70s. The patient was placed on oxygen, and EMS was called, the patient was transported here for further evaluation. She was seen in ER, room 3. Evaluation revealed evidence of bilateral pulmonary emboli. The patient recently tested positive for coronavirus infection, at the skilled nursing, on March 20. Currently she is on IV heparin, saline at 75 cc an hour, and high flow nasal O2 at 10 L. She has a history of hyperlipidemia, hypertension, CVA, and recent coronavirus infection. Current labs include a white count 8.2, hemoglobin 14.3, hematocrit 43.6, and a platelet count of 112,000. D-dimer was greater than 35. Sodium 139, potassium 5.1, chlorides 108, CO2 24, BUN 41, and creatinine 1.21. Glucose was 118. AST 47. ALT 90. Troponin was less than 0.012. Albumin was 3.9. N-terminal proBNP was normal. Chest x-ray was unremarkable. CT angiogram was positive for bilateral pulmonary emboli, with moderate burden, localized to the bilateral upper lobes, as well as in the right middle lobe. There is no evidence on CT, of right heart strain. In addition, there was moderate to advanced emphysematous changes, with some basilar atelectasis. Progress note dated March 23, 2024. The patient is seen today in ER 16, and she continues on 8 L high flow oxygen. She is receiving IV heparin. She did test positive for coronavirus, on March 19. The patient came from the skilled nursing. She is feeling better today, and feeling less short of breath. Current labs include a white count 6.7, hemo globin 13.8, hematocrit 45.6, and a platelet count of 105,000. PTT is 84.3. Troponins were negative x 2. On today's evaluation of 03/24/2024, the patient is being seen for a follow-up that has been progressive worsening in the patient's oxygenation since yesterday. This morning, the patient is on a high flow oxygen at 40 L with an FiO2 of Hearing 70%. The patient is running a pulse ox of 97% and according to her she was dropped down to 60%. She is hemodynamically stable. She has expressive aphasia has quite difficult to communicate with the patient. She does have bilateral pulmonary embolism as discussed on a CT scan of the chest and the patient also has a positive DVT in the right mid popliteal vein extending to the calfs. Based on that, the patient was admitted on IV heparin. She also has a component of COPD exacerbation. She has extensive bilateral emphysematous changes on the CAT scan of the chest and the patient is currently on a combination of bronchodilators and IV Solu-Medrol. She also tested positive for COVID 19. Her sodium level is at 140, potassium is 4.9, bicarb is 21 BUN of 32 with a creatinine of 0.9. WBC 11.2 with a hemoglobin 12.6. The patient is not using accessory muscles of breathing. She is quite comfortable at this point in time. Echocardiogram that was done on 03/22/2024 showed a normal ejection fraction. RV was not visualized to comment on this strain pattern. On today's evaluation of 03/25/2024, the patient is being seen for a follow-up. The patient has bilateral pulm embolism and right lower extremity DVT. The patient became progressively more hypoxic and the patient had to be placed on Airvo. On today's evaluation, she remains on Airvo at 40 L with an FiO2 of 60%. The patient is pulse oximetry 95 to 98%. Will try to utilize high flow oxygen at 15 L and discontinue therefore. Less bronchospastic and wheezy on today's e valuation. Remains on DuoNeb updrafts. Remains on IV Solu-Medrol. Remains on IV heparin. IV Solu-Medrol is being administered to 40 mg every 8 hours. WBC count is 11.2 with hemoglobin 12.6 and a platelet count of 131. Those labs are from yesterday. No new labs are available from today. On 03/26/2024, the patient is being seen for a follow-up. The patient is doing well. No specific complaints. She has expressive aphasia. Unable to communicate effectively. Note that the patient was taken off the Airvo yesterday and the patient is currently on 8 L of oxygen by nasal cannula with a pulse ox of 92%. She remains on IV heparin. I am going to discontinue the IV heparin and start the patient on anticoagulation with Eliquis. She was started 2010 mg p.o. twice a day. She remains on bronchodilators. She remains on IV Solu-Medrol regarding her COPD exacerbation. No new labs are available from today. The patient is hemodynamically stable. No significant tachycardia. No fever. 03/27/2024, the patient is being seen for a follow-up. The patient is currently on 8 L of oxygen by nasal cannula. No significant interval improvement in oxygenation. I believe that the patient should be able to gradually wean off the FiO2. She remains on anticoagulation she is currently on Eliquis. She is on IV Solu-Medrol and bronchodilators. IV Solu-Medrol will be discontinued and the patient will be started on a prednisone burst taper today. She has expressive aphasia. Unable to communicate. White cell count of 12 with a hemoglobin 12.2, BUN is at 30 with a creatinine of 0.7. LFTs are unchanged. No fever. No chills. No other significant events. She is bedridden with right-sided hemiplegia and expressive aphasia related to a previous CVA. On today's evaluation of 03/28/2024, the patient is being seen for a follow-up. She remains on 8 L of oxygen by nasal cannula. A repeat chest x-ray was done today and shows a component of pulm vascular congestion and increased patchy inf iltrate in the left and this could be potentially an asymmetric venous congestion. The patient remains on oral anticoagulation. The patient was taken off the IV heparin. The patient was also taken off the IV Solu-Medrol started on a prednisone burst taper. She has expressive aphasia. She is calm and comfortable. No signs of any significant respite distress. No labs are available from today. Yesterday labs were essentially within normal limits. Made recommendations to gradually wean off the FiO2 and I am going to diurese this patient with IV Lasix. 03/29/2024, the patient is being seen for a follow-up. She is currently on 7 L of oxygen by nasal cannula. No respiratory distress. She is being diuresed and the patient is producing excess amount of urine output, fluid balance is nega tive at least 1.5 L over the past 24 hours. Calm and comfortable. Remains on anticoagulation. She is currently on Eliquis. White cell count is 12.6 with a hemoglobin of 12.8 and a platelet count of 184, BUN is at 41 with a creatinine of 0.7 and a sodium levels at 141. She has expressive aphasia. No signs of a significant respiratory distress. 03/30/2024, the patient is being seen for a follow-up. Having difficulty in weaning down FiO2 any further. She has chronic cyanosis in her lips. I suspect this hypoxemia is essentially chronic. She is currently on 5 L with a pulse ox of 86%. Placed back on 6 L. She has diuresed adequately with IV Lasix and the patient will be switched to oral Lasix. The patient remains anticoagulation with Eliquis. The patient is also on prednisone regarding a stroke exacerbation she remains on bronchodilators. No other new complaints otherwise for now. The WBC count 12.6 with hemoglobin 12.8. She gets 41 with a creatinine of 0.7 and sodium is at 141. She has been negative fluid balance over the past several days. Repeat chest x-ray will be obtained in a.m. The patient is seen today March 31, 2024 in follow-up on the regular medical floor. She is resting in bed. She is still on 6 L high flow nasal cannula. Follow-up chest x-ray continues show infiltrate of the left lung base is stable with tiny bilateral pleural effusions. She remains on prednisone. Anticoagulated with Eliquis. Remains on oral diuretics. The patient is seen today April 01, 2024 and follow-up on the regular medical floor. She is awake and alert in no acute distress. Maintaining good O2 saturations in the 90s on 5 L high flow nasal cannula. Denies any worsening s hortness of breath, cough or congestion. No hemoptysis. She remains afebrile. Hemodynamically stable. No new labs today. She is anticoagulated with Eliquis. Remains on bronchodilators as needed. Continued on a prednisone taper. Objective - Vital Signs Vital signs: Vital Signs Temp 97.9 F 04/01/24 07:29 Pulse 65 04/01/24 07:29 Resp 17 04/01/24 07:29 BP 135/72 04/01/24 07:29 Pulse Ox 90 L 04/01/24 10:08 FiO2 60 03/25/24 12:20 Intake & Output 03/31/24 04/01/24 04/01/24 18:59 06:59 18:59 Output Total 1100 1400 Balance -1100 -1400 Output: Urine 1100 1400 Other: Voiding Method External Catheter External Catheter - Exam A 68-year-old female patient. Awake and alert resting in bed, no acute distress, oriented 3. Currently on 5 L of oxygen by nasal cannula Head exam was generally normal. There was no scleral icterus or corneal arcus. Mucous membranes were moist. HEENT examination is grossly unremarkable. Mucous membranes are moist. No oral lesions. Neck supple. Full range of motion. No adenopathy thyromegaly or neck vein distention. Cardiovascular examination reveals regular rhythm rate. S1-S2 normal. No S3 or S4. No discernible murmur noted. Lungs reveal mild scattered rhonchi. Breath sounds equal bilaterally. No wheezes or crackles. Abdomen soft bowel sounds are heard. No masses or tenderness. Extremities are intact. No cyanosis clubbing or edema. Skin is without rash or lesion. Neurologic examination is brief but nonfocal. - Labs CBC & Chem 7: 03/29/24 07:59 03/29/24 07:59 Assessment and Plan Assessment: Acute hypoxic respiratory failure DVT. Multifactorial. The patient has bilateral pulm embolism and right lower extremity DVT addition to COPD exacerbation. No clear indication for COVID-19 related pneumonia. The patient is currently off Airvo and the patient is currently on high flow oxygen at 5 L, overall condition is stable and the chest, possibly asymmetric pulm edema the patient was diuresed with limited improvement in oxygenation. Suspect her hypoxemia is essentially chronic. She has chronic cyanosis. Acute right lower extremity DVT Acute bilateral pulmonary embolism, currently on oral anticoagulation with Eliquis Acute COPD exacerbation, currently improving and remains on bronchodilators and prednisone burst taper COVID 19, 03/19/2024, and apparently this is the patient's second COVID-19 infection. History of recent CVA with right-sided weakness. The patient has expressive a phasia History of hypertension. History of hyperlipidemia. Obesity Plan: The patient was seen and evaluated Medications reviewed Titrate down the FiO2 as tolerated Continue bronchodilators and prednisone taper Remains on Eliquis Plan is to return to [facility] at discharge I have personally seen and examined the patient, performed the documentation and the assessment and plan as written. Number of minutes spent on the visit: 10.
[2024-04-01 16:45] VITALS: BP 121/62; PULSE 66; RESP 19; TEMP 98.8
[2024-04-02] MEDS ORDERED: PANTOPRAZOLE 40 MG TABLET PO SCH (07:30)
[2024-04-02] MEDS ORDERED: APIXABAN 5 MG TAB PO SCH (09:00)
== END 2024-04-01 15:30 | DRG 175 ==
LOC: EC 04:25 → 3SCARD 07:45 → 4SSUR 03-30 22:42
PROVIDERS: ADMIT Internal Medicine; ATTEND Internal Medicine
DX: I26.99 Other pulmonary embolism without acute cor pulmonale (principal); J96.01 Acute respiratory failure with hypoxia; U07.1 COVID-19; I69.351 Hemiplegia and hemiparesis following cerebral infarction affecting right dominant side; I82.431 Acute embolism and thrombosis of right popliteal vein; J44.1 Chronic obstructive pulmonary disease with (acute) exacerbation; J98.11 Atelectasis; N17.9 Acute kidney failure, unspecified; I48.91 Unspecified atrial fibrillation; R74.8 Abnormal levels of other serum enzymes; I12.9 Hypertensive chronic kidney disease with stage 1 through stage 4 chronic kidney disease, or unspecified chronic kidney disease; E78.5 Hyperlipidemia, unspecified; D69.6 Thrombocytopenia, unspecified; E66.9 Obesity, unspecified; Z68.35 Body mass index [BMI] 35.0-35.9, adult; E87.8 Other disorders of electrolyte and fluid balance, not elsewhere classified; I69.320 Aphasia following cerebral infarction; I82.461 Acute embolism and thrombosis of right calf muscular vein; N18.31 Chronic kidney disease, stage 3a; Z74.01 Bed confinement status; R32 Unspecified urinary incontinence; Z79.82 Long term (current) use of aspirin; Z79.899 Other long term (current) drug therapy; Z86.711 Personal history of pulmonary embolism; Z71.3 Dietary counseling and surveillance
CPT/HCPCS: 36415; 71045; 71046; 71275; 80048; 80053; 81001; 83605; 83615; 83735; 83880; 84484; 85025; 85027; 85379; 85610; 85730; 86140; 87086; 93005; 93306; 93970; 94640; 94760; 96365; 96366; 96375; 96376; 99291

== ENCOUNTER 2024-04-20 17:13 | Inpatient (IN) | payer MEDICARE, BC ==
--- NOTE | 2024-04-20 17:22 | ED ---
SOB HPI - General Stated Complaint: DAPHNIE Time Seen by Provider: 04/20/24 17:20 Source: RN notes reviewed, old records reviewed, Caregiver Mode of arrival: ambulatory Limitations: no limitations - History of Present Illness Initial Comments: This is a 68-year-old female to ER for severe shortness of breath with cough and congestion patient is a moderately poor historian presenting from extended-care facility for severe shortness of breath and hypoxia. MD Complaint: shortness of breath, cough, chest pain, anxiety -: days(s) Severity: severe Severity scale (1-10): 8 Quality: aching Consistency: constant Improves With: nothing Known History Of: COPD Context: recent URI Associated Symptoms: denies other symptoms - Related Data Home Medications Medication Instructions Recorded Confirmed Acetaminophen [Tylenol Arthritis] 650 mg PO Q4H PRN 03/22/24 04/20/24 Amiodarone [Cordarone] 200 mg PO BID@0800,1700 03/22/24 04/20/24 Aspirin 81 mg PO DAILY@0800 03/22/24 04/20/24 Magnesium Hydroxide [Milk of 7,200 mg PO Q48H PRN 03/22/24 04/20/24 Magnesia Concentrate] Na Phos,M-B/Na Phos,Di-Ba [Fleet 133 ml RECTAL DAILY PRN 03/22/24 04/20/24 Adult] amLODIPine [Norvasc] 5 mg PO BID@0800,1700 03/22/24 04/20/24 bisacodyL [Dulcolax] 10 mg RECTAL DAILY PRN 03/22/24 04/20/24 carvediloL [Coreg] 25 mg PO BID@0800,1700 03/22/24 04/20/24 Apixaban [Eliquis] 5 mg PO BID@0800,1700 04/20/24 04/20/24 Famotidine [Pepcid] 20 mg PO BID@0800,1700 04/20/24 04/20/24 INSULIN ASPART (NovoLOG) [NovoLOG See Protocol SQ TID@0700,1100,1630 04/20/24 04/20/24 (formulary)] Ipratropium-Albuterol Nebulize 3 ml INHALATION RT-QID@00,06,12,18 04/20/24 04/20/24 [Duoneb 0.5 mg-3 mg/3 ml Soln] Liquacel 30 ml PO BID@0800,1700 04/20/24 04/20/24 Loperamide HCl [Imodium A-D] 2 mg PO QID PRN 04/20/24 04/20/24 Pantoprazole [Protonix] 40 mg PO DAILY@0700 04/20/24 04/20/24 Promethazine Hcl Solution 25 mg IM Q6H PRN 04/20/24 04/20/24 Previous Rx's Medication Instructions Recorded Albuterol Inhaler [Ventolin Hfa 2 puff INHALATION RT-Q2H PRN each 04/01/24 Inhaler] Furosemide [Lasix] 20 mg PO DAILY #0 04/25/24 polyethylene glycoL 3350 [Miralax] 17 gm PO DAILY@0800 PRN 30 Days #30 04/25/24 predniSONE 50 mg PO DAILY 2 Days #2 tab 04/25/24 Allergies Allergy/AdvReac Type Severity Reaction Status Date / Time No Known Allergies Allergy Verified 04/20/24 18:54 Review of Systems ROS Statement: Those systems with pertinent positive or pertinent negative responses have been documented in the HPI. ROS Other: All systems not noted in ROS Statement are negative. Past Medical History Past Medical History: Hyperlipidemia, Hypertension, Pneumonia Additional Past Medical History / Comment(s): MURMUR WHEN YOUNGER, MILD URINARY INCONT-WEARS A PAD. History of Any Multi-Drug Resistant Organisms: None Reported Past Surgical History: Bladder Surgery, Cholecystectomy Additional Past Surgical History / Comment(s): bladder suspension ,EGD Past Anesthesia/Blood Transfusion Reactions: No Reported Reaction Additional Past Anesthesia/Blood Transfusion Reaction / Comment(s): HAD BLOOD TRANSFUSION AFTER CHILDBIRTH-NO REACTION Past Psychological History: No Psychological Hx Reported Past Alcohol Use History: None Reported Past Drug Use History: None Reported - Past Family History Mother Family Medical History: Cancer Father Family Medical History: Congestive Heart Failure (CHF) General Exam General appearance: alert, anxious, in distress Head exam: Present: atraumatic, normocephalic, normal inspection Eye exam: Present: normal appearance, PERRL, EOMI. Absent: scleral icterus, conjunctival injection, periorbital swelling ENT exam: Present: normal exam, mucous membranes moist Neck exam: Present: normal inspection. Absent: tenderness, meningismus, lymphadenopathy Respiratory exam: Present: respiratory distress, wheezes, accessory muscle use, decreased breath sounds, prolonged expiratory. Absent: rales, rhonchi, stridor Cardiovascular Exam: Present: regular rate, normal rhythm, normal heart sounds. Absent: systolic murmur, diastolic murmur, rubs, gallop, clicks GI/Abdominal exam: Present: soft, normal bowel sounds. Absent: distended, tenderness, guarding, rebound, rigid Extremities exam: Present: normal inspection, full ROM, normal capillary refill. Absent: tenderness, pedal edema, joint swelling, calf tenderness Back exam: Present: normal inspection Neurological exam: Present: alert, oriented X3, CN II-XII intact Psychiatric exam: Present: normal affect, normal mood Skin exam: Present: warm, dry, intact, normal color. Absent: rash Course Vital Signs 04/20/24 04/20/24 04/20/24 17:20 17:51 18:53 Temperature 98.5 F Pulse Rate 56 L 58 L Respiratory 20 14 Rate Blood Pressure 111/52 O2 Sat by Pulse 82 L Oximetry 04/20/24 04/20/24 04/20/24 19:02 22:30 23:38 Temperature Pulse Rate 54 L 61 61 Respiratory 20 18 Rate Blood Pressure 126/44 141/53 O2 Sat by Pulse 91 L 92 L Oximetry - Reevaluation(s) Reevaluation #1: 04/20/24 18:27 Medical records reviewed Reevaluation #2: 04/20/24 18:27 Patient symptoms improving Reevaluation #3: 04/20/24 22:11 Informed of results and questions answered Reevaluation #4: Was pt. sent in by a medical professional or institution (, PA, TOOL SHAPER SET UP OPERATOR, urgent care, hospital, or long-term...) When possible be specific @ -no Did you speak to anyone other than the patient for history (EMS, parent, family, police, friend...)? What history was obtained from this source @ -no Did you review nursing and triage notes (agree or disagree)? Why? @ -agree Are old charts reviewed (outside hosp., previous admission, EMS record, old EKG, old radiological studies, urgent care reports/EKG's, long-term records)? Report findings @ -yes Differential Diagnosis (chest pain, altered mental status, abdominal pain women, abdominal pain men, vaginal bleeding, weakness, fever, dyspnea, syncope, headache, dizziness, GI bleed, back pain, seizure, CVA, palpatations, mental health, musculoskeletal)? @ -prior EKG interpreted by me (3pts min.). @ -yes X-rays interpreted by me (1pt min.). @ -yes positive for pneumonia e CT interpreted by me (1pt min.). @ -no U/S interpreted by me (1pt. min.). @ -no What testing was considered but not performed or refused? (CT, X-rays, U/S, labs)? Why? @ -none What meds were considered but not given or refused? Why? @ -none Did you discuss the management of the patient with other professionals (professionals i.e. , PA, TOOL SHAPER SET UP OPERATOR, lab, RT, psych nurse, social work manager, shipping team leader, teacher, military police officer, watch caser)? Give summary @ -no Was smoking cessation discussed for >3mins.? @ -no Were there social determinants of health that impacted care today? How? (Homelessness, low income, unemployed, alcoholism, drug addiction, transportation, low edu. Level, literacy, decrease access to med. care, fdc, rehab)? @ -none Was there de-escalation of care discussed even if they declined (Discuss DNR or withdrawal of care, Hospice)? DNR status @ -no What co-morbidities impacted this encounter? (DM, HTN, Smoking, COPD, CAD, Ca ncer, CVA, ARF, Chemo, Hep., AIDS, mental health diagnosis, sleep apnea, morbid obesity)? @ -none Was patient admitted / discharged? Hospital course, mention meds given and route, prescriptions, significant lab abnormalities, going to OR and other pertinent info. @ - 68 female to the ER for respiratory failure hypoxic respiratory failure with pneumonia. Patient will be admitted for respiratory support IV antibiotics Admitted Was critical care preformed (if so, how long)? @ -yes31 Undiagnosed new problem with uncertain prognosis? @ -no Drug Therapy requiring intensive monitoring for toxicity (Heparin, Nitro, Insulin, Cardizem)? @ -no Were any procedures done? @ -no Diagnosis/symptom? @ -Acute respiratory failure with hypoxia Acute, or Chronic, or Acute on Chronic? @ -Acute Uncomplicated (without systemic symptoms) or Complicated (systemic symptoms)? @ -Complicated Side effects of treatment? @ -no Exacerbation, Progression, or Severe Exacerbation? @ -exacerbation Poses a threat to life or bodily function? How? (Chest pain, [place], [place], pneumonia, PE, COPD, DKA, ARF, appy, cholecystitis, CVA, Diverticulitis, Homicidal, Suicidal, threat to staff... and all critical care pts) @ -yes respiratory failure and hypoxia Reevaluation #5: Differential Dyspnea: Coronary syndrome, arrhythmia, tamponade, asthma, COPD, pulmonary embolism, pneumonia, pneumothorax, pulmonary effusion, anaphylaxis, diabetic ketoacidosis, flailed chest, pulmonary contusion, diaphragmatic rupture, anemia, neuromuscular, this is not meant to be an all-inclusive list. - Consultations Consultation #1: Spoke with mechelle who agrees to admit this patient Medical Decision Making - Medical Decision Making 68 female to the ER for respiratory failure hypoxic respiratory failure with pne umonia. Patient will be admitted for respiratory support IV antibiotics - Lab Data Result diagrams: 04/25/24 03:45 04/25/24 03:45 Lab Results 04/20/24 04/20/24 04/20/24 Range/Units 18:08 18:08 18:08 WBC 8.4 (3.8-10.6) k/uL RBC 4.31 (3.80-5.40) m/uL Hgb 13.1 (11.4-16.0) gm/dL Hct 40.8 (34.0-46.0) % MCV 94.6 (80.0-100.0) fL MCH 30.5 (25.0-35.0) pg MCHC 32.2 (31.0-37.0) g/dL RDW 15.7 H (11.5-15.5) % Plt Count 152 (150-450) k/uL MPV 9.2 Neutrophils % 71 % Lymphocytes % 12 % Monocytes % 9 % Eosinophils % 5 % Basophils % 1 % Neutrophils # 5.9 (1.3-7.7) k/uL Lymphocytes # 1.0 (1.0-4.8) k/uL Monocytes # 0.7 (0-1.0) k/uL Eosinophils # 0.4 (0-0.7) k/uL Basophils # 0.1 (0-0.2) k/uL PT 10.7 (10.0-12.5) sec INR 1.0 (<1.2) APTT 22.6 (22.0-30.0) sec D-Dimer 0.40 (<0.60) mg/L FEU Sodium 138 (137-145) mmol/L Potassium 5.7 H (3.5-5.1) mmol/L Chloride 104 (98-107) mmol/L Carbon Dioxide 25 (22-30) mmol/L Anion Gap 9 mmol/L BUN 59 H (7-17) mg/dL Creatinine 1.72 H (0.52-1.04) mg/dL Est GFR (CKD-EPI)AfAm 35 (>60 ml/min/1.73 sqM) Est GFR (CKD-EPI)NonAf 30 (>60 ml/min/1.73 sqM) Glucose 119 H (74-99) mg/dL Plasma Lactic Acid Adam (0.7-2.0) mmol/L Calcium 9.4 (8.4-10.2) mg/dL Magnesium 2.2 (1.6-2.3) mg/dL Total Bilirubin 0.8 (0.2-1.3) mg/dL AST 47 H (14-36) U/L ALT 66 H (4-34) U/L Alkaline Phosphatase 81 (38-126) U/L Troponin I (0.000-0.034) ng/mL NT-Pro-B Natriuret Pep 348 pg/mL Total Protein 6.8 (6.3-8.2) g/dL Albumin 3.8 (3.5-5.0) g/dL 04/20/24 04/20/24 Range/Units 18:08 18:08 WBC (3.8-10.6) k/uL RBC (3.80-5.40) m/uL Hgb (11.4-16.0) gm/dL Hct (34.0-46.0) % MCV (80.0-100.0) fL MCH (25.0-35.0) pg MCHC (31.0-37.0) g/dL RDW (11.5-15.5) % Plt Count (150-450) k/uL MPV Neutrophils % % Lymphocytes % % Monocytes % % Eosinophils % % Basophils % % Neutrophils # (1.3-7.7) k/uL Lymphocytes # (1.0-4.8) k/uL Monocytes # (0-1.0) k/uL Eosinophils # (0-0.7) k/uL Basophils # (0-0.2) k/uL PT (10.0-12.5) sec INR (<1.2) APTT (22.0-30.0) sec D-Dimer (<0.60) mg/L FEU Sodium (137-145) mmol/L Potassium (3.5-5.1) mmol/L Chloride (98-107) mmol/L Carbon Dioxide (22-30) mmol/L Anion Gap mmol/L BUN (7-17) mg/dL Creatinine (0.52-1.04) mg/dL Est GFR (CKD-EPI)AfAm (>60 ml/min/1.73 sqM) Est GFR (CKD-EPI)NonAf (>60 ml/min/1.73 sqM) Glucose (74-99) mg/dL Plasma Lactic Acid Adam 1.6 (0.7-2.0) mmol/L Calcium (8.4-10.2) mg/dL Magnesium (1.6-2.3) mg/dL Total Bilirubin (0.2-1.3) mg/dL AST (14-36) U/L ALT (4-34) U/L Alkaline Phosphatase (38-126) U/L Troponin I 0.012 (0.000-0.034) ng/mL NT-Pro-B Natriuret Pep pg/mL Total Protein (6.3-8.2) g/dL Albumin (3.5-5.0) g/dL - EKG Data -: EKG Interpreted by Me (EKG sinus 57 [place] 168 QRS 106 QTc 428) - Radiology Data Radiology results: report reviewed (Chest x-ray is positive for pneumonia), image reviewed Critical Care Time Critical Care Time: Yes Total Critical Care Time: 31 Disposition Clinical Impression: Community acquired pneumonia, Hypoxia, Pneumonia of both lower lobes, Acute respiratory distress syndrome in adult Disposition: ADMITTED IP TO THIS HOSP Condition: Fair Is patient prescribed a controlled substance at d/c from ED?: No Time of Disposition: 22:10
[2024-04-20] MEDS: methylPREDNISolone SOD SUCCI 125 MG/2 ML VIAL IV STA (18:00)
[2024-04-20] MEDS: SODIUM CHLORIDE 0.9% 1,000 ML IV STA (18:05)
[2024-04-20 18:18] LABS: Basophils # (A) 0.1 k/uL (0-0.2); Basophils % (A) 1 %; Eosinophils # (A) 0.4 k/uL (0-0.7); Eosinophils % (A) 5 %; HCT 40.8 % (34.0-46.0); HGB 13.1 gm/dL (11.4-16.0); Lymphocytes % (A) 12 %; MCH 30.5 pg (25.0-35.0); MCHC 32.2 g/dL (31.0-37.0); MCV 94.6 fL (80.0-100.0); Mean Platelet Volume 9.2; Monocytes # (A) 0.7 k/uL (0-1.0); Monocytes % (A) 9 %; Neutrophils # (A) 5.9 k/uL (1.3-7.7); Neutrophils % (A) 71 %; Platelet Count 152 k/uL (150-450); RBC 4.31 m/uL (3.80-5.40); RDW 15.7 % (11.5-15.5); WBC 8.4 k/uL (3.8-10.6)
[2024-04-20 18:29] LABS: ALT 66 U/L (4-34); African American GFR (CKD) 35 (>60 ml/min/1.73 sqM); Albumin 3.8 g/dL (3.5-5.0); Anion Gap 9 mmol/L; Blood Urea Nitrogen 59 mg/dL (7-17); Calcium 9.4 mg/dL (8.4-10.2); Carbon Dioxide 25 mmol/L (22-30); Chloride 104 mmol/L (98-107); Glucose 119 mg/dL (74-99); Non-African American GFR(CKD) 30 (>60 ml/min/1.73 sqM); Sodium 138 mmol/L (137-145); Total Bilirubin 0.8 mg/dL (0.2-1.3); Total Protein 6.8 g/dL (6.3-8.2)
[2024-04-20 18:30] LABS: AST 47 U/L (14-36); Alkaline Phosphatase 81 U/L (38-126); Magnesium 2.2 mg/dL (1.6-2.3); Potassium 5.7 mmol/L (3.5-5.1)
[2024-04-20 18:37] LABS: NT-Pro-B-Type Natriuretic Pept 348 pg/mL
[2024-04-20 18:43] LABS: Partial Thromboplastin Time 22.6 sec (22.0-30.0); Prothrombin Time 10.7 sec (10.0-12.5)
[2024-04-20] MEDS: IPRATROPIUM-ALBUTEROL 3 ML NEB INHALATION STA (18:53)
--- NOTE | 2024-04-20 21:36 | XR ---
EXAMINATION TYPE: XR chest 1V portable DATE OF EXAM: 04/20/2024 COMPARISON: 03/31/2024 INDICATION: Short of breath TECHNIQUE: Single frontal view of the chest is obtained. FINDINGS: The heart size is normal. The pulmonary vasculature is normal. Mild infiltrates at the bilateral lung bases. Correlate for atelectasis or pneumonia. Follow-up is re commended. IMPRESSION: 1. Mild bibasilar infiltrates. Correlate for atelectasis or pneumonia.
[2024-04-20] MEDS ORDERED: PNEUMONIA PROTOCOL UTILIZED 1 EACH MISC PO PRN (22:00)
[2024-04-20] MEDS: PIPERACILLIN-TAZOBACTAM 3.375 GM in SODIUM CHLORIDE 0.9% 100 ML IVPB STA (23:40)
[2024-04-21] MEDS: IPRATROPIUM-ALBUTEROL 3 ML NEB INHALATION STA (00:01)
[2024-04-21] MEDS ORDERED: IPRATROPIUM-ALBUTEROL 3 ML NEB INHALATION PRN (00:02)
[2024-04-21] MEDS ORDERED: ACETAMINOPHEN TAB 325 MG TAB PO PRN (01:41)
[2024-04-21] MEDS ORDERED: DEXTROSE 50% SYRINGE 50 ML IVP PRN ×2 (01:44)
[2024-04-21] MEDS: LEVOFLOXACIN 750MG-D5W PMX 750 MG in DEXTROSE/WATER 1 150ML.BAG IVPB ONE (01:47)
[2024-04-21] MEDS: LEVOFLOXACIN 750MG-D5W PMX 750 MG in DEXTROSE/WATER 1 150ML.BAG IVPB STA (01:48)
--- NOTE | 2024-04-21 02:01 | P.HPIM ---
History of Present Illness H&P Date: 04/20/24 Chief Complaint: Shortness of breath 68-year-old female with A-fib, COPD, hypertension, recent diagnosis of pulmonary embolism and right leg DVT on Eliquis Patient is very poor historian and provides very limited history Patient was sent in from rehab due to hypoxemia and coughing for further evaluation patient fails to provide any meaningful history at this time however upon presentation she was found to be hypoxic despite 3 L nasal cannula with oxygen saturation down in the low 80s percent, chest x-ray showed bilateral infiltrates/atelectasis she was started on antibiotics decrease supplemental oxygen was admitted for further care Patient does have right-sided residual weakness from history of stroke During her last visit she was diagnosed with COVID-19 right leg DVT and bilateral PEs was about a month ago was treated here then discharged to rehab Review of systems Unable to obtain any meaningful review of systems on exam Constitutional: No acute distress, seems to be confused Eyes: Anicteric sclerae, moist conjunctiva, Pupils equal round reactive to light ENMT: NC/AT Oropharynx clear, no erythema, or exudates Neck: Supple, no masses, or JVD No carotid bruits No thyromegaly Lungs: Diminished breath sounds poor effort Clear to percussion Normal respiratory effort, no accessory muscle use Cardiovascular: Heart regular in rate and rhythm, No murmurs, gallops, or rubs No peripheral edema Abdominal: Soft Nontender, no guarding, rebound or rigidity Abdomen moving with respiration Normoactive bowel sounds Extremities: Patient has central cyanosis around her lips however oxygen saturation 92% No clubbing Pedal pulses intact and symmetrical Radial pulses intact and symmetrical No calf tenderness Psychiatric: Awake alert oriented to self only Neuro Muscles Strength 4 out of 5 left upper and lower extremity, 1 out of 5 right upper and lower extremity Past Medical History Past Medical History: Hyperlipidemia, Hypertension, Pneumonia Additional Past Medical History / Comment(s): MURMUR WHEN YOUNGER, MILD URINARY INCONT-WEARS A PAD. History of Any Multi-Drug Resistant Organisms: None Reported Past Surgical History: Bladder Surgery, Cholecystectomy Additional Past Surgical History / Comment(s): bladder suspension ,EGD Past Anesthesia/Blood Transfusion Reactions: No Reported Reaction Additional Past Anesthesia/Blood Transfusion Reaction / Comment(s): HAD BLOOD TRANSFUSION AFTER CHILDBIRTH-NO REACTION Past Psychological History: No Psychological Hx Reported Past Alcohol Use History: None Reported Past Drug Use History: None Reported - Past Family History Mother Family Medical History: Cancer Father Family Medical History: Congestive Heart Failure (CHF) Medications and Allergies Home Medications Medication Instructions Recorded Confirmed Type Acetaminophen [Tylenol Arthritis] 650 mg PO Q4H PRN 03/22/24 04/20/24 History Amiodarone [Cordarone] 200 mg PO BID@0800,1700 03/22/24 04/20/24 History Aspirin 81 mg PO DAILY@0800 03/22/24 04/20/24 History Losartan Potassium [Cozaar] 100 mg PO DAILY@0800 03/22/24 04/20/24 History Magnesium Hydroxide [Milk of 7,200 mg PO Q48H PRN 03/22/24 04/20/24 History Magnesia Concentrate] Na Phos,M-B/Na Phos,Di-Ba [Fleet 133 ml RECTAL DAILY PRN 03/22/24 04/20/24 History Adult] amLODIPine [Norvasc] 5 mg PO BID@0800,1700 03/22/24 04/20/24 History bisacodyL [Dulcolax] 10 mg RECTAL DAILY PRN 03/22/24 04/20/24 History carvediloL [Coreg] 25 mg PO BID@0800,1700 03/22/24 04/20/24 History polyethylene glycoL 3350 [Miralax] 17 gm PO DAILY@0800 03/22/24 04/20/24 History Albuterol Inhaler [Ventolin Hfa 2 puff INHALATION RT-Q2H PRN each 04/01/24 04/20/24 Rx Inhaler] Apixaban [Eliquis] 5 mg PO BID@0800,1700 04/20/24 04/20/24 History Famotidine [Pepcid] 20 mg PO BID@0800,1700 04/20/24 04/20/24 History Furosemide [Lasix] 40 mg PO DIRECTED 04/20/24 04/20/24 History INSULIN ASPART (NovoLOG) [NovoLOG See Protocol SQ TID@0700,1100,1630 04/20/24 04/20/24 History (formulary)] Ipratropium-Albuterol Nebulize 3 ml INHALATION RT-QID@00,06,12,18 04/20/24 04/20/24 History [Duoneb 0.5 mg-3 mg/3 ml Soln] Liquacel 30 ml PO BID@0800,1700 04/20/24 04/20/24 History Loperamide HCl [Imodium A-D] 2 mg PO QID PRN 04/20/24 04/20/24 History Pantoprazole [Protonix] 40 mg PO DAILY@0700 04/20/24 04/20/24 History Promethazine Hcl Solution 25 mg IM Q6H PRN 04/20/24 04/20/24 History Sulfamethox-Tmp 800-160Mg [Bactrim 1 tab PO BID@0600,1800 04/20/24 04/20/24 History DS 800-160 mg] Allergies Allergy/AdvReac Type Severity Reaction Status Date / Time No Known Allergies Allergy Verified 04/20/24 18:54 Physical Exam Vitals: Vital Signs Temp Pulse Resp BP Pulse Ox 04/20/24 19:02 54 L 04/20/24 18:53 58 L 04/20/24 17:51 14 04/20/24 17:20 98.5 F 56 L 20 111/52 82 L Intake and Output 04/20/24 04/20/24 04/20/24 06:59 14:59 22:59 Other: Weight 86.636 kg Results CBC & Chem 7: 04/20/24 18:08 04/20/24 18:08 Labs: Abnormal Lab Results - Last 24 Hours (Table) 04/20/24 04/20/24 Range/Units 18:08 18:08 RDW 15.7 H (11.5-15.5) % Potassium 5.7 H (3.5-5.1) mmol/L BUN 59 H (7-17) mg/dL Creatinine 1.72 H (0.52-1.04) mg/dL Glucose 119 H (74-99) mg/dL AST 47 H (14-36) U/L ALT 66 H (4-34) U/L Assessment and Plan Assessment: 68-year-old female with A-fib, stroke, recent diagnosis of right lower extremity DVT and bilateral PEs on Eliquis was sent in here for worsening hypoxemia and coughing I discussed case with ED doctor and accepted the admission for suspected pneumonia acute hypoxic respiratory failure with anticipated length of stay more than 2 midnights Acute on chronic hypoxic respiratory failure Suspected pneumonia Follow-up cultures Check urine Legionella Empirically start patient on levofloxacin 750 mg IV piggyback daily Supplemental oxygen as needed Supportive care Chest x-ray shows bilateral infiltrates White count unremarkable 8.4 hemoglobin 13.1 COPD exacerbation Continue patient on systemic IV steroids with methylprednisolone 60 mg IV push daily DuoNeb inhaler as needed Supplemental oxygen as needed History of bilateral pulmonary embolism right lower extremity DVT diagnosed 1 month ago Continue with Eliquis Current D-dimer is negative Diabetes mellitus Insulin sliding scale Hypertension Continue with amlodipine and carvedilol Acute kidney injury BUN 59 creatinine 1.7 potassium 5.7 Avoid nephrotoxic meds Hold losartan IV fluid hydration normal saline 100 cc/h Monitor urine output History of A-fib Continue with amiodarone Continue with Eliquis Full code DVT prophylaxis on Eliquis for recent history of venous thromboembolism GI prophylaxis Protonix 40 mg p.o. daily
[2024-04-21 05:53] LABS: Glucose,Whole Blood 186 mg/dL (70-110)
[2024-04-21] MEDS ORDERED: PIPERACILLIN-TAZOBACTAM 3.375 GM in SODIUM CHLORIDE 0.9% 100 ML IVPB SCH (06:00)
[2024-04-21] MEDS: PANTOPRAZOLE 40 MG TABLET PO SCH (06:14)
[2024-04-21] MEDS: methylPREDNISolone SOD SUCCI 125 MG/2 ML VIAL IV SCH (06:14)
[2024-04-21] MEDS: INSULIN ASPART (NovoLOG) 100 UNIT/ML VIAL SQ SCH (06:43)
--- NOTE | 2024-04-21 07:54 | XR ---
EXAMINATION TYPE: XR chest 1V DATE OF EXAM: 04/21/2024 7:45 AM CLINICAL INDICATION:Female, 68 years old with history of pneumonia; COMPARISON: Chest radiographs from 04/20/2024 TECHNIQUE: XR chest 1V Frontal view of the chest. FINDINGS: Lungs/Pleura: Prominent interstitial lung markings are seen scattered throughout the lungs. No eviden ce of focal consolidation, pneumothorax or pleural effusion. Pulmonary vascularity: Unremarkable. Heart/mediastinum: Cardiomediastinal silhouette is unremarkable. Musculoskeletal: No acute osseous pathology. IMPRESSION: Stable exam, chronic changes No acute cardiopulmonary disease/process.
[2024-04-21] MEDS: ALBUTEROL NEBULIZED 2.5 MG/3 ML INHALATION SCH (08:57)
[2024-04-21] MEDS ORDERED: LEVOFLOXACIN 750 MG TAB PO SCH (09:00)
[2024-04-21] MEDS: carvediloL 12.5 MG TAB PO SCH (09:44)
[2024-04-21] MEDS: ASPIRIN 81 MG PO SCH (09:44)
[2024-04-21] MEDS: amLODIPine 5 MG TAB PO SCH (09:44)
[2024-04-21] MEDS: AMIODARONE 200 MG TAB PO SCH (09:44)
[2024-04-21] MEDS: APIXABAN 5 MG TAB PO SCH (09:44)
[2024-04-21 12:02] LABS: Glucose,Whole Blood 223 mg/dL (70-110)
--- NOTE | 2024-04-21 14:13 | P.PN ---
Subjective Progress Note Date: 04/21/24 No new complaints. Pt reports dyspnea is stable. Gen: In NAD, non-toxic HEENT: normocephalic, atraumatic, hearing acuity is intant, mucous membranes moist CVS: perfusing all extremities well, no pitting edema, Respiratory: symmetric chest expansion, no accessory muscle use, GI: soft, NTTP, ND, : no suprapubic tenderness, no CVA tenderness MSK/Derm: no rashes, cyanosis is present around the lips, this appears to be patient's baseline from my prior evaluation Neuro: CN II-XII intact, no motor weakness, Psych: cooperative, euthymic mood, judgment and insight is intact Hospital course: 68-year-old female with A-fib, stroke, recent diagnosis of right lower extremity DVT and bilateral PEs on Eliquis was sent in here for worsening hypoxemia and coughing. Chest x-ray shows bilateral infiltrates White count unremarkable 8.4 hemoglobin 13.1 BUN 59 creatinine 1.7 potassium 5.7 Current D-dimer is negative Assessment/plan: Acute on chronic hypoxic respiratory failure Suspected pneumonia Follow-up cultures, sputum and blood are still pending Check urine Legionella, pending Procalcitonin is pending Continue levofloxacin 750 mg IV piggyback daily Supplemental oxygen as needed Supportive care COPD exacerbation Continue patient on systemic IV steroids with methylprednisolone 60 mg IV push daily DuoNeb inhaler as needed Supplemental oxygen as needed History of bilateral pulmonary embolism right lower extremity DVT diagnosed 1 month ago Continue with Eliquis Diabetes mellitus Insulin sliding scale Hypertension Continue with amlodipine and carvedilol Acute kidney injury Avoid nephrotoxic meds Hold losartan IV fluid hydration normal saline 100 cc/h Monitor urine output History of A-fib Continue with amiodarone Continue with Eliquis Full code DVT prophylaxis on Eliquis for recent history of venous thromboembolism GI prophylaxis Protonix 40 mg p.o. daily Objective - Vital Signs Vital signs: Vital Signs Temp 97.5 F L 04/21/24 07:36 Pulse 60 04/21/24 12:04 Resp 18 04/21/24 07:36 BP 114/73 04/21/24 07:36 Pulse Ox 92 L 04/21/24 11:56 FiO2 Intake & Output 04/20/24 04/21/24 04/21/24 18:59 06:59 18:59 Weight 86.636 kg 86.636 kg Other: Voiding Method Diaper Incontinent # Voids 3 # Bowel Movements 1 - Labs CBC & Chem 7: 04/20/24 18:08 04/20/24 18:08 Labs: Abnormal Lab Results - Last 24 Hours (Table) 04/20/24 04/20/24 04/21/24 Range/Units 18:08 18:08 05:46 RDW 15.7 H (11.5-15.5) % Potassium 5.7 H (3.5-5.1) mmol/L BUN 59 H (7-17) mg/dL Creatinine 1.72 H (0.52-1.04) mg/dL Glucose 119 H (74-99) mg/dL POC Glucose (mg/dL) 186 H (70-110) mg/dL AST 47 H (14-36) U/L ALT 66 H (4-34) U/L 04/21/24 Range/Units 12:01 RDW (11.5-15.5) % Potassium (3.5-5.1) mmol/L BUN (7-17) mg/dL Creatinine (0.52-1.04) mg/dL Glucose (74-99) mg/dL POC Glucose (mg/dL) 223 H (70-110) mg/dL AST (14-36) U/L ALT (4-34) U/L
--- NOTE | 2024-04-21 16:00 | P.CNPUL ---
History of Present Illness Consult date: 04/21/24 Reason for consult: dyspnea History of present illness: 68-year-old female patient who is currently being seen for shortness of breath and possible pneumonia. The patient was recently in the hospital and during her hospitalization the patient was treated for acute hypoxic tawnya failure as the patient was found to have bilateral pulmonary embolism and right lower extremity DVT. During her hospital stay, the patient was also found to have a COVID-19 infection. The patient was treated with anticoagulation. She was initially on high flow oxygen and she was weaned down to nasal cannula and ultimately, the patient discharged to rehabilitation. She also has history of COPD. The patient has also suffered a previous CVA with right-sided weakness and chronic expressive aphasia. She has hypertension and hyperlipidemia. The patient came back to the hospital yesterday because of cough and congestion and some worsening in her oxygenation. She was found to be hypoxic on 3 L of oxygen by nasal cannula. For this reason, she was sent over to the hospital. White cell count is 8.4 with a hemoglobin 15 and a platelet count of 152. Normal coagulation profile. Normal D-dimers. BUN is at 69 with a creatinine of 1.7 and a sodium levels at 138 with a potassium level of 5.7. Note that the patient sustained an acute kidney injury as her previous creatinine during her last admission was within normal limits. The troponins were negative, proBNP level was 348, AST was 47 with an ALT of 66 and a bilirubin of 0.8. Calcium level is at 9.4. The chest x-ray done today shows no acute cardiopulmonary process. There is prominent incisional markings seen throughout the lung neri bilaterally.Most recent echocardiogram from 03/22/2024 showed normal levels of ejection fraction, no significant valvular abnormalities noted. She is curren tly on 8 L of O2 nasal cannula. Is also on Levaquin. Remains on anticoagulation with Eliquis. EKG showing sinus bradycardia. Heart rate is 57. Review of Systems Constitutional: Reports as per HPI Eyes: denies as per HPI, denies blurred vision, denies bulging eye, denies decreased vision, denies diplopia, denies discharge, denies dry eye, denies irritation, denies itching, denies pain, denies photophobia, denies loss of peripheral vision, denies loss of vision, denies tunnel vision/blind spots Ears: deny: decreased hearing, ear discharge, earache, tinnitus Ears, nose, mouth and throat: Reports as per HPI Breasts: absent: as per HPI, change in shape, gynecomastia, masses, nipple discharge, pain, skin changes, swelling Cardiovascular: Reports dyspnea on exertion Respiratory: Reports cough, Reports dyspnea Gastrointestinal: Reports as per HPI Genitourinary: Reports as per HPI Menstruation: Reports as per HPI Musculoskeletal: Reports as per HPI Musculoskeletal: absent: ankle pain, ankle stiffness, ankle swelling, as per HPI, elbow pain, elbow stiffness, elbow swelling, foot pain, foot stiffness, foot swelling, hand pain, hand stiffness, hand swelling, hip pain, hip st iffness, hip swelling, knee pain, knee stiffness, knee swelling, shoulder pain, shoulder stiffness, shoulder swelling, wrist pain, wrist stiffness, wrist swelling Integumentary: Reports as per HPI Neurological: Reports aphasia, Reports gait dysfunction, Reports weakness (Right-sided weakness) Psychiatric: Reports as per HPI Endocrine: Reports as per HPI Hematologic/Lymphatic: Reports as per HPI Allergic/Immunologic: Reports as per HPI Past Medical History Past Medical History: CVA/TIA, Deep Vein Thrombosis (DVT), Hyperlipidemia, Hypertension, Pneumonia, Pulmonary Embolus (PE) Additional Past Medical History / Comment(s): MURMUR WHEN YOUNGER, MILD URINARY INCONT-WEARS A PAD. History of Any Multi-Drug Resistant Organisms: None Reported Past Surgical History: Bladder Surgery, Cholecystectomy Additional Past Surgical History / Comment(s): bladder suspension ,EGD Past Anesthesia/Blood Transfusion Reactions: No Reported Reaction Additional Past Anesthesia/Blood Transfusion Reaction / Comment(s): HAD BLOOD TRANSFUSION AFTER CHILDBIRTH-NO REACTION Past Psychological History: No Psychological Hx Reported Smoking Status: Never smoker Past Alcohol Use History: None Reported Additional Past Alcohol Use History / Comment(s): STARTED SMOKING AT AGE 15(1 970_ AND QUIT 2000,SMOKED 2 PPD Past Drug Use History: None Reported - Past Family History Mother Family Medical History: Cancer Father Family Medical History: Congestive Heart Failure (CHF) Medications and Allergies Home Medications Medication Instructions Recorded Confirmed Type Acetaminophen [Tylenol Arthritis] 650 mg PO Q4H PRN 03/22/24 04/20/24 History Amiodarone [Cordarone] 200 mg PO BID@0800,1700 03/22/24 04/20/24 History Aspirin 81 mg PO DAILY@0800 03/22/24 04/20/24 History Losartan Potassium [Cozaar] 100 mg PO DAILY@0800 03/22/24 04/20/24 History Magnesium Hydroxide [Milk of 7,200 mg PO Q48H PRN 03/22/24 04/20/24 History Magnesia Concentrate] Na Phos,M-B/Na Phos,Di-Ba [Fleet 133 ml RECTAL DAILY PRN 03/22/24 04/20/24 History Adult] amLODIPine [Norvasc] 5 mg PO BID@0800,1700 03/22/24 04/20/24 History bisacodyL [Dulcolax] 10 mg RECTAL DAILY PRN 03/22/24 04/20/24 History carvediloL [Coreg] 25 mg PO BID@0800,1700 03/22/24 04/20/24 History polyethylene glycoL 3350 [Miralax] 17 gm PO DAILY@0800 03/22/24 04/20/24 History Albuterol Inhaler [Ventolin Hfa 2 puff INHALATION RT-Q2H PRN each 04/01/24 04/20/24 Rx Inhaler] Apixaban [Eliquis] 5 mg PO BID@0800,1700 04/20/24 04/20/24 History Famotidine [Pepcid] 20 mg PO BID@0800,1700 04/20/24 04/20/24 History Furosemide [Lasix] 40 mg PO DIRECTED 04/20/24 04/20/24 History INSULIN ASPART (NovoLOG) [NovoLOG See Protocol SQ TID@0700,1100,1630 04/20/24 04/20/24 History (formulary)] Ipratropium-Albuterol Nebulize 3 ml INHALATION RT-QID@00,06,12,18 04/20/24 04/20/24 History [Duoneb 0.5 mg-3 mg/3 ml Soln] Liquacel 30 ml PO BID@0800,1700 04/20/24 04/20/24 History Loperamide HCl [Imodium A-D] 2 mg PO QID PRN 04/20/24 04/20/24 History Pantoprazole [Protonix] 40 mg PO DAILY@0700 04/20/24 04/20/24 History Promethazine Hcl Solution 25 mg IM Q6H PRN 04/20/24 04/20/24 History Sulfamethox-Tmp 800-160Mg [Bactrim 1 tab PO BID@0600,1800 04/20/24 04/20/24 History DS 800-160 mg] Allergies Allergy/AdvReac Type Severity Reaction Status Date / Time No Known Allergies Allergy Verified 04/20/24 18:54 Physical Exam Vitals: Vital Signs Temp Pulse Pulse Pulse Resp BP BP 04/21/24 12:04 60 04/21/24 11:56 04/21/24 11:52 60 04/21/24 09:10 60 04/21/24 08:57 60 04/21/24 07:36 97.5 F L 61 18 114/73 04/21/24 01:43 97.3 F L 61 20 106/62 04/21/24 00:55 97.6 F 63 16 112/63 04/20/24 23:38 61 18 141/53 04/20/24 22:30 61 20 126/44 04/20/24 19:02 54 L 04/20/24 18:53 58 L 04/20/24 17:51 14 04/20/24 17:20 98.5 F 56 L 20 111/52 Pulse Ox 04/21/24 12:04 04/21/24 11:56 92 L 04/21/24 11:52 04/21/24 09:10 04/21/24 08:57 96 04/21/24 07:36 90 L 04/21/24 01:43 92 L 04/21/24 00:55 91 L 04/20/24 23:38 92 L 04/20/24 22:30 91 L 04/20/24 19:02 04/20/24 18:53 04/20/24 17:51 04/20/24 17:20 82 L Intake and Output 04/20/24 04/21/24 04/21/24 22:59 06:59 14:59 Other: Voiding Method Diaper Incontinent # Voids 3 # Bowel Movements 1 Weight 86.636 kg 86.636 kg A 68-year-old female patient. No acute distress, oriented 3. Currently on 8 L of oxygen by nasal cannula Head exam was generally normal. There was no scleral icterus or corneal arcus. Mucous membranes were moist. HEENT examination is grossly unremarkable. Mucous membranes are moist. No oral lesions. Neck supple. Full range of motion. No adenopathy thyromegaly or neck vein distention. Cardiovascular examination reveals regular rhythm rate. S1-S2 normal. No S3 or S4. No discernible murmur noted. Lungs reveal mild scattered rhonchi. Breath sounds equal bilaterally. No wheezes or crackles. Abdomen soft bowel sounds are heard. No masses or tenderness. Extremities are intact. No cyanosis clubbing or edema. Skin is without rash or lesion. Neurologic examination shows chronic right-sided weakness and the patient has expressive aphasia. There is related to a previous CVA. Results - Laboratory Findings CBC and BMP: 04/20/24 18:08 04/20/24 18:08 PT/INR, D-dimer PT 10.7 sec (10.0-12.5) 04/20/24 18:08 INR 1.0 (<1.2) 04/20/24 18:08 D-Dimer 0.40 mg/L FEU (<0.60) 04/20/24 18:08 Abnormal lab findings: Abnormal Labs 04/20/24 04/20/24 04/21/24 18:08 18:08 05:46 RDW 15.7 H Potassium 5.7 H BUN 59 H Creatinine 1.72 H Glucose 119 H POC Glucose (mg/dL) 186 H AST 47 H ALT 66 H 04/21/24 12:01 RDW Potassium BUN Creatinine Glucose POC Glucose (mg/dL) 223 H AST ALT - Diagnostic Findings Chest x-ray: image reviewed Assessment and Plan Plan: Acute hypoxic respiratory failure, currently on 8 l of oxygen by nasal cannula. Exact cause is not clear. Consider aspiration. The patient has had previous stroke with expressive aphasia and chronic right-sided weakness. No clear indication for pneumonia at this point. Pulmonary embolism is doubtful as the patient was treated for pulm embolism and she remains anticoagulation the patient has a low D-dimer. History of bilateral pulm embolism and right lower extremity DVT History of COVID-19 infection. COPD, currently inactive and stable COVID 19, 03/19/2024, and apparently this is the patient's second COVID-19 infection. History of CVA with right-sided weakness. The patient has expressive aphasia History of hypertension. History of hyperlipidemia. Obesity Plan Continue current treatment Titrate FiO2 to maintain saturation above 90%. Continue empiric antibiotic coverage Continue anticoagulation with Eliquis With swallow evaluation to rule out possibility of an underlying aspiration.
[2024-04-21 16:42] LABS: Glucose,Whole Blood 233 mg/dL (70-110)
[2024-04-21 20:25] LABS: Glucose,Whole Blood 275 mg/dL (70-110)
[2024-04-22 06:04] LABS: Basophils % (A) 0 %; Eosinophils # (A) 0.2 k/uL (0-0.7); Eosinophils % (A) 2 %; HGB 11.8 gm/dL (11.4-16.0); Lymphocytes # (A) 0.5 k/uL (1.0-4.8); Lymphocytes % (A) 5 %; MCH 30.3 pg (25.0-35.0); MCHC 31.8 g/dL (31.0-37.0); MCV 95.1 fL (80.0-100.0); Mean Platelet Volume 10.1; Monocytes # (A) 0.3 k/uL (0-1.0); Monocytes % (A) 3 %; Neutrophils # (A) 8.4 k/uL (1.3-7.7); Neutrophils % (A) 88 %; Platelet Count 136 k/uL (150-450); RBC 3.89 m/uL (3.80-5.40); RDW 15.6 % (11.5-15.5); WBC 9.6 k/uL (3.8-10.6)
[2024-04-22 06:31] LABS: Glucose,Whole Blood 179 mg/dL (70-110)
[2024-04-22 06:56] LABS: African American GFR (CKD) 56 (>60 ml/min/1.73 sqM); Anion Gap 5 mmol/L; Blood Urea Nitrogen 42 mg/dL (7-17); Calcium 9.3 mg/dL (8.4-10.2); Carbon Dioxide 21 mmol/L (22-30); Chloride 111 mmol/L (98-107); Glucose 184 mg/dL (74-99); Magnesium 2.2 mg/dL (1.6-2.3); Non-African American GFR(CKD) 48 (>60 ml/min/1.73 sqM); Potassium 5.7 mmol/L (3.5-5.1); Sodium 137 mmol/L (137-145)
[2024-04-22] MEDS: LEVOFLOXACIN 750 MG TAB PO SCH (08:43)
[2024-04-22 11:37] LABS: Glucose,Whole Blood 230 mg/dL (70-110)
--- NOTE | 2024-04-22 13:54 | P.PN ---
Subjective Progress Note Date: 04/22/24 68-year-old female patient who is currently being seen for shortness of breath and possible pneumonia. The patient was recently in the hospital and during her hospitalization the patient was treated for acute hypoxic tawnya failure as the patient was found to have bilateral pulmonary embolism and right lower extremity DVT. During her hospital stay, the patient was also found to have a COVID-19 infection. The patient was treated with anticoagulation. She was initially on high flow oxygen and she was weaned down to nasal cannula and ultimately, the patient discharged to rehabilitation. She also has history of COPD. The patient has also suffered a previous CVA with right-sided weakness and chronic expressive aphasia. She has hypertension and hyperlipidemia. The patient came back to the hospital yesterday because of cough and congestion and some worsening in her oxygenation. She was found to be hypoxic on 3 L of oxygen by nasal cannula. For this reason, she was sent over to the hospital. White cell count is 8.4 with a hemoglobin 15 and a platelet count of 152. Normal coagulation profile. Normal D-dimers. BUN is at 69 with a creatinine of 1.7 and a sodium levels at 138 with a potassium level of 5.7. Note that the patient sustained an acute kidney injury as her previous creatinine during her last admission was within normal limits. The troponins were negative, proBNP level w as 348, AST was 47 with an ALT of 66 and a bilirubin of 0.8. Calcium level is at 9.4. The chest x-ray done today shows no acute cardiopulmonary process. There is prominent incisional markings seen throughout the lung neri bilaterally.Most recent echocardiogram from 03/22/2024 showed normal levels of ejection fraction, no significant valvular abnormalities noted. She is currently on 8 L of O2 nasal cannula. Is also on Levaquin. Remains on anticoagulation with Eliquis. EKG showing sinus bradycardia. Heart rate is 57. The patient is seen today April 22, 2024 in follow-up on the regular medical floor. She is currently resting fairly comfortably in bed. Still requiring 8 L high flow nasal cannula to maintain O2 saturations in the 90s. She is breathing a bit easier today compared to yesterday. White count 9.6. Hemoglobin 11.8. Platelets 136. Sodium 137. Potassium 5.2. Bicarb 21. BUN 42. Creatinine 1.17. Glucose 184. She remains on bronchodilators, steroids, antibiotics in the form of Levaquin. Anticoagulated with Eliquis. Speech therapy performed a swallow evaluation and did did not find any evidence of overt aspiration. She will remain on a dysphagia level 3 chopped diet. Objective - Vital Signs Vital signs: Vital Signs Temp 97.4 F L 04/22/24 07:55 Pulse 60 04/22/24 12:02 Resp 17 04/22/24 07:55 BP 93/60 04/22/24 07:55 Pulse Ox 93 L 04/22/24 07:55 FiO2 Intake & Output 04/21/24 04/22/24 04/22/24 18:59 06:59 18:59 Other: Voiding Method Diaper Diaper Diaper # Voids 1 - Exam GENERAL EXAM: Alert, pleasant 68-year-old female, on 8 L high flow nasal cannula, fairly comfortable in no apparent distress. HEAD: Normocephalic. EYES: Normal reaction of pupils, equal size. NOSE: Clear with pink turbinates. THROAT: No erythema or exudates. NECK: No masses, no JVD. CHEST: No chest wall deformity. LUNGS: Equal air entry with scattered rhonchi. CVS: S1 and S2 normal with no audible murmur, regular rhythm. ABDOMEN: No hepatosplenomegaly, normal bowel sounds, no guarding or rigidity. SPINE: No scoliosis or deformity SKIN: No rashes CENTRAL NERVOUS SYSTEM: Expressive aphasia, right-sided weakness, tone is normal in all 4 extremities. EXTREMITIES: There is no peripheral edema. No clubbing, no cyanosis. Periph eral pulses are intact. - Labs CBC & Chem 7: 04/22/24 05:10 04/22/24 10:50 Labs: Abnormal Lab Results - Last 24 Hours (Table) 04/21/24 04/21/24 04/21/24 Range/Units 14:48 16:40 20:23 RDW (11.5-15.5) % Plt Count (150-450) k/uL Neutrophils # (1.3-7.7) k/uL Lymphocytes # (1.0-4.8) k/uL Potassium (3.5-5.1) mmol/L Chloride (98-107) mmol/L Carbon Dioxide (22-30) mmol/L BUN (7-17) mg/dL Creatinine (0.52-1.04) mg/dL Glucose (74-99) mg/dL POC Glucose (mg/dL) 233 H 275 H (70-110) mg/dL Hemoglobin A1c 7.1 H (<=6.0) % 04/22/24 04/22/24 04/22/24 Range/Units 05:10 05:10 06:30 RDW 15.6 H (11.5-15.5) % Plt Count 136 L (150-450) k/uL Neutrophils # 8.4 H (1.3-7.7) k/uL Lymphocytes # 0.5 L (1.0-4.8) k/uL Potassium 5.7 H (3.5-5.1) mmol/L Chloride 111 H (98-107) mmol/L Carbon Dioxide 21 L (22-30) mmol/L BUN 42 H (7-17) mg/dL Creatinine 1.17 H (0.52-1.04) mg/dL Glucose 184 H (74-99) mg/dL POC Glucose (mg/dL) 179 H (70-110) mg/dL Hemoglobin A1c (<=6.0) % 04/22/24 04/22/24 Range/Units 10:50 11:36 RDW (11.5-15.5) % Plt Count (150-450) k/uL Neutrophils # (1.3-7.7) k/uL Lymphocytes # (1.0-4.8) k/uL Potassium 5.2 H (3.5-5.1) mmol/L Chloride (98-107) mmol/L Carbon Dioxide (22-30) mmol/L BUN (7-17) mg/dL Creatinine (0.52-1.04) mg/dL Glucose (74-99) mg/dL POC Glucose (mg/dL) 230 H (70-110) mg/dL Hemoglobin A1c (<=6.0) % Microbiology - Last 24 Hours (Table) 04/20/24 23:20 Blood Culture - Preliminary Blood Assessment and Plan Assessment: Acute hypoxic respiratory failure, currently on 8 l of oxygen by nasal cannula. Exact cause is not clear. The patient has had previous stroke with expressive aphasia and chronic right-sided weakness. No clear indication for pneumonia at this point. Pulmonary embolism is doubtful as the patient was treated for pulmonary embolism and she remains anticoagulation the patient has a low D- dimer. Considered aspiration however speech therapy evaluation did not reveal any signs or symptoms of aspiration. She remains on a chopped level 3 dysphagia diet. History of bilateral pulmonary embolism and right lower extremity DVT History of atrial fibrillation, anticoagulated with Eliquis COPD, currently inactive and stable COVID 19, 03/19/2024, and apparently this is the patient's second COVID-19 infection History of CVA with right-sided weakness. The patient has expressive aphasia History of hypertension History of hyperlipidemia Obesity Plan: The patient was seen and evaluated Labs and medications reviewed Speech therapy evaluation reviewed No clear evidence of aspiration Titrate down the FiO2 as tolerated Remains on Levaquin Check a procalcitonin Anticoagulated with Eliquis We will continue to follow I have personally seen and examined the patient, performed the documentation and the assessment and plan as written. Number of minutes spent on the visit: 10.
--- NOTE | 2024-04-22 14:58 | P.PN ---
Subjective Progress Note Date: 04/22/24 Hospital course 68-year-old female with A-fib, stroke, recent diagnosis of right lower extremity DVT and bilateral PEs on Eliquis was sent in here for worsening hypoxemia and coughing. Chest x-ray showed bilateral infiltrates. Patient started on Levaquin. Pulmonology following the patient. Since patient has expressive aphasia there is concern that patient may be aspirating. Patient did have swallow eval and she was cleared for dysphagia 3 diet. Patient also had acute kidney injury. Nephrotoxic meds distance were put on hold. Patient was given IV fluids. Patient's creatinine improved. Patient seen this morning. She is a poor historian secondary to expressive apha bladimir. She states that she feels good. She is currently on 8 L nasal cannula. I discussed with the nurse to wean down her oxygen. 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, right lower extremity weakness, expressive aphasia Psych - Calm and cooperative Assessment and plan Acute on chronic hypoxic respiratory failure Suspected pneumonia Follow-up cultures, sputum and blood are still pending Check urine Legionella, pending Procalcitonin is pending Continue levofloxacin 750 mg IV piggyback daily Supplemental oxygen as needed Supportive care COPD exacerbation Continue patient on systemic IV steroids with methylprednisolone 60 mg IV push daily DuoNeb inhaler as needed Supplemental oxygen as needed History of bilateral pulmonary embolism right lower extremity DVT diagnosed 1 month ago Continue with Eliquis Diabetes mellitus Insulin sliding scale Hypertension Continue with amlodipine and carvedilol Acute kidney injury Avoid nephrotoxic meds Hold losartan IV fluid hydration normal saline 100 cc/h Monitor urine output Creatinine normalized History of A-fib Continue with amiodarone Continue with Eliquis Full code DVT prophylaxis on Eliquis for recent history of venous thromboembolism GI prophylaxis Protonix 40 mg p.o. daily Objective - Vital Signs Vital signs: Vital Signs Temp 97.6 F 04/22/24 14:00 Pulse 68 04/22/24 14:00 Resp 17 04/22/24 14:00 BP 125/66 04/22/24 14:00 Pulse Ox 96 04/22/24 14:00 FiO2 Intake & Output 04/21/24 04/22/24 04/22/24 18:59 06:59 18:59 Other: Voiding Method Diaper Diaper Diaper # Voids 1 - Labs CBC & Chem 7: 04/22/24 05:10 04/22/24 10:50 Labs: Abnormal Lab Results - Last 24 Hours (Table) 04/21/24 04/21/24 04/21/24 Range/Units 14:48 16:40 20:23 RDW (11.5-15.5) % Plt Count (150-450) k/uL Neutrophils # (1.3-7.7) k/uL Lymphocytes # (1.0-4.8) k/uL Potassium (3.5-5.1) mmol/L Chloride (98-107) mmol/L Carbon Dioxide (22-30) mmol/L BUN (7-17) mg/dL Creatinine (0.52-1.04) mg/dL Glucose (74-99) mg/dL POC Glucose (mg/dL) 233 H 275 H (70-110) mg/dL Hemoglobin A1c 7.1 H (<=6.0) % 04/22/24 04/22/24 04/22/24 Range/Units 05:10 05:10 06:30 RDW 15.6 H (11.5-15.5) % Plt Count 136 L (150-450) k/uL Neutrophils # 8.4 H (1.3-7.7) k/uL Lymphocytes # 0.5 L (1.0-4.8) k/uL Potassium 5.7 H (3.5-5.1) mmol/L Chloride 111 H (98-107) mmol/L Carbon Dioxide 21 L (22-30) mmol/L BUN 42 H (7-17) mg/dL Creatinine 1.17 H (0.52-1.04) mg/dL Glucose 184 H (74-99) mg/dL POC Glucose (mg/dL) 179 H (70-110) mg/dL Hemoglobin A1c (<=6.0) % 04/22/24 04/22/24 Range/Units 10:50 11:36 RDW (11.5-15.5) % Plt Count (150-450) k/uL Neutrophils # (1.3-7.7) k/uL Lymphocytes # (1.0-4.8) k/uL Potassium 5.2 H (3.5-5.1) mmol/L Chloride (98-107) mmol/L Carbon Dioxide (22-30) mmol/L BUN (7-17) mg/dL Creatinine (0.52-1.04) mg/dL Glucose (74-99) mg/dL POC Glucose (mg/dL) 230 H (70-110) mg/dL Hemoglobin A1c (<=6.0) % Microbiology - Last 24 Hours (Table) 04/20/24 23:20 Blood Culture - Preliminary Blood
[2024-04-22 16:36] LABS: Glucose,Whole Blood 223 mg/dL (70-110)
[2024-04-22 20:15] LABS: Glucose,Whole Blood 339 mg/dL (70-110)
[2024-04-23 06:20] LABS: Glucose,Whole Blood 223 mg/dL (70-110)
[2024-04-23 09:25] LABS: Basophils # (A) 0.03 X 10*3/uL (0.00-0.10); Basophils % (A) 0.3 %; Eosinophils # (A) 0 X 10*3/uL (0.04-0.35); Eosinophils % (A) 0 %; HCT 38.1 % (37.2-46.3); HGB 11.8 g/dL (12.0-15.0); Lymphocytes % (A) 5.3 %; MCH 30.3 pg (27.0-32.0); MCV 97.9 FL (80.0-97.0); Mean Platelet Volume 11.9 FL (9.5-12.2); Monocytes # (A) 0.56 X 10*3/uL (0.20-1.00); Monocytes % (A) 4.9 %; NRBC Per 100 WBC 0.03 X 10*3/uL (0.00-0.01); Neutrophils # (A) 9.95 X 10*3/uL (1.80-7.70); Neutrophils % (A) 87.2 %; Platelet Count 173 X 10*3/uL (140-440); RBC 3.89 X 10*6/uL (4.10-5.20)
[2024-04-23 09:29] LABS: BUN/Creat Ratio 34.15 Ratio (12.00-20.00); Blood Urea Nitrogen 44.4 mg/dL (9.0-27.0); Calcium 9.8 mg/dL (8.7-10.3); Chloride 105 mmol/L (96-109); Glucose 218 mg/dL (70-110); Potassium 5.8 mmol/L (3.5-5.5); Sodium 138 mmol/L (135-145)
[2024-04-23 11:08] LABS: Glucose,Whole Blood 306 mg/dL (70-110)
--- NOTE | 2024-04-23 12:11 | CDI ---
Documentation Clarification Form Date: 04/23/2024 From: Omaira Peguero Phone: [phone] Admit Date: 04/20/2024 10:09:00 PM Patient Name: Emiliana Miles Visit Number: [id number] Discharge Date: ATTENTION: The Clinical Documentation Specialists (CDI) and [facility] Coding Staff appreciate your assistance in clarifying documentation. Please respond to the clarification below the line at the bottom and electronically sign. The CDI & [facility] Coding staff will review the response and follow-up if needed. Please note: Queries are made part of the Legal Health Record. If you have any questions, please contact the author of this message via ITS. Dr. Irasema Sanchez: Conflicting documentation has been found in the medical record. As attending physician, please provide clarification. 04/21 H&P, Assessment and Plan: "COPD exacerbation" 04/21 Pulmonology consult, Assessment and Plan: "COPD, currently inactive and stable." History/Risk Factors: 68-year-old female with a history of COPD, AFib, HTN recent PE and right leg DVT who presents with hypoxemia and coughing Clinical Indicators: 04/21 Triage VS: 111/52, 98.5, 56, 20, 82% 3liters nasal cannula 04/20-04/23 O2 sat range: 82% (04/20 on 3l nasal cannula)-99% (04/21 on 8liters nasal cannula) 04/20 Chest X Ray, Impression: "1. Mild bibasilar infiltrates. Correlate for atelectasis or pneumonia." Treatment: Pulmonology consult Duoneb 0.5-3mg [id number] PRN-no doses given Ventolin nebulized 2.5mg QID start 04/21 Solumedrol 60mg IV [id number] start 04/21 Please clarify which diagnosis is most appropriate: [ ] Acute exacerbation of COPD [ ] Acute exacerbation of COPD ruled out [ ] Other (please specify) [ ] Unable to determine MTDD
--- NOTE | 2024-04-23 12:24 | CDI ---
Documentation Clarification Form Date: 04/23/2024 From: Omaira Peguero Phone: [phone] Admit Date: 04/20/2024 10:09:00 PM Patient Name: Emiliana Miles Visit Number: [id number] Discharge Date: ATTENTION: The Clinical Documentation Specialists (CDI) and [facility] Coding Staff appreciate your assistance in clarifying documentation. Please respond to the clarification below the line at the bottom and electronically sign. The CDI & [facility] Coding staff will review the response and follow-up if needed. Please note: Queries are made part of the Legal Health Record. If you have any questions, please contact the author of this message via ITS. Dr. Irasema Sanchez: There is documentation of suspected pneumonia in the H&P 04/20 and in subsequent documentation. Additional clarification is requested. History/Risk Factors: 68-year-old female with a history of COPD, AFib, HTN recent PE and right leg DVT who presents with hypoxemia and coughing Clinical Indicators: 04/21 Triage VS: 111/52, 98.5, 56, 20, 82% 3liters nasal cannula 04/20-04/23 O2 sat range: 82% (04/20 on 3l nasal cannula)-99% (04/21 on 8liters nasal cannula) 04/21 Pulmonology consult, Assessment and Plan: "There is no clear indication for pneumonia at this point." 04/22 Pulmonology PN, Assessment and Plan: Considered aspiration however speech therapy evaluation did not reveal any signs or symptoms of aspiration." 04/20-04/23 WBC: 8.4, 9.6, 11.40 04/21 Procalcitonin: 0.10 04/20 Chest X Ray, Impression: "1. Mild bibasilar infiltrates. Correlate for atelectasis or pneumonia." Treatment: Pulmonology consult Duoneb 0.5-3mg [id number] PRN-no doses given Ventolin nebulized 2.5mg QID start 04/21 Solumedrol 60mg IV [id number] start 04/21 Levofloxacin 750mg IV once 04/21 then 750mg oral [id number] start 04/22 Zosyn 3.375gram IV once 04/20 Can you please clarify the diagnosis of pneumonia? [ X ] Pneumonia ruled in [ ] Pneumonia ruled out [ ] Other, please specify [ ] Unable to determine MTDD
--- NOTE | 2024-04-23 13:46 | P.PN ---
Subjective Progress Note Date: 04/23/24 Hospital course 68-year-old female with A-fib, stroke, recent diagnosis of right lower extremity DVT and bilateral PEs on Eliquis was sent in here for worsening hypoxemia and coughing. Chest x-ray showed bilateral infiltrates. Patient started on Levaquin. Pulmonology following the patient. Since patient has expressive aphasia there is concern that patient may be aspirating. Patient did have swallow eval and she was cleared for dysphagia 3 diet. Patient also had acute kidney injury. Nephrotoxic meds distance were put on hold. Patient was given IV fluids. Patient's creatinine improved. Patient seen this morning. She is denying any shortness of breath. She states that she feels well. 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 Will treat as pneumonia as patient was symptomatic Continue levofloxacin 750 mg IV piggyback daily Supplemental oxygen as needed. Patient currently on 6 L nasal cannula and satting well. I discussed with the nurse to titrate down her oxygen Pulmonology following Supportive care COPD exacerbation Continue patient on systemic IV steroids with methylprednisolone 60 mg IV push daily DuoNeb inhaler as needed Supplemental oxygen as needed History of bilateral pulmonary embolism right lower extremity DVT diagnosed 1 month ago Continue with Eliquis Hyperkalemia Potassium this morning was 5.8. Repeat potassium was 5.1. I believe the a.m. labs was hemolyzed Diabetes mellitus Insulin sliding scale Blood glucose is between 223 and 339 Stable Hypertension Continue with amlodipine and carvedilol Acute kidney injury Avoid nephrotoxic meds Hold losartan IV fluid hydration normal saline 100 cc/h Monitor urine output Creatinine normalized History of A-fib Continue with amiodarone Continue with Eliquis Full code DVT prophylaxis on Eliquis for recent history of venous thromboembolism GI prophylaxis Protonix 40 mg p.o. daily Disposition: Patient will return back to detention once she is medically stable Objective - Vital Signs Vital signs: Vital Signs Temp 98.1 F 04/23/24 08:00 Pulse 58 L 04/23/24 12:52 Resp 17 04/23/24 08:00 BP 127/54 04/23/24 08:00 Pulse Ox 98 04/23/24 08:50 FiO2 Intake & Output 04/22/24 04/23/24 04/23/24 18:59 06:59 18:59 Output Total 300 Balance -300 Output: Urine 300 Other: Voiding Method Diaper Diaper External Catheter # Voids 1 - Labs CBC & Chem 7: 04/23/24 05:31 04/23/24 10:51 Labs: Abnormal Lab Results - Last 24 Hours (Table) 04/21/24 04/22/24 04/22/24 Range/Units 14:48 16:35 20:14 WBC (4.50-10.00) X 10*3/uL RBC (4.10-5.20) X 10*6/uL Hgb (12.0-15.0) g/dL MCV (80.0-97.0) FL MCHC (32.0-37.0) g/dL RDW (11.5-14.5) % Immature Gran # (0.00-0.04) X 10*3/uL Neutrophils # (1.80-7.70) X 10*3/uL Lymphocytes # (0.90-5.00) X 10*3/uL Eosinophils # (0.04-0.35) X 10*3/uL NRBC/100 WBC Diff (0.00-0.01) X 10*3/uL Potassium (3.5-5.5) mmol/L Carbon Dioxide (21.6-31.8) mmol/L BUN (9.0-27.0) mg/dL Est GFR (CKD-EPI) (>=60) BUN/Creatinine Ratio (12.00-20.00) Ratio Glucose (70-110) mg/dL POC Glucose (mg/dL) 223 H 339 H (70-110) mg/dL Procalcitonin 0.10 H (0.02-0.09) ng/mL 04/23/24 04/23/24 04/23/24 Range/Units 05:31 05: 06:18 WBC 11.40 H (4.50-10.00) X 10*3/uL RBC 3.89 L (4.10-5.20) X 10*6/uL Hgb 11.8 L (12.0-15.0) g/dL MCV 97.9 H (80.0-97.0) FL MCHC 31.0 L (32.0-37.0) g/dL RDW 17.0 H (11.5-14.5) % Immature Gran # 0.26 H (0.00-0.04) X 10*3/uL Neutrophils # 9.95 H (1.80-7.70) X 10*3/uL Lymphocytes # 0.60 L (0.90-5.00) X 10*3/uL Eosinophils # 0 L (0.04-0.35) X 10*3/uL NRBC/100 WBC Diff 0.03 H (0.00-0.01) X 10*3/uL Potassium 5.8 H (3.5-5.5) mmol/L Carbon Dioxide 21.0 L (21.6-31.8) mmol/L BUN 44.4 H (9.0-27.0) mg/dL Est GFR (CKD-EPI) 45 L (>=60) BUN/Creatinine Ratio 34.15 H (12.00-20.00) Ratio Glucose 218 H (70-110) mg/dL POC Glucose (mg/dL) 223 H (70-110) mg/dL Procalcitonin (0.02-0.09) ng/mL 04/23/24 Range/Units 11:07 WBC (4.50-10.00) X 10*3/uL RBC (4.10-5.20) X 10*6/uL Hgb (12.0-15.0) g/dL MCV (80.0-97.0) FL MCHC (32.0-37.0) g/dL RDW (11.5-14.5) % Immature Gran # (0.00-0.04) X 10*3/uL Neutrophils # (1.80-7.70) X 10*3/uL Lymphocytes # (0.90-5.00) X 10*3/uL Eosinophils # (0.04-0.35) X 10*3/uL NRBC/100 WBC Diff (0.00-0.01) X 10*3/uL Potassium (3.5-5.5) mmol/L Carbon Dioxide (21.6-31.8) mmol/L BUN (9.0-27.0) mg/dL Est GFR (CKD-EPI) (>=60) BUN/Creatinine Ratio (12.00-20.00) Ratio Glucose (70-110) mg/dL POC Glucose (mg/dL) 306 H (70-110) mg/dL Procalcitonin (0.02-0.09) ng/mL Microbiology - Last 24 Hours (Table) 04/20/24 23:20 Blood Culture - Preliminary Blood
--- NOTE | 2024-04-23 14:49 | P.PN ---
Subjective Progress Note Date: 04/23/24 68-year-old female patient who is currently being seen for shortness of breath and possible pneumonia. The patient was recently in the hospital and during her hospitalization the patient was treated for acute hypoxic tawnya failure as the patient was found to have bilateral pulmonary embolism and right lower extremity DVT. During her hospital stay, the patient was also found to have a COVID-19 infection. The patient was treated with anticoagulation. She was initially on high flow oxygen and she was weaned down to nasal cannula and ultimately, the patient discharged to rehabilitation. She also has history of COPD. The patient has also suffered a previous CVA with right-sided weakness and chronic expressive aphasia. She has hypertension and hyperlipidemia. The patient came back to the hospital yesterday because of cough and congestion and some worsening in her oxygenation. She was found to be hypoxic on 3 L of oxygen by nasal cannula. For this reason, she was sent over to the hospital. White cell count is 8.4 with a hemoglobin 15 and a platelet count of 152. Normal coagulation profile. Normal D-dimers. BUN is at 69 with a creatinine of 1.7 and a sodium levels at 138 with a potassium level of 5.7. Note that the patient sustained an acute kidney injury as her previous creatinine during her last admission was within normal limits. The troponins were negative, proBNP level w as 348, AST was 47 with an ALT of 66 and a bilirubin of 0.8. Calcium level is at 9.4. The chest x-ray done today shows no acute cardiopulmonary process. There is prominent incisional markings seen throughout the lung neri bilaterally.Most recent echocardiogram from 03/22/2024 showed normal levels of ejection fraction, no significant valvular abnormalities noted. She is currently on 8 L of O2 nasal cannula. Is also on Levaquin. Remains on anticoagulation with Eliquis. EKG showing sinus bradycardia. Heart rate is 57. The patient is seen today April 22, 2024 in follow-up on the regular medical floor. She is currently resting fairly comfortably in bed. Still requiring 8 L high flow nasal cannula to maintain O2 saturations in the 90s. She is breathing a bit easier today compared to yesterday. White count 9.6. Hemoglobin 11.8. Platelets 136. Sodium 137. Potassium 5.2. Bicarb 21. BUN 42. Creatinine 1.17. Glucose 184. She remains on bronchodilators, steroids, antibiotics in the form of Levaquin. Anticoagulated with Eliquis. Speech therapy performed a swallow evaluation and did did not find any evidence of overt aspiration. She will remain on a dysphagia level 3 chopped diet. The patient is seen today April 23, 2024 in follow-up on the regular medical floor. She is awake and alert in no acute distress. She is currently on 6 L high flow nasal cannula. She states she is breathing easier today compared to yesterday. Chest x-ray continues show interstitial changes bilaterally. She is utilizing CPAP at night. She remains on DuoNeb ventilations, Solu-Medrol. Anticoagulated with Eliquis. Antibiotics in the form of Levaquin. Blood culture revealed no growth. White count 11.4. Hemoglobin 11.8. Platelets 173. Sodium 138. Potassium 5.1. Bicarb 21. BUN 44. Creatinine 1.3. Glucose 218. Objective - Vital Signs Vital signs: Vital Signs Temp 97.8 F 04/23/24 13:46 Pulse 64 04/23/24 13:46 Resp 18 04/23/24 13:46 BP 115/64 04/23/24 13:46 Pulse Ox 96 04/23/24 13:46 FiO2 Intake & Output 04/22/24 04/23/24 04/23/24 18:59 06:59 18:59 Output Total 300 Balance -300 Output: Urine 300 Other: Voiding Method Diaper Diaper External Catheter # Voids 1 - Exam GENERAL EXAM: Alert, 68-year-old female, on 6 L high flow nasal cannula, comfortable in no apparent distress. HEAD: Normocephalic. EYES: Normal reaction of pupils, equal size. NOSE: Clear with pink turbinates. THROAT: No erythema or exudates. NECK: No masses, no JVD. CHEST: No chest wall deformity. LUNGS: Equal air entry with scattered rhonchi. CVS: S1 and S2 normal with no audible murmur, regular rhythm. ABDOMEN: No hepatosplenomegaly, normal bowel sounds, no guarding or rigidity. SPINE: No scoliosis or deformity SKIN: No rashes CENTRAL NERVOUS SYSTEM: Expressive aphasia, right-sided weakness, tone is normal in all 4 extremities. EXTREMITIES: There is no peripheral edema. No clubbing, no cyanosis. Peripheral pulses are intact. - Labs CBC & Chem 7: 04/23/24 05:31 04/23/24 10:51 Labs: Abnormal Lab Results - Last 24 Hours (Table) 04/21/24 04/22/24 04/22/24 Range/Units 14:48 16:35 20:14 WBC (4.50-10.00) X 10*3/uL RBC (4.10-5.20) X 10*6/uL Hgb (12.0-15.0) g/dL MCV (80.0-97.0) FL MCHC (32.0-37.0) g/dL RDW (11.5-14.5) % Immature Gran # (0.00-0.04) X 10*3/uL Neutrophils # (1.80-7.70) X 10*3/uL Lymphocytes # (0.90-5.00) X 10*3/uL Eosinophils # (0.04-0.35) X 10*3/uL NRBC/100 WBC Diff (0.00-0.01) X 10*3/uL Potassium (3.5-5.5) mmol/L Carbon Dioxide (21.6-31.8) mmol/L BUN (9.0-27.0) mg/dL Est GFR (CKD-EPI) (>=60) BUN/Creatinine Ratio (12.00-20.00) Ratio Glucose (70-110) mg/dL POC Glucose (mg/dL) 223 H 339 H (70-110) mg/dL Procalcitonin 0.10 H (0.02-0.09) ng/mL 04/23/24 04/23/24 04/23/24 Range/Units 05:31 05:31 06:18 WBC 11.40 H (4.50-10.00) X 10*3/uL RBC 3.89 L (4.10-5.20) X 10*6/uL Hgb 11.8 L (12.0-15.0) g/dL MCV 97.9 H (80.0-97.0) FL MCHC 31.0 L (32.0-37.0) g/dL RDW 17.0 H (11.5-14.5) % Immature Gran # 0.26 H (0.00-0.04) X 10*3/uL Neutrophils # 9.95 H (1.80-7.70) X 10*3/uL Lymphocytes # 0.60 L (0.90-5.00) X 10*3/uL Eosinophils # 0 L (0.04-0.35) X 10*3/uL NRBC/100 WBC Diff 0.03 H (0.00-0.01) X 10*3/uL Potassium 5.8 H (3.5-5.5) mmol/L Carbon Dioxide 21.0 L (21.6-31.8) mmol/L BUN 44.4 H (9.0-27.0) mg/dL Est GFR (CKD-EPI) 45 L (>=60) BUN/Creatinine Ratio 34.15 H (12.00-20.00) Ratio Glucose 218 H (70-110) mg/dL POC Glucose (mg/dL) 223 H (70-110) mg/dL Procalcitonin (0.02-0.09) ng/mL 04/23/24 Range/Units 11:07 WBC (4.50-10.00) X 10*3/uL RBC (4.10-5.20) X 10*6/uL Hgb (12.0-15.0) g/dL MCV (80.0-97.0) FL MCHC (32.0-37.0) g/dL RDW (11.5-14.5) % Immature Gran # (0.00-0.04) X 10*3/uL Neutrophils # (1.80-7.70) X 10*3/uL Lymphocytes # (0.90-5.00) X 10*3/uL Eosinophils # (0.04-0.35) X 10*3/uL NRBC/100 WBC Diff (0.00-0.01) X 10*3/uL Potassium (3.5-5.5) mmol/L Carbon Dioxide (21.6-31.8) mmol/L BUN (9.0-27.0) mg/dL Est GFR (CKD-EPI) (>=60) BUN/Creatinine Ratio (12.00-20.00) Ratio Glucose (70-110) mg/dL POC Glucose (mg/dL) 306 H (70-110) mg/dL Procalcitonin (0.02-0.09) ng/mL Microbiology - Last 24 Hours (Table) 04/20/24 23:20 Blood Culture - Preliminary Blood Assessment and Plan Assessment: Acute hypoxic respiratory failure, currently on 6 L of oxygen by nasal cannula. Exact cause is not clear. The patient has had previous stroke with expressive ap hasia and chronic right-sided weakness. No clear indication for pneumonia at this point. Pulmonary embolism is doubtful as the patient was treated for pulmonary embolism and she remains anticoagulation the patient has a low D- dimer. Considered aspiration however speech therapy evaluation did not reveal any signs or symptoms of aspiration. She remains on a chopped level 3 dysphagia diet. History of bilateral pulmonary embolism and right lower extremity DVT History of atrial fibrillation, anticoagulated with Eliquis COPD, currently inactive and stable COVID 19, 03/19/2024, and apparently this is the patient's second COVID-19 infection History of CVA with right-sided weakness. The patient has expressive aphasia History of hypertension History of hyperlipidemia Obesity Plan: The patient was seen and evaluated Labs and medications reviewed Titrate down the FiO2 as tolerated We will continue to follow I have personally seen and examined the patient, performed the documentation and the assessment and plan as written. Number of minutes spent on the visit: 10.
[2024-04-23 16:32] LABS: Glucose,Whole Blood 323 mg/dL (70-110)
[2024-04-23 19:57] LABS: Glucose,Whole Blood 295 mg/dL (70-110)
[2024-04-24 05:57] LABS: Glucose,Whole Blood 277 mg/dL (70-110)
[2024-04-24 11:09] LABS: Glucose,Whole Blood 317 mg/dL (70-110)
[2024-04-24 12:53] LABS: HCT 40.4 % (34.0-46.0); HGB 12.9 gm/dL (11.4-16.0); MCH 30.9 pg (25.0-35.0); MCHC 32.1 g/dL (31.0-37.0); MCV 96.4 fL (80.0-100.0); Mean Platelet Volume 9.8; Platelet Count 200 k/uL (150-450); RBC 4.19 m/uL (3.80-5.40); RDW 15.8 % (11.5-15.5); WBC 11.8 k/uL (3.8-10.6)
[2024-04-24 13:05] LABS: African American GFR (CKD) 68 (>60 ml/min/1.73 sqM); Anion Gap 5 mmol/L; Blood Urea Nitrogen 59 mg/dL (7-17); Calcium 9.7 mg/dL (8.4-10.2); Carbon Dioxide 23 mmol/L (22-30); Chloride 106 mmol/L (98-107); Glucose 262 mg/dL (74-99); Non-African American GFR(CKD) 59 (>60 ml/min/1.73 sqM); Sodium 134 mmol/L (137-145)
[2024-04-24 13:08] LABS: Potassium 5.7 mmol/L (3.5-5.1)
[2024-04-24 13:45] LABS: Lymphocytes # (M) 0.47 k/uL (1.0-4.8); Metamyelocytes # (M) 0.12 k/uL (0); Metamyelocytes % 1 %; Monocytes # (M) 0.35 k/uL (0-1.0); Myelocytes # (M) 0.12 k/uL (0); Myelocytes % 1 %; Neutrophils # (M) 10.86 k/uL (1.3-7.7); Neutrophils % (M) 92 %; Nucleated Red Blood Cells 0 /100 WBC (0-0); Total Cells Counted 200
--- NOTE | 2024-04-24 15:19 | XR ---
EXAMINATION TYPE: XR chest 1V portable DATE OF EXAM: 04/24/2024 COMPARISON: 04/21/2024 HISTORY: Follow-up pneumonia TECHNIQUE: Single frontal view of the chest is obtained. FINDINGS: Bilateral subsegmental basilar consolidation. Underlying COPD with apical pleural thickeni ng. Heart size normal. Atherosclerotic change of the aorta. Osteopenia. No overt failure. IMPRESSION: Basilar atelectasis favored over pneumonia correlate clinically. Findings stable.
--- NOTE | 2024-04-24 15:26 | P.PN ---
Subjective Progress Note Date: 04/24/24 Hospital course 68-year-old female with A-fib, stroke, recent diagnosis of right lower extremity DVT and bilateral PEs on Eliquis was sent in here for worsening hypoxemia and coughing. Chest x-ray showed bilateral infiltrates. Patient started on Levaquin. Pulmonology following the patient. Since patient has expressive aphasia there is concern that patient may be aspirating. Patient did have swallow eval and she was cleared for dysphagia 3 diet. Patient also had acute kidney injury. Nephrotoxic meds distance were put on hold. Patient was given IV fluids. Patient's creatinine improved. Patient seen this morning. She is denying any shortness of breath. She states that she feels well. Physical exam General examination - Alert and Oriented 3 in NAD Heart - + S1S2 no murmurs Lungs -diminished breath sounds bilaterally Abdomen soft NT ND +ve BS Extremities - No edema DISPATCHER CLERK -right upper extremity paralysis, right lower extremity weakness, expressive aphasia Psych - Calm and cooperative Assessment and plan Acute on chronic hypoxic respiratory failure Community-acquired pneumonia Blood cultures negative to date Continue levofloxacin 750 mg IV piggyback daily Supplemental oxygen as needed. Patient currently on 4 L nasal cannula and satting well. I discussed with the nurse to titrate down her oxygen. Patient was on 3 L while she was at the long term Pulmonology following Supportive care COPD exacerbation Continue patient on systemic IV steroids with methylpWill decrease me thylprednisolone to 60 mg IV every 12 hours Continue with DuoNeb History of bilateral pulmonary embolism right lower extremity DVT diagnosed 1 month ago Continue with Eliquis Hyperkalemia Potassium this morning is 5.7 Stable Diabetes mellitus Insulin sliding scale Blood glucose is between 275 and 339 I decreased the steroids which should help with the uncontrolled diabetes Hypertension Continue with amlodipine and carvedilol Acute kidney injury Avoid nephrotoxic meds Hold losartan Creatinine has normalized Will discontinue fluids History of A-fib Continue with amiodarone Continue with Eliquis Full code DVT prophylaxis on Eliquis for recent history of venous thromboembolism GI prophylaxis Protonix 40 mg p.o. daily Disposition: Anticipate patient be ready for discharge back to long term tomorrow. Objective - Vital Signs Vital signs: Vital Signs Temp 97.8 F 04/24/24 14:00 Pulse 64 04/24/24 14:00 Resp 18 04/24/24 14:00 BP 109/63 04/24/24 14:00 Pulse Ox 93 L 04/24/24 14:00 FiO2 Intake & Output 04/23/24 04/24/24 04/24/24 18:59 06:59 18:59 Output Total 900 Balance -900 Output: Urine 900 Other: Voiding Method Diaper External Catheter External Catheter # Voids 3 # Bowel Movements 1 - Labs CBC & Chem 7: 04/24/24 11:52 04/24/24 11:52 Labs: Abnormal Lab Results - Last 24 Hours (Table) 04/23/24 04/23/24 04/24/24 Range/Units 16:31 19:56 05:56 WBC (3.8-10.6) k/uL RDW (11.5-15.5) % Neutrophils # (Manual) (1.3-7.7) k/uL Lymphocytes # (Manual) (1.0-4.8) k/uL Metamyelocytes # (Man) (0) k/uL Myelocytes # (Manual) (0) k/uL Sodium (137-145) mmol/L Potassium (3.5-5.1) mmol/L BUN (7-17) mg/dL Glucose (74-99) mg/dL POC Glucose (mg/dL) 323 H 295 H 277 H (70-110) mg/dL 04/24/24 04/24/24 04/24/24 Range/Units 11:07 11:52 11:52 WBC 11.8 H (3.8-10.6) k/uL RDW 15.8 H (11.5-15.5) % Neutrophils # (Manual) 10.86 H (1.3-7.7) k/uL Lymphocytes # (Manual) 0.47 L (1.0-4.8) k/uL Metamyelocytes # (Man) 0.12 H (0) k/uL Myelocytes # (Manual) 0.12 H (0) k/uL Sodium 134 L (137-145) mmol/L Potassium 5.7 H (3.5-5.1) mmol/L BUN 59 H (7-17) mg/dL Glucose 262 H (74-99) mg/dL POC Glucose (mg/dL) 317 H (70-110) mg/dL Microbiology - Last 24 Hours (Table) 04/20/24 23:20 Blood Culture - Preliminary Blood
--- NOTE | 2024-04-24 15:45 | P.PN ---
Subjective Progress Note Date: 04/24/24 68-year-old female patient who is currently being seen for shortness of breath and possible pneumonia. The patient was recently in the hospital and during her hospitalization the patient was treated for acute hypoxic tawnya failure as the patient was found to have bilateral pulmonary embolism and right lower extremity DVT. During her hospital stay, the patient was also found to have a COVID-19 infection. The patient was treated with anticoagulation. She was initially on high flow oxygen and she was weaned down to nasal cannula and ultimately, the patient discharged to rehabilitation. She also has history of COPD. The patient has also suffered a previous CVA with right-sided weakness and chronic expressive aphasia. She has hypertension and hyperlipidemia. The patient came back to the hospital yesterday because of cough and congestion and some worsening in her oxygenation. She was found to be hypoxic on 3 L of oxygen by nasal cannula. For this reason, she was sent over to the hospital. White cell count is 8.4 with a hemoglobin 15 and a platelet count of 152. Normal coagulation profile. Normal D-dimers. BUN is at 69 with a creatinine of 1.7 and a sodium levels at 138 with a potassium level of 5.7. Note that the patient sustained an acute kidney injury as her previous creatinine during her last admission was within normal limits. The troponins were negative, proBNP level w as 348, AST was 47 with an ALT of 66 and a bilirubin of 0.8. Calcium level is at 9.4. The chest x-ray done today shows no acute cardiopulmonary process. There is prominent incisional markings seen throughout the lung neri bilaterally.Most recent echocardiogram from 03/22/2024 showed normal levels of ejection fraction, no significant valvular abnormalities noted. She is currently on 8 L of O2 nasal cannula. Is also on Levaquin. Remains on anticoagulation with Eliquis. EKG showing sinus bradycardia. Heart rate is 57. The patient is seen today April 22, 2024 in follow-up on the regular medical floor. She is currently resting fairly comfortably in bed. Still requiring 8 L high flow nasal cannula to maintain O2 saturations in the 90s. She is breathing a bit easier today compared to yesterday. White count 9.6. Hemoglobin 11.8. Platelets 136. Sodium 137. Potassium 5.2. Bicarb 21. BUN 42. Creatinine 1.17. Glucose 184. She remains on bronchodilators, steroids, antibiotics in the form of Levaquin. Anticoagulated with Eliquis. Speech therapy performed a swallow evaluation and did did not find any evidence of overt aspiration. She will remain on a dysphagia level 3 chopped diet. The patient is seen today April 23, 2024 in follow-up on the regular medical floor. She is awake and alert in no acute distress. She is currently on 6 L high flow nasal cannula. She states she is breathing easier today compared to yesterday. Chest x-ray continues show interstitial changes bilaterally. She is utilizing CPAP at night. She remains on DuoNeb ventilations, Solu-Medrol. Anticoagulated with Eliquis. Antibiotics in the form of Levaquin. Blood culture revealed no growth. White count 11.4. Hemoglobin 11.8. Platelets 173. Sodium 138. Potassium 5.1. Bicarb 21. BUN 44. Creatinine 1.3. Glucose 218. The patient is seen today April 24, 2024 in follow-up on the regular medical floor. She is currently sitting up in a chair. Awake and alert in no acute distress. She is maintaining O2 saturations in the 90s on 5 L/min per nasal cannula. She states she is swallowing well no problems with aspiration. No shortness of breath. No chest pain. No cough or congestion. Her right side remains weak from his CVA in August 2023. She was also noted to have a pulmon aaron embolism in February 2024. Remains on Eliquis. Continued on bronchodilators. Continued on steroids. Follow-up chest x-ray reveals basilar atelectasis favored over pneumonia. Is currently on Levaquin. Blood cultures revealed no growth. White count 11.8. Hemoglobin 12.9. Platelets 200. Sodium 134. Potassium 5.7. Bicarb 23. BUN 59. Creatinine 0.99. Glucose 262. Objective - Vital Signs Vital signs: Vital Signs Temp 97.8 F 04/24/24 14:00 Pulse 64 04/24/24 14:00 Resp 18 04/24/24 14:00 BP 109/63 04/24/24 14:00 Pulse Ox 93 L 04/24/24 14:00 FiO2 Intake & Output 04/23/24 04/24/24 04/24/24 18:59 06:59 18:59 Output Total 900 Balance -900 Output: Urine 900 Other: Voiding Method Diaper External Catheter External Catheter # Voids 3 # Bowel Movements 1 - Exam GENERAL EXAM: Alert, pleasant 68-year-old female, up in a chair, on 5 L high flow nasal cannula, comfortable in no apparent distress. HEAD: Normocephalic. EYES: Normal reaction of pupils, equal size. NOSE: Clear with pink turbinates. THROAT: No erythema or exudates. NECK: No masses, no JVD. CHEST: No chest wall deformity. LUNGS: Equal air entry with scattered rhonchi. CVS: S1 and S2 normal with no audible murmur, regular rhythm. ABDOMEN: No hepatosplenomegaly, normal bowel sounds, no guarding or rigidity. SPINE: No scoliosis or deformity SKIN: No rashes CENTRAL NERVOUS SYSTEM: Expressive aphasia, right-sided weakness, tone is normal in all 4 extremities. EXTREMITIES: There is no peripheral edema. No clubbing, no cyanosis. Peripheral pulses are intact. - Labs CBC & Chem 7: 04/24/24 11:52 04/24/24 11:52 Labs: Abnormal Lab Results - Last 24 Hours (Table) 04/23/24 04/23/24 04/24/24 Range/Units 16:31 19:56 05:56 WBC (3.8-10.6) k/uL RDW (11.5-15.5) % Neutrophils # (Manual) (1.3-7.7) k/uL Lymphocytes # (Manual) (1.0-4.8) k/uL Metamyelocytes # (Man) (0) k/uL Myelocytes # (Manual) (0) k/uL Sodium (137-145) mmol/L Potassium (3.5-5.1) mmol/L BUN (7-17) mg/dL Glucose (74-99) mg/dL POC Glucose (mg/dL) 323 H 295 H 277 H (70-110) mg/dL 04/24/24 04/24/24 04/24/24 Range/Units 11:07 11:52 11:52 WBC 11.8 H (3.8-10.6) k/uL RDW 15.8 H (11.5-15.5) % Neutrophils # (Manual) 10.86 H (1.3-7.7) k/uL Lymphocytes # (Manual) 0.47 L (1.0-4.8) k/uL Metamyelocytes # (Man) 0.12 H (0) k/uL Myelocytes # (Manual) 0.12 H (0) k/uL Sodium 134 L (137-145) mmol/L Potassium 5.7 H (3.5-5.1) mmol/L BUN 59 H (7-17) mg/dL Glucose 262 H (74-99) mg/dL POC Glucose (mg/dL) 317 H (70-110) mg/dL Microbiology - Last 24 Hours (Table) 04/20/24 23:20 Blood Culture - Preliminary Blood Assessment and Plan Assessment: Acute hypoxic respiratory failure, currently on 5 L of oxygen by nasal cannula. Exact cause is not clear. The patient has had previous stroke with expressive aphasia and chronic right-sided weakness. No clear indication for pneumonia at this point. Pulmonary embolism is doubtful as the patient was treated for pulmonary embolism and she remains anticoagulation the patient has a low D- dimer. Considered aspiration however speech therapy evaluation did not reveal any signs or symptoms of aspiration. She remains on a chopped level 3 dysphagia diet. Follow-up chest x-ray reveals evidence of atelectasis favored over pneumonia. Procalcitonin just 0.10. Treated with Levaquin. History of bilateral pulmonary embolism and right lower extremity DVT History of atrial fibrillation, anticoagulated with Eliquis Pulmonary embolism in February 2024, remains on Eliquis COPD, currently inactive and stable COVID 19, 03/19/2024, and apparently this is the patient's second COVID-19 infection History of CVA with right-sided weakness August 2023. The patient has expressive aphasia History of hypertension History of hyperlipidemia Obesity Plan: The patient was seen and evaluated Chest x-ray, labs and medications reviewed Titrate down the FiO2 as tolerated Discontinue Levaquin Increase her activity as tolerated We will continue to follow Plan is to return to [facility] at discharge I have personally seen and examined the patient, performed the documentation and the assessment and plan as written. Number of minutes spent on the visit: 10.
[2024-04-24 16:09] LABS: Glucose,Whole Blood 377 mg/dL (70-110)
[2024-04-24 20:52] LABS: Glucose,Whole Blood 306 mg/dL (70-110)
[2024-04-24] MEDS: methylPREDNISolone SOD SUCCI 125 MG/2 ML VIAL IV SCH (20:59)
[2024-04-25 05:55] LABS: Glucose,Whole Blood 253 mg/dL (70-110)
[2024-04-25 08:00] VITALS: RESP 18
[2024-04-25 09:04] LABS: Blood Urea Nitrogen 58.8 mg/dL (9.0-27.0); Calcium 9.7 mg/dL (8.7-10.3); Carbon Dioxide 22.3 mmol/L (21.6-31.8); Chloride 105 mmol/L (96-109); Glucose 229 mg/dL (70-110); Potassium 5.4 mmol/L (3.5-5.5); Sodium 137 mmol/L (135-145)
[2024-04-25 09:06] LABS: HCT 37.2 % (37.2-46.3); HGB 11.7 g/dL (12.0-15.0); MCH 30.1 pg (27.0-32.0); MCHC 31.5 g/dL (32.0-37.0); MCV 95.6 FL (80.0-97.0); Mean Platelet Volume 11.3 FL (9.5-12.2); NRBC Per 100 WBC 0.02 X 10*3/uL (0.00-0.01); Platelet Count 195 X 10*3/uL (140-440); RBC 3.89 X 10*6/uL (4.10-5.20); WBC 10.22 X 10*3/uL (4.50-10.00)
[2024-04-25 11:04] LABS: Basophils # (M) 0 X 10*3/uL (0.00-0.10); Eosinophils # (M) 0 X 10*3/uL (0.04-0.35); Monocytes # (M) 0.51 X 10*3/uL (0.20-1.00); Myelocytes % 2 % (0-0); Neutrophils % (M) 91 %; Nucleated Red Blood Cells 1 /100 WBCS
[2024-04-25 11:30] LABS: Glucose,Whole Blood 224 mg/dL (70-110)
--- NOTE | 2024-04-25 12:37 | P.DS ---
Providers Date of admission: 04/20/24 22:09 Attending physician: Eliseo Mijares MD Consults: 04/20/24 22:00 Consult Physician Routine Consulting Provider: Merry Rubin Consult Reason/Comments: hypoxia Do you want consulting provider notified?: Yes Primary care physician: Farzad Deluca Hospital Course: Discharge Diagnosis: Acute on chronic hypoxic respiratory failure Community-acquired pneumonia COPD exacerbation Recent admission for bilateral pulmonary embolism with right lower extremity DVT Hyperkalemia likely due to hemolysis Diabetes mellitus Hypertension Acute kidney injury History of atrial fibrillation Hospital Course: 68-year-old female with A-fib, stroke, recent diagnosis of right lower extremity DVT and bilateral PEs on Eliquis was sent in here for worsening hypoxemia and coughing. Chest x-ray showed bilateral infiltrates. Patient started on Levaquin. Pulmonology following the patient. Since patient has expressive a phasia there is concern that patient may be aspirating. Patient did have swallow eval and she was cleared for dysphagia 3 diet. Patient also had acute kidney injury. Patient was given IV fluids.. Her losartan and Lasix were held. Patient's renal function improved. Patient will be restarted on Lasix on discharge at a lower dose of 20 mg. I will continue to hold her losartan on discharge because her blood pressure was normotensive while we are holding it during this admission. Patient's procalcitonin was within normal limits. Per pulmonology patient did not have any clear evidence of pneumonia. However I decided treated for pneumonia since patient was symptomatic and chest x-ray findings also concerning for pneumonia. Patient completed her 5-day antibiotic course of Levaquin. Patient was also treated for COPD exacerbation with steroids and breathing treatment. Patient will be discharged on prednisone 50 mg for 3 more days. Patient deemed stable to return back to snf facility. At the time of discharge patient was weaned down to 4 L nasal cannula. Please continue to wean down her oxygen gradually while in rehab. Patient seen and examined at bedside.[] General examination - Alert and Oriented 3 in NAD Heart - + S1S2 no murmurs Lungs -diminished breath sounds bilaterally Abdomen soft NT ND +ve BS Extremities - No edema BRAILLE TYPIST -right upper extremity paralysis, right lower extremity weakness, expressive aphasia Psych - Calm and cooperative A total of [40] minutes of time were spent preparing this complex discharge summary . Patient Condition at Discharge: Fair Plan - Discharge Summary Discharge Rx Participant: No New Discharge Prescriptions: New predniSONE 50 mg PO DAILY 2 Days #2 tab Continue bisacodyL [Dulcolax] 10 mg RECTAL DAILY PRN PRN Reason: Constipation carvediloL [Coreg] 25 mg PO BID@0800,1700 Albuterol Inhaler [Ventolin Hfa Inhaler] 2 puff INHALATION RT-Q2H PRN each PRN Reason: Shortness Of Breath Or Wheezing Loperamide HCl [Imodium A-D] 2 mg PO QID PRN PRN Reason: after each loose stool Ipratropium-Albuterol Nebulize [Duoneb 0.5 mg-3 mg/3 ml Soln] 3 ml INHALATION RT-QID@00,06,12,18 Famotidine [Pepcid] 20 mg PO BID@0800,1700 Pantoprazole [Protonix] 40 mg PO DAILY@0700 Promethazine Hcl Solution 25 mg IM Q6H PRN PRN Reason: Nausea And Vomiting Na Phos,M-B/Na Phos,Di-Ba [Fleet Adult] 133 ml RECTAL DAILY PRN PRN Reason: Constipation Magnesium Hydroxide [Milk of Magnesia Concentrate] 7,200 mg PO Q48H PRN PRN Reason: Constipation Acetaminophen [Tylenol Arthritis] 650 mg PO Q4H PRN PRN Reason: GENERAL DISCOMFORT amLODIPine [Norvasc] 5 mg PO BID@0800,1700 Amiodarone [Cordarone] 200 mg PO BID@0800,1700 Aspirin 81 mg PO DAILY@0800 INSULIN ASPART (NovoLOG) [NovoLOG (formulary)] See Protocol SQ TID@0700,1100,1630 Liquacel 30 ml PO BID@0800,1700 Apixaban [Eliquis] 5 mg PO BID@0800,1700 Changed polyethylene glycoL 3350 [Miralax] 17 gm PO DAILY@0800 PRN 30 Days #30 PRN Reason: Constipation Furosemide [Lasix] 20 mg PO DAILY #0 Discontinued Losartan Potassium [Cozaar] 100 mg PO DAILY@0800 Sulfamethox-Tmp 800-160Mg [Bactrim DS 800-160 mg] 1 tab PO BID@0600,1800 Discharge Medication List Acetaminophen [Tylenol Arthritis] 650 mg PO Q4H PRN 03/22/24 [History] Amiodarone [Cordarone] 200 mg PO BID@0800,1700 03/22/24 [History] Aspirin 81 mg PO DAILY@0800 03/22/24 [History] Magnesium Hydroxide [Milk of Magnesia Concentrate] 7,200 mg PO Q48H PRN 03/22/24 [History] Na Phos,M-B/Na Phos,Di-Ba [Fleet Adult] 133 ml RECTAL DAILY PRN 03/22/24 [History] amLODIPine [Norvasc] 5 mg PO BID@0800,1700 03/22/24 [History] bisacodyL [Dulcolax] 10 mg RECTAL DAILY PRN 03/22/24 [History] carvediloL [Coreg] 25 mg PO BID@0800,17003/22/24 [History] Albuterol Inhaler [Ventolin Hfa Inhaler] 2 puff INHALATION RT-Q2H PRN each 04/01/24 [Rx] Apixaban [Eliquis] 5 mg PO BID@0800,1700 04/20/24 [History] Famotidine [Pepcid] 20 mg PO BID@0800,1700 04/20/24 [History] INSULIN ASPART (NovoLOG) [NovoLOG (formulary)] See Protocol SQ TID@0700,1100,1630 04/20/24 [History] Ipratropium-Albuterol Nebulize [Duoneb 0.5 mg-3 mg/3 ml Soln] 3 ml INHALATION RT-QID@00,06,12,18 04/20/24 [History] Liquacel 30 ml PO BID@0800,1700 04/20/24 [History] Loperamide HCl [Imodium A-D] 2 mg PO QID PRN 04/20/24 [History] Pantoprazole [Protonix] 40 mg PO DAILY@0700 04/20/24 [History] Promethazine Hcl Solution 25 mg IM Q6H PRN 04/20/24 [History] Furosemide [Lasix] 20 mg PO DAILY #0 04/25/24 [Rx] polyethylene glycoL 3350 [Miralax] 17 gm PO DAILY@0800 PRN 30 Days #30 04/25/24 [Rx] predniSONE 50 mg PO DAILY 2 Days #2 tab 04/25/24 [Rx] Follow up Appointment(s)/Referral(s): Farzad Deluca DO [Primary Care Provider] - 1-2 days Aris Quinones MD [STAFF PHYSICIAN] - 1 Week Discharge Disposition: TRANSFER TO SNF/ECF
[2024-04-25 13:21] VITALS: BMI 29.0
[2024-04-25 14:13] VITALS: BP 130/64; TEMP 97.6
--- NOTE | 2024-04-25 16:18 | P.PN ---
Subjective Progress Note Date: 04/25/24 68-year-old female patient who is currently being seen for shortness of breath and possible pneumonia. The patient was recently in the hospital and during her hospitalization the patient was treated for acute hypoxic tawnya failure as the patient was found to have bilateral pulmonary embolism and right lower extremity DVT. During her hospital stay, the patient was also found to have a COVID-19 infection. The patient was treated with anticoagulation. She was initially on high flow oxygen and she was weaned down to nasal cannula and ultimately, the patient discharged to rehabilitation. She also has history of COPD. The patient has also suffered a previous CVA with right-sided weakness and chronic expressive aphasia. She has hypertension and hyperlipidemia. The patient came back to the hospital yesterday because of cough and congestion and some worsening in her oxygenation. She was found to be hypoxic on 3 L of oxygen by nasal cannula. For this reason, she was sent over to the hospital. White cell count is 8.4 with a hemoglobin 15 and a platelet count of 152. Normal coagulation profile. Normal D-dimers. BUN is at 69 with a creatinine of 1.7 and a sodium levels at 138 with a potassium level of 5.7. Note that the patient sustained an acute kidney injury as her previous creatinine during her last admission was within normal limits. The troponins were negative, proBNP level w as 348, AST was 47 with an ALT of 66 and a bilirubin of 0.8. Calcium level is at 9.4. The chest x-ray done today shows no acute cardiopulmonary process. There is prominent incisional markings seen throughout the lung neri bilaterally.Most recent echocardiogram from 03/22/2024 showed normal levels of ejection fraction, no significant valvular abnormalities noted. She is currently on 8 L of O2 nasal cannula. Is also on Levaquin. Remains on anticoagulation with Eliquis. EKG showing sinus bradycardia. Heart rate is 57. The patient is seen today April 22, 2024 in follow-up on the regular medical floor. She is currently resting fairly comfortably in bed. Still requiring 8 L high flow nasal cannula to maintain O2 saturations in the 90s. She is breathing a bit easier today compared to yesterday. White count 9.6. Hemoglobin 11.8. Platelets 136. Sodium 137. Potassium 5.2. Bicarb 21. BUN 42. Creatinine 1.17. Glucose 184. She remains on bronchodilators, steroids, antibiotics in the form of Levaquin. Anticoagulated with Eliquis. Speech therapy performed a swallow evaluation and did did not find any evidence of overt aspiration. She will remain on a dysphagia level 3 chopped diet. The patient is seen today April 23, 2024 in follow-up on the regular medical floor. She is awake and alert in no acute distress. She is currently on 6 L high flow nasal cannula. She states she is breathing easier today compared to yesterday. Chest x-ray continues show interstitial changes bilaterally. She is utilizing CPAP at night. She remains on DuoNeb ventilations, Solu-Medrol. Anticoagulated with Eliquis. Antibiotics in the form of Levaquin. Blood culture revealed no growth. White count 11.4. Hemoglobin 11.8. Platelets 173. Sodium 138. Potassium 5.1. Bicarb 21. BUN 44. Creatinine 1.3. Glucose 218. The patient is seen today April 24, 2024 in follow-up on the regular medical floor. She is currently sitting up in a chair. Awake and alert in no acute distress. She is maintaining O2 saturations in the 90s on 5 L/min per nasal cannula. She states she is swallowing well no problems with aspiration. No shortness of breath. No chest pain. No cough or congestion. Her right side remains weak from his CVA in August 2023. She was also noted to have a pulmon aaron embolism in February 2024. Remains on Eliquis. Continued on bronchodilators. Continued on steroids. Follow-up chest x-ray reveals basilar atelectasis favored over pneumonia. Is currently on Levaquin. Blood cultures revealed no growth. White count 11.8. Hemoglobin 12.9. Platelets 200. Sodium 134. Potassium 5.7. Bicarb 23. BUN 59. Creatinine 0.99. Glucose 262. The patient is seen today April 25, 2024 in follow-up on the regular medical floor. She is currently awake and alert in no acute distress. Sitting up in a chair at the bedside. Maintaining good O2 saturations in the 90s on 4 L/min per nasal cannula. Blood cultures revealed no growth. White count 10.2. Hemoglobin 9.7. Platelets 195. Sodium 137. Potassium 5.4. Bicarb 22. BUN 59. Creatinine 1.4. Glucose 229. She is continued on DuoNeb inhalations, Solu-Medrol. Anticoagulated with Eliquis. Completed Levaquin. Objective - Vital Signs Vital signs: Vital Signs Temp 97.6 F 04/25/24 12:49 Pulse 64 04/25/24 13:37 Resp 18 04/25/24 12:49 BP 130/64 04/25/24 12:49 Pulse Ox 95 04/25/24 12:49 FiO2 Intake & Output 04/24/24 04/25/24 04/25/24 18:59 06:59 18:59 Output Total 650 500 Balance -650 -500 Weight 86.636 kg Output: Urine 650 500 Other: Voiding Method External Catheter External Catheter External Catheter # Bowel Movements 1 - Exam GENERAL EXAM: Alert, 68-year-old female, up in a chair, on 4 L high flow nasal cannula, in no apparent distress. HEAD: Normocephalic. EYES: Normal reaction of pupils, equal size. NOSE: Clear with pink turbinates. THROAT: No erythema or exudates. NECK: No masses, no JVD. CHEST: No chest wall deformity. LUNGS: Equal air entry with scattered rhonchi. CVS: S1 and S2 normal with no audible murmur, regular rhythm. ABDOMEN: No hepatosplenomegaly, normal bowel sounds, no guarding or rigidity. SPINE: No scoliosis or deformity SKIN: No rashes CENTRAL NERVOUS SYSTEM: Expressive aphasia, right-sided weakness, tone is normal in all 4 extremities. EXTREMITIES: There is no peripheral edema. No clubbing, no cyanosis. Peripheral pulses are intact. - Labs CBC & Chem 7: 04/25/24 03:45 04/25/24 03:45 Labs: Abnormal Lab Results - Last 24 Hours (Table) 04/24/24 04/25/24 04/25/24 Range/Units 20:50 03:45 03:45 WBC 10.22 H (4.50-10.00) X 10*3/uL RBC 3.89 L (4.10-5.20) X 10*6/uL Hgb 11.7 L (12.0-15.0) g/dL MCHC 31.5 L (32.0-37.0) g/dL RDW 17.0 H (11.5-14.5) % Neutrophils # (Manual) 9.30 H (1.80-7.70) X 10*3/uL Lymphocytes # (Manual) 0.20 L (0.90-5.00) X 10*3/uL Eosinophils # (Manual) 0 L (0.04-0.35) X 10*3/uL NRBC/100 WBC Diff 0.02 H (0.00-0.01) X 10*3/uL BUN 58.8 H (9.0-27.0) mg/dL Est GFR (CKD-EPI) 41 L (>=60) BUN/Creatinine Ratio 42.00 H (12.00-20.00) Ratio Glucose 229 H (70-110) mg/dL POC Glucose (mg/dL) 306 H (70-110) mg/dL 04/25/24 04/25/24 Range/Units 05:53 11:28 WBC (4.50-10.00) X 10*3/uL RBC (4.10-5.20) X 10*6/uL Hgb (12.0-15.0) g/dL MCHC (32.0-37.0) g/dL RDW (11.5-14.5) % Neutrophils # (Manual) (1.80-7.70) X 10*3/uL Lymphocytes # (Manual) (0.90-5.00) X 10*3/uL Eosinophils # (Manual) (0.04-0.35) X 10*3/uL NRBC/100 WBC Diff (0.00-0.01) X 10*3/uL BUN (9.0-27.0) mg/dL Est GFR (CKD-EPI) (>=60) BUN/Creatinine Ratio (12.00-20.00) Ratio Glucose (70-110) mg/dL POC Glucose (mg/dL) 253 H 224 H (70-110) mg/dL Microbiology - Last 24 Hours (Table) 04/20/24 23:20 Blood Culture - Preliminary Blood Assessment and Plan Assessment: Acute hypoxic respiratory failure, currently on 5 L of oxygen by nasal cannula. Exact cause is not clear. The patient has had previous stroke with expressive aphasia and chronic right-sided weakness. No clear indication for pneumonia at this point. Pulmonary embolism is doubtful as the patient was treated for pulmonary embolism and she remains anticoagulation the patient has a low D- dimer. Considered aspiration however speech therapy evaluation did not reveal any signs or symptoms of aspiration. She remains on a chopped level 3 dysphagia diet. Follow-up chest x-ray reveals evidence of atelectasis favored over pneumonia. Procalcitonin just 0.10. Treated with Levaquin. History of bilateral pulmonary embolism and right lower extremity DVT History of atrial fibrillation, anticoagulated with Eliquis Pulmonary embolism in February 2024, remains on Eliquis COPD, currently inactive and stable COVID 19, 03/19/2024, and apparently this is the patient's second COVID-19 infection History of CVA with right-sided weakness August 2023. The patient has expressive aphasia History of hypertension History of hyperlipidemia Obesity Plan: The patient was seen and evaluated Labs and medications reviewed Titrate down the FiO2 as tolerated Continue bronchodilators Transition to a prednisone taper Plan is to return to [facility] at discharge I have personally seen and examined the patient, performed the documentation and the assessment and plan as written. Number of minutes spent on the visit: 10.
[2024-04-25 16:51] LABS: Glucose,Whole Blood 260 mg/dL (70-110)
[2024-04-25 17:30] VITALS: PULSE 66
== END 2024-04-25 18:09 | DRG 193 ==
LOC: EC 17:13 → 4SSUR 22:09
PROVIDERS: ADMIT Internal Medicine; ATTEND Internal Medicine
DX: J18.8 Other pneumonia, unspecified organism (principal); J96.21 Acute and chronic respiratory failure with hypoxia; I69.351 Hemiplegia and hemiparesis following cerebral infarction affecting right dominant side; J44.1 Chronic obstructive pulmonary disease with (acute) exacerbation; J44.0 Chronic obstructive pulmonary disease with (acute) lower respiratory infection; J98.11 Atelectasis; N17.9 Acute kidney failure, unspecified; I48.20 Chronic atrial fibrillation, unspecified; E11.9 Type 2 diabetes mellitus without complications; I10 Essential (primary) hypertension; E87.5 Hyperkalemia; R32 Unspecified urinary incontinence; R13.10 Dysphagia, unspecified; I69.320 Aphasia following cerebral infarction; Z86.16 Personal history of COVID-19; Z79.01 Long term (current) use of anticoagulants; Z20.822 Contact with and (suspected) exposure to COVID-19; Z79.82 Long term (current) use of aspirin; Z79.899 Other long term (current) drug therapy; Z86.718 Personal history of other venous thrombosis and embolism; Z86.711 Personal history of pulmonary embolism; Z79.4 Long term (current) use of insulin
CPT/HCPCS: 36415; 71045; 80048; 80053; 83036; 83605; 83735; 83880; 84132; 84145; 84484; 85025; 85379; 85610; 85730; 87040; 87449; 93005; 94640; 94760; 96361; 96365; 96375; 99291

== ENCOUNTER → 2024-07-11 | Outpatient (CLI) | payer MEDICARE, BC ==
--- NOTE | 2024-07-31 20:03 | CT ---
Patient: Emiliana Miles L Ordering Physician: Unknown, Unknown ID: [id number] Phone, Pager: Phone: N/A Pager: N/A : 1955 Age/Gender: 68Y, F Primary Location: N/A Procedure: CTA CHEST Study D ate: 07/11/2024 1:07:00 PM EXAMINATION TYPE: CT angio chest CT DLP: 500 mGycm, Automated exposure control for dose reduction was used. DATE OF EXAM: 07/19/2024 11:09 AM COMPARISON: 03/22/2024 CLINICAL INDICATION: Pulmonary embolus TECHNIQUE/CONTRAST: CTA scan of the thorax is performed with IV Contrast, patient injected with 100 mL of Isovue 370, MIP images are created and reviewed these are created on a separate workstation.. FINDINGS: Pulmonary Artery: There is no evidence for a filling defect within the pulmonary vasculature to sugge st acute pulmonary embolism. The pulmonary artery is of normal size. Lungs/Pleura: Moderate centrilobular emphysema changes in the lungs. Atelectasis along the posterior aspect of the right lower lung. No evidence of focal consolidation, pleural effusion or pneumothorax. Airway: Large airways are patent. Heart: Heart is within normal limits for size. Atherosclerosis of the arterial vasculature. Vasculature: Mild atherosclerotic calcifications are present throughout the aorta and its branches. Mediastinum: No gross evidence of adenopathy. Musculoskeletal: Mild degenerative disc disease changes are present throughout the thoracolumbar spin e. Soft Tissues/lymph nodes: Unremarkable. Lower neck: No significant findings. Upper Abdomen: The gallbladder appears surgically absent. Atrophy changes of the pancreatic parenchym a. IMPRESSION: 1. Previous pulmonary emboli are no longer visualized. 2. Moderate emphysema. 3. Consolidation in the right lung base along the periphery likely due to atelectasis. Follow up recommendations for incidental pulmonary nodules, if there are any, are per [employer] or [employer]. https://radiopaedia.org/articles/gvjlmibebi-xsptsjo-wpyejaket-ezbjaf-[email or web address]-[email or web address]?lang=us
== END | disposition home or self-care (01) ==
LOC: RADCTMAIN 10:43
PROVIDERS: ATTEND Internal Medicine Critical Care Medicine
DX: I26.99 Other pulmonary embolism without acute cor pulmonale (principal); J43.9 Emphysema, unspecified; Z86.711 Personal history of pulmonary embolism
CPT/HCPCS: 71275; Q9967

== ENCOUNTER 2025-02-10 14:13 | Emergency (ER) | payer MEDICARE, BC ==
--- NOTE | 2025-02-10 15:57 | ED ---
General Adult HPI - General Chief complaint: Urogenital Stated complaint: Abnormal labs Time Seen by Provider: 02/10/25 15:12 Source: patient Mode of arrival: ambulatory Limitations: no limitations - History of Present Illness Initial comments: Dictation was produced using [employer] dictation software. please excuse any grammatical, word or spelling errors. Chief Complaint: 69-year-old female with concerns of hematuria History of Present Illness: Patient 69-year-old female she is debilitated secondary to a stroke. For the last 2 months patient has been having abnormal urine color. at the bedside provides majority of history present illnes s. They do have a home health care visiting nurse that noticed that patient had what appeared to be bloody urine in her diaper in the commode. Patient denies any pelvic pressure or dysuria. Denies any urinary urgency or frequency. The ROS documented in this emergency department record has been reviewed and confirmed by me. Those systems with pertinent positive or negative responses have been documented in the HPI. All other systems are other negative and/or noncontributory. - Related Data Home Medications Medication Instructions Recorded Confirmed Acetaminophen [Tylenol Arthritis] 650 mg PO Q4H PRN 03/22/24 04/20/24 Amiodarone [Cordarone] 200 mg PO BID@0800,1700 03/22/24 04/20/24 Aspirin 81 mg PO DAILY@0800 03/22/24 04/20/24 Magnesium Hydroxide [Milk of 7,200 mg PO Q48H PRN 03/22/24 04/20/24 Magnesia Concentrate] Na Phos,M-B/Na Phos,Di-Ba [Fleet 133 ml RECTAL DAILY PRN 03/22/24 04/20/24 Adult] amLODIPine [Norvasc] 5 mg PO BID@0800,1700 03/22/24 04/20/24 bisacodyL [Dulcolax] 10 mg RECTAL DAILY PRN 03/22/24 04/20/24 carvediloL [Coreg] 25 mg PO BID@0800,1700 03/22/24 04/20/24 Apixaban [Eliquis] 5 mg PO BID@0800,1700 04/20/24 04/20/24 Famotidine [Pepcid] 20 mg PO BID@0800,1700 04/20/24 04/20/24 INSULIN ASPART (NovoLOG) [NovoLOG See Protocol SQ TID@0700,1100,1630 04/20/24 04/20/24 (formulary)] Ipratropium-Albuterol Nebulize 3 ml INHALATION RT-QID@00,06,12,18 04/20/24 04/20/24 [Duoneb 0.5 mg-3 mg/3 ml Soln] Liquacel 30 ml PO BID@0800,1700 04/20/24 04/20/24 Loperamide HCl [Imodium A-D] 2 mg PO QID PRN 04/20/24 04/20/24 Pantoprazole [Protonix] 40 mg PO DAILY@0700 04/20/24 04/20/24 Promethazine Hcl Solution 25 mg IM Q6H PRN 04/20/24 04/20/24 Previous Rx's Medication Instructions Recorded Albuterol Inhaler [Ventolin Hfa 2 puff INHALATION RT-Q2H PRN each 04/01/24 Inhaler] Furosemide [Lasix] 20 mg PO DAILY #0 04/25/24 polyethylene glycoL 3350 [Miralax] 17 gm PO DAILY@0800 PRN 30 Days #30 04/25/24 predniSONE 50 mg PO DAILY 2 Days #2 tab 04/25/24 Cephalexin [Keflex] 500 mg PO Q12HR 7 Days #14 cap 02/10/25 Allergies Allergy/AdvReac Type Severity Reaction Status Date / Time No Known Allergies Allergy Verified 02/10/25 14:29 Review of Systems ROS Statement: Those systems with pertinent positive or pertinent negative responses have been documented in the HPI. ROS Other: All systems not noted in ROS Statement are negative. Past Medical History Past Medical History: CVA/TIA, Deep Vein Thrombosis (DVT), Hyperlipidemia, Hypertension, Pneumonia, Pulmonary Embolus (PE) Additional Past Medical History / Comment(s): MURMUR WHEN YOUNGER, MILD URINARY INCONT-WEARS A PAD. History of Any Multi-Drug Resistant Organisms: None Reported Past Surgical History: Bladder Surgery, Cholecystectomy Additional Past Surgical History / Comment(s): bladder suspension ,EGD Past Anesthesia/Blood Transfusion Reactions: No Reported Reaction Additional Past Anesthesia/Blood Transfusion Reaction / Comment(s): HAD BLOOD TRANSFUSION AFTER CHILDBIRTH-NO REACTION Past Psychological History: No Psychological Hx Reported Smoking Status: Never smoker Past Alcohol Use History: None Reported Past Drug Use History: None Reported - Past Family History Mother Family Medical History: Cancer Father Family Medical History: Congestive Heart Failure (CHF) General Exam - General Exam Comments Initial Comments: General: Well-appearing, nontoxic, no acute distress. Head: Normocephalic, atraumatic Eyes: PERRLA, EOMI ENT: Airway patent Chest: Nonlabored breathing Abdomen: Soft nontender Skin: No visual rash, normal skin tone Neuro: Alert and oriented 3 Musculoskeletal: No gross abnormalities Limitations: no limitations Course Vital Signs 02/10/25 14:25 Temperature 98.1 F Pulse Rate 45 L Respiratory 16 Rate Blood Pressure 112/69 O2 Sat by Pulse 95 Oximetry EKG Findings - EKG Comments: EKG Findings:: My EKG interpretation: Ventricular rate 46, sinus bradycardia,. 130, QRS 93, QTc 417. No NH prolongation, no QTC prolongation, no ST or T-wave changes noted. . Overall, this EKG is unremarkable Medical Decision Making - Medical Decision Making Was pt. sent in by a medical professional or institution (, PA, LEATHER CARVER, urgent care, hospital, or shelter...) When possible be specific @ -No Did you speak to anyone other than the patient for history (EMS, parent, family, police, friend...)? What history was obtained from this source @ -See above Did you review nursing and triage notes (agree or disagree)? Why? @ -I reviewed and agree with nursing and triage notes Were old charts reviewed (outside hosp., previous admission, EMS record, old EKG, old radiological studies, urgent care reports/EKG's, shelter records)? Report findings @ -No old charts were reviewed Differential Diagnosis (chest pain, altered mental status, abdominal pain women, abdominal pain men, vaginal bleeding, musculoskeletal, weakness, fever, dyspnea, syncope, headache, dizziness, GI bleed, back pain, seizure, CVA, palpatations, mental health)? @ -UTI, kidney stone, hematuria EKG interpreted by me (3pts min.). @ -None done X-rays interpreted by me (1pt min.). @ -None done CT interpreted by me (1pt min.). @ -None done U/S interpreted by me (1pt. min.). @ -None done What testing was considered but not performed or refused? (CT, X-rays, U/S, labs)? Why? @ -None What meds were considered but not given or refused? Why? @ -None Was smoking cessation discussed for >3mins.? @ -No Were there social determinants of health that impacted care today? How? (Homelessness, low income, unemployed, alcoholism, drug addiction, transportation, low edu. Level, literacy, decrease access to med. care, fpc, rehab)? @ -No Was there de-escalation of care discussed even if they declined (Discuss DNR or withdrawal of care, Hospice)? DNR status @ -No What co-morbidities impacted this encounter? (DM, HTN, Smoking, COPD, CAD, Cancer, CVA, ARF, Chemo, Hep., AIDS, mental health diagnosis, sleep apnea, morbid obesity)? @ -CVA, debility Was patient admitted / discharged? Hospital course, mention meds given and route, prescriptions, significant lab abnormalities, going to OR and other pertinent info. @ -61-year-old female presents emergency department for concerns of hematuria and abnormal urine color. Vital signs upon arrival are within acceptable limits. Patient is afebrile. Patient no acute distress. Laboratory evaluation obtained. Hemoglobin stable. No leukocytosis. Metabolic panel is negative. Coag panel is negative. Urinalysis shows UTI. She has no flank pain to suggest pyelonephritis. She has no objective evidence to suggest sepsis. Patient reevaluated bedside at 5:09 PM. Labs were discussed with patient and at the bedside. Return precautions discussed advised follow-up with primary care doctor. Patient given dose of ceftriaxone sent for Keflex prescription. Did you discuss the management of the patient with other professionals (professionals i.e. , PA, LEATHER CARVER, lab, RT, psych nurse, social sciences department chair, sleever, teacher, customer service officer, watch case polisher)? Give summary @ -No Was critical care preformed (if so, how long)? @ -No Undiagnosed new problem with uncertain prognosis? @ -No Drug Therapy requiring intensive monitoring for toxicity (Heparin, Nitro, Insulin, Cardizem)? @ -No Were any procedures done? @ -No Diagnosis/symptom? Acute, or Chronic, or Acute on Chronic? Uncomplicated (without systemic symptoms) or Complicated (systemic symptoms)? @ -Hemorrhagic cystitis Side effects of treatment? @ -No Exacerbation, Progression, or Severe Exacerbation? @ -No Poses a threat to life or bodily function? How? (Chest pain, [place], [place], pneumonia, PE, COPD, DKA, ARF, appy, cholecystitis, CVA, Diverticulitis, Homicidal, Suicidal, threat to staff... and all critical care pts) @ -yes - Lab Data Result diagrams: 02/10/25 16:03 02/10/25 16:03 Lab Results 02/10/25 02/10/25 02/10/25 Range/Units 16:01 16:03 16:03 WBC 7.1 (3.8-10.6) k/uL RBC 5.10 (3.80-5.40) m/uL Hgb 15.4 (11.4-16.0) gm/dL Hct 47.2 H (34.0-46.0) % MCV 92.6 (80.0-100.0) fL MCH 30.1 (25.0-35.0) pg MCHC 32.5 (31.0-37.0) g/dL RDW 14.1 (11.5-15.5) % Plt Count 204 (150-450) k/uL MPV 7.8 Neutrophils % 66 % Lymphocytes % 21 % Monocytes % 8 % Eosinophils % 3 % Basophils % 0 % Neutrophils # 4.7 (1.3-7.7) k/uL Lymphocytes # 1.5 (1.0-4.8) k/uL Monocytes # 0.6 (0-1.0) k/uL Eosinophils # 0.2 (0-0.7) k/uL Basophils # 0.0 (0-0.2) k/uL PT 11.9 (10.0-12.5) sec INR 1.1 (<1.2) APTT 22.0 (22.0-30.0) sec Sodium (137-145) mmol/L Potassium (3.5-5.1) mmol/L Chloride (98-107) mmol/L Carbon Dioxide (22-30) mmol/L Anion Gap mmol/L BUN (7-17) mg/dL Creatinine (0.52-1.04) mg/dL Est GFR (CKD-EPI)AfAm (>60 ml/min/1.73 sqM) Est GFR (CKD-EPI)NonAf (>60 ml/min/1.73 sqM) Glucose (74-99) mg/dL Calcium (8.4-10.2) mg/dL Urine Color Urine Appearance (Clear) Urine pH (5.0-8.0) Ur Specific [place] (1.001-1.035) Urine Protein (Negative) Urine Glucose (UA) (Negative) Urine Ketones (Negative) Urine Blood (Negative) Urine Nitrite (Negative) Urine Bilirubin (Negative) Urine Urobilinogen (<2.0) mg/dL Ur Leukocyte Esterase (Negative) Urine RBC (0-5) /hpf Urine WBC (0-5) /hpf Ur Squamous Epith Cells (0-4) /hpf Urine Bacteria (None) /hpf Blood Type A Positive Blood Type Confirm Blood Type Recheck No Previous Record Bld Type Recheck Status CABO Indicated Antibody Screen NEGATIVE Spec Expiration Date 02/13/2025 - 230002/10/25 02/10/25 02/10/25 Range/Units 16:03 16:13 16:46 WBC (3.8-10.6) k/uL RBC (3.80-5.40) m/uL Hgb (11.4-16.0) gm/dL Hct (34.0-46.0) % MCV (80.0-100.0) fL MCH (25.0-35.0) pg MCHC (31.0-37.0) g/dL RDW (11.5-15.5) % Plt Count (150-450) k/uL MPV Neutrophils % % Lymphocytes % % Monocytes % % Eosinophils % % Basophils % % Neutrophils # (1.3-7.7) k/uL Lymphocytes # (1.0-4.8) k/uL Monocytes # (0-1.0) k/uL Eosinophils # (0-0.7) k/uL Basophils # (0-0.2) k/uL PT (10.0-12.5) sec INR (<1.2) APTT (22.0-30.0) sec Sodium 136 L (137-145) mmol/L Potassium 5.0 (3.5-5.1) mmol/L Chloride 102 (98-107) mmol/L Carbon Dioxide 26 (22-30) mmol/L Anion Gap 8 mmol/L BUN 25 H (7-17) mg/dL Creatinine 0.87 (0.52-1.04) mg/dL Est GFR (CKD-EPI)AfAm 79 (>60 ml/min/1.73 sqM) Est GFR (CKD-EPI)NonAf 69 (>60 ml/min/1.73 sqM) Glucose 90 (74-99) mg/dL Calcium 9.6 (8.4-10.2) mg/dL Urine Color Red Urine Appearance Turbid H (Clear) Urine pH 7.0 (5.0-8.0) Ur Specific [place] 1.019 (1.001-1.035) Urine Protein 2+ H (Negative) Urine Glucose (UA) Negative (Negative) Urine Ketones Negative (Negative) Urine Blood Large H (Negative) Urine Nitrite Negative (Negative) Urine Bilirubin Negative (Negative) Urine Urobilinogen <2.0 (<2.0) mg/dL Ur Leukocyte Esterase Large H (Negative) Urine RBC >182 H (0-5) /hpf Urine WBC 145 H (0-5) /hpf Ur Squamous Epith Cells 10 H (0-4) /hpf Urine Bacteria Many H (None) /hpf Blood Type Blood Type Confirm A Positive Blood Type Recheck Bld Type Recheck Status Antibody Screen Spec Expiration Date Disposition Clinical Impression: Hemorrhagic cystitis Disposition: HOME SELF-CARE Condition: Fair Instructions (If sedation given, give patient instructions): Urinary Tract Infection in Women (ED) Prescriptions: Cephalexin [Keflex] 500 mg PO Q12HR 7 Days #14 cap Is patient prescribed a controlled substance at d/c from ED?: No Referrals: Farzad Deluca DO [Primary Care Provider] - 1-2 days Time of Disposition: 17:11
[2025-02-10 16:12] LABS: Basophils % (A) 0 %; Eosinophils # (A) 0.2 k/uL (0-0.7); Eosinophils % (A) 3 %; HCT 47.2 % (34.0-46.0); HGB 15.4 gm/dL (11.4-16.0); Lymphocytes # (A) 1.5 k/uL (1.0-4.8); Lymphocytes % (A) 21 %; MCH 30.1 pg (25.0-35.0); MCHC 32.5 g/dL (31.0-37.0); MCV 92.6 fL (80.0-100.0); Mean Platelet Volume 7.8; Monocytes # (A) 0.6 k/uL (0-1.0); Monocytes % (A) 8 %; Neutrophils # (A) 4.7 k/uL (1.3-7.7); Neutrophils % (A) 66 %; Platelet Count 204 k/uL (150-450); RDW 14.1 % (11.5-15.5); WBC 7.1 k/uL (3.8-10.6)
[2025-02-10 16:20] LABS: African American GFR (CKD) 79 (>60 ml/min/1.73 sqM); Anion Gap 8 mmol/L; Blood Urea Nitrogen 25 mg/dL (7-17); Calcium 9.6 mg/dL (8.4-10.2); Carbon Dioxide 26 mmol/L (22-30); Chloride 102 mmol/L (98-107); Glucose 90 mg/dL (74-99); Non-African American GFR(CKD) 69 (>60 ml/min/1.73 sqM); Sodium 136 mmol/L (137-145)
[2025-02-10 16:28] LABS: INR 1.1 (<1.2); Prothrombin Time 11.9 sec (10.0-12.5)
[2025-02-10 16:59] LABS: Appearance,Urine Turbid (Clear); Bacteria,Urine Many /hpf; Bilirubin,Urine Negative (Negative); Blood,Urine Large (Negative); Color,Urine Red; Glucose,Urine (UA) Negative (Negative); Ketones,Urine Negative (Negative); Leukocyte Esterase,Urine Large (Negative); Nitrite,Urine Negative (Negative); Protein,Urine 2+ (Negative); RBC,Urine >182 /hpf (0-5); Specific Gravity,Urine 1.019 (1.001-1.035); Squamous Epithelial Cell,Urine 10 /hpf (0-4); Urobilinogen,Urine <2.0 mg/dL (<2.0); WBC,Urine 145 /hpf (0-5)
[2025-02-10] MEDS: cefTRIAXone IN SWFI 1,000 MG/10 ML SYRINGE IVP STA (17:18)
[2025-02-10 17:38] VITALS: BP 123/58; PULSE 50; RESP 18; TEMP 97.9
== END 2025-02-10 17:38 | disposition home or self-care (01) ==
LOC: EC 14:13
DX: N30.80 Other cystitis without hematuria (principal); R00.1 Bradycardia, unspecified; Z86.73 Personal history of transient ischemic attack (TIA), and cerebral infarction without residual deficits
CPT/HCPCS: 36415; 93005; 86900; 86901; 80048; 85025; 85610; 85730; 86850; 81001; 87086; 99283; 96374; J0696